=== PATIENT | male | born 1945 | race Caucasian/White ===

== ENCOUNTER 2016-06-16 20:25 | Inpatient (IN) | payer OTHER ==
[~2016-06-16] VITALS: Ht 190.5 cm; Wt 162.2 kg
[~2016-06-16 20:25] MED LIST: ALLOPURINOL300 M1 PO; AMLODIPINE BES2.5 MG PO; BACTRIM DS 8001 TAB PO; COUMADIN4 M1 PO; FUROSEMIDE80 M1 PO; GABAPENTIN300 M2 PO; JANTOVEN7.5 MG PO; KEFLEX500 MG PO; LISINOPRIL40 MG PO; MECLIZINE HCL12.5 M1 PO; METOLAZONE2.5 M1 PO; POTASSIUM CHLO20 ME2 PO; PRAVACHOL40 M1 PO; PREDNISONE10 M2 PO; PREDNISONE5 M1 PO; PREDNISONE5 MG PO; ROPINIROLE HCL0.5 MG PO; TOPROL XL 25MG25 MG PO; WARFARIN SODIU7.5 MG PO; ZYLOPRIM300 M1 PO
--- NOTE | 2016-06-16 21:00 | ED DYSPNEA/ASTHMA COMPLAINT ---
History of Present Illness General Chief Complaint: Chest Pain Stated Complaint: SOB AND CHEST PAIN X3 DAYS Source: patient, family, old records Exam Limitations: no limitations Vital Signs & Intake/Output Vital Signs & Intake/Output Vital Signs Date Time Temp Pulse Resp B/P Pulse O2 O2 Flow FiO2 Ox Delivery Rate 06/19 0014 97.9 78 20 102/60 94 Room Air 06/19 0000 CPAP 2.0L 06/18 2306 80 97 06/18 2000 Nasal 2.0L Cannula 06/18 1700 92 Nasal 2.0L Cannula 06/18 1530 97.4 78 20 102/60 94 Nasal 2.0L Cannula 06/18 0835 98.0 80 20 110/66 93 Room Air ED Intake and Output 06/19 0000 06/18 1200 Intake Total 1660 100 Output Total 1100 400 Balance 560 -300 Intake, Oral 1660 100 Output, Urine 1100 400 Patient 357 lb 359 lb Weight Allergies Coded Allergies: Phenothiazines (Mild, OCULOGYRIC 11/15/15) Iodinated Contrast Media - Oral and (IODINATED CONTRAST MEDIA - IV DYE) ( URTICARIA 11/15/15) Uncoded Allergies: SOMATADINE (Intermediate, DOSE RELATED- GETS HIVES 02/08/12) Reconcile Medications Allopurinol 300 MG TABLET 1 TAB PO DAILY GOUT (Reported) I TAB IN AM HALF TAB AT BED TIME Allopurinol (Zyloprim) 300 MG TABLET 150 MG PO AT BEDTIME GOUT Ascorbic Acid (Vitamin C) (Unknown Strength) TABLET (Unknown Dose) PO DAILY SUPPLEMENT (Reported) Cyanocobalamin (Vitamin B-12) 1,000 MCG TABLET 1 TAB PO DAILY SUPPLEMENT ( Reported) Escitalopram Oxalate 10 MG TABLET 1 TAB PO DAILY MENTAL HEALTH (Reported) Furosemide (Lasix) 80 MG TABLET 1 TAB PO DAILY DIURETIC (Reported) Potassium Chloride 20 MEQ TAB.ER.PRT 1 TAB PO DAILY SUPPLEMENT (Reported) Pravastatin Sodium 40 MG TABLET 1 TAB PO DAILY CHOLESTEROL (Reported) Ropinirole Hydrochloride (Requip) 0.25 MG TABLET 1 TAB PO BID RLS (Reported) Warfarin Sodium (Coumadin) 4 MG TABLET 1 TAB PO EOD BLOOD THINNER (Reported) Warfarin Sodium (Coumadin) 6 MG TABLET 1 TAB PO EOD BLOOD THINNER (Reported) Triage Note: PT STATES HE HAS HAD CHEST PAIN 4-5 TIMES AT HOME SINCE YESTERDAY. PT STATES HE HAS A HX OF A POSSIBLE MS, AFIB AND HAS A DEFIBULATOR TO HIS LEFT CHEST. PT IS ALERT AND ORIENTED, SKIN WARM AND DRY. PT STATES HE HAS ACTIVITY INTOLERANCE AND HAS BEEN SOB ON AND OFF. Triage Nurses Notes Reviewed? yes Onset: Abrupt Duration: day(s):, intermittent, waxing and waning Timing: recent history Severity: moderate Activities at Onset: none Prior Episodes/Possible Cause: no prior episodes Modifying Factors: Worsens With: other (EXERTION). HPI: Patient presents for evaluation of chest pain and shortness of breath over the past 3 days. Patient states he has had intermittent episodes of both. Past History Travel History Traveled to [place] past 21 day No Medical History Any Pertinent Medical History? see below for history Neurological: TIA EENT: NONE Cardiovascular: AFIB, CAD, hypertension, permanent pacemaker Respiratory: OBS SLEEP apnea, USES CPAP Gastrointestinal: hiatal hernia Hepatic: NONE Renal: chronic kidney disease, nephrolithiasis Musculoskeletal: gout, osteoarthritis Psychiatric: depression Endocrine: PRE-DIABETIC AIC Blood Disorders: NONE Cancer(s): NONE SURGICAL SERVICES DIRECTOR/Reproductive: NONE Other Medical Hx: cat scratch fever, psoriasis History of MRSA: No History of VRE: No History of CDIFF: No Surgical History Surgical History: appendectomy, cholecystectomy, colon resection, ileo jejeunal bypass with subsequent reversal bypass surgery bowel resection for adhesions with bowel ischemia incisional hernia repair Psychosocial History Who do you live with Family Services at Home None What is your primary language Belarusian Family History Family History, If Any: MOTHER Relation not specified for: FH: diabetes mellitus Hx Contributory? No Review of Systems Review of Systems Constitutional: Reports: no symptoms. EENTM: Reports: no symptoms. Respiratory: Reports: see HPI. Cardiovascular: Reports: see HPI. GI: Reports: no symptoms. Genitourinary: Reports: no symptoms. Musculoskeletal: Reports: no symptoms. Skin: Reports: no symptoms. Neurological/Psychological: Reports: no symptoms. Hematologic/Endocrine: Reports: no symptoms. Immunologic/Allergic: Reports: no symptoms. All Other Systems: Reviewed and Negative Physical Exam Physical Exam Respiratory: SEE BELOW Comments: Gen.: Well-nourished, well-developed, no acute respiratory distress. Overweight. Head: Normocephalic, atraumatic. Eyes: Normal inspection bilaterally Ears: Normal inspection bilaterally Nose: Normal inspection Throat/mouth : Moist mucosa Neck: Supple, full range of motion, no goiter Heart: Regular rate and rhythm, no murmurs rubs or gallops Lungs: Clear to auscultation bilaterally with normal air entry Chest: Nontender Back: Normal range of motion Abdomen: Soft, nontender, nondistended, normal bowel sounds Extremities: Normal range of motion grossly, equal radial pulses, calves nontender Neurologic: Cranial nerves grossly intact, speech is clear Skin: warm and dry Psychiatric: Calm, cooperative, no apparent delusions or hallucinations Core Measures ACS in differential dx? No Severe Sepsis Present: No Septic Shock Present: No Progress Differential Diagnosis: asthma, AMI, CHF, COPD, pneumonia, pneumothorax, unstable angina Plan of Care: Orders Procedure Date/time Status PROTHROMBIN TIME 06/19 06 Active CBC WITHOUT DIFFERENTIAL 06/19 06 Active BASIC ELECTROLYTES PLUS BUN&CR 06/19 06 Active OXYGEN SETUP CHG 06/17 UNK Complete OXYGEN 06/17 UNK Complete OXYGEN TRANSPORT 06/17 UNK Complete CONTIN. POS. AIRWAY PRESS. CHG 06/17 UNK Complete Current Medications Sig/Maria Dolores Start time Last Medication Dose Stop Time Status Admin Furosemide 80 MG DAILY 06/19 1000 AC (Lasix) Laboratory Tests 06/19/16 0615: Sodium Pending, Potassium Pending, Chloride Pending, Carbon Dioxide Pending, Anion Gap Pending, BUN Pending, Creatinine Pending, BUN/Creatinine Ratio Pending , PT Pending, INR Pending, CBC w Diff Pending, WBC Pending, RBC Pending, Hgb Pending, Hct Pending, MCV Pending, MCH Pending, RDW Pending, Plt Count Pending, MPV Pending, PUBS MCHC Pending Diagnostic Imaging: Discussed w/RAD: Radiology Read. CXR Impression: PATIENT: LOUANN WARD PRESENT AGE: 71 PATIENT ACCOUNT NO: [id number] : 45 LOCATION: [facility] [place] ORDERING PHYSICIAN: EBENEZER JANG MD SERVICE DATE: 06/16/16 EXAM TYPE: RAD - XRY-PORTABLE CHEST XRAY EXAMINATION: XR PORTABLE CHEST CLINICAL INFORMATION: 71-year-old male patient with CHF and COPD. COMPARISON: Portable chest x-ray on 11/15/2015. TECHNIQUE: AP portable semierect view of the chest. FINDINGS: The heart remains enlarged. Although overlying soft tissues makes interpretation difficult, there could be a developing pneumonia in the left lower lobe. The left pectoral pacemaker wires and generator are unchanged position. IMPRESSION: No definite CHF. Cardiomegaly. Question developing pneumonia in the left lower lobe. DICTATED BY: NEYMAR HERNÁNDEZ MD DATE/TIME DICTATED:06/16/162208 PRINT CUTTER:KURT DATE/TIME TRANSCRIBED:06/16/162208 CONFIDENTIAL, DO NOT COPY WITHOUT APPROPRIATE AUTHORIZATION. <Electronically signed in Other Vendor System> SIGNED BY: NEYMAR HERNÁNDEZ MD 06/16/162214 Initial ED EKG: LBBB, VENTRICULAR PACED RHYTHM WITH A RATE OF 83 Prior EKG: changed (NON-PACED RHYTHM ON PRIOR) Comments: 06/16/2016 9:01:52 PM patient is asymptomatic at this point, denying chest pain or shortness of breath. Departure Departure Disposition: HOME OR SELF CARE Condition: Stable Clinical Impression Primary Impression: Hypoxia Secondary Impressions: Anemia Qualifiers: Anemia type: unspecified type Qualified Code: D64.9 - Anemia, unspecified Chest pain Qualifiers: Chest pain type: unspecified Qualified Code: R07.9 - Chest pain, unspecified Dyspnea Qualifiers: Dyspnea type: dyspnea on exertion Qualified Code: R06.09 - Other forms of dyspnea Renal insufficiency Referrals: JASSON BIANCHI,JACKY cMkeon (PCP/Family) Departure Forms: Customer Survey General Discharge Information Admission Note Spoke With: RUPAL VIADL [facility] Documentation of Exam: Documentation of any treatments & extenuating circumstances including Concerns Regarding Discharge (functional status, medication knowledge or non-compliance, living conditions, etc.) that warrant an admission rather than observation: Patient presents with episodic dyspnea and hypoxia. His emergency department evaluation reveals hypoxia even in the presence of O2 supplementation at 2 L nasal cannula. Chest x-ray reveals the possibility of a developing left lower lobe infiltrate. Given the patient's advanced age and exertional dyspnea and chest pain or do not feel he is a good candidate for outpatient management at this time. I feel compliance with outpatient treatment could worsen his hypoxia and chest pain leading to a worsening of his overall clinical condition. I feel he now requires hospitalization with continuous cardiac monitoring for the possibility of dysrhythmias. He should also have serial troponin determinations and serial EKGs. Repeat chest x-ray should be obtained to assess for development of a pneumonia and this should be treated accordingly. Cardiology and pulmonary consultations should be considered. I feel the patient will require a multiple day hospitalization. Critical Care Note Critical Care Note Critical Care Time: 30-74 min
[2016-06-16 21:28] LABS: ABSOLUTE BASOPHIL COUNT 0 /CUMM (0.0-0.2); ABSOLUTE EOSINOPHIL COUNT 0.2 /CUMM (0.0-0.7); ABSOLUTE GRANULOCYTE CT 5.1 /CUMM (1.4-6.5); ABSOLUTE LYMPH COUNT 0.9 /CUMM (1.2-3.4); ABSOLUTE MONOCYTE COUNT 0.3 /CUMM (0.10-0.60); BASOPHIL % 0.4 % (0.0-2.0); EOSINOPHIL % 2.5 % (0-5); HEMATOCRIT 32.8 % (42-52); MEAN CORPUSCULAR HGB 28.3 PG (27.0-31.0); MEAN CORPUSCULAR HGB CONC 32.3 G/DL (33.0-37.0); MEAN CORPUSCULAR VOLUME 87.4 FL (80.0-94.0); MEAN PLATELET VOLUME 8.6 FL (7.4-10.4); PLATELET COUNT 195 /CUMM (130-400); RBC DISTRIBUTION WIDTH 18.3 % (11.5-14.5); RED BLOOD CELL CT 3.76 /CUMM (4.70-6.10); WHITE BLOOD CELL COUNT 6.5 /CUMM (4.8-10.8)
[2016-06-16] MEDS ORDERED: LASIX80 M1 PO (21:28)
[2016-06-16] MEDS ORDERED: LASIX20 M1 PO (21:28)
[2016-06-16] MEDS ORDERED: POTASSIUM CHLO20 ME2 PO (21:29)
[2016-06-16] MEDS ORDERED: ESCITALOPRAM OX10 MG PO (21:35)
[2016-06-16] MEDS ORDERED: COUMADIN4 M1 PO (21:37)
[2016-06-16 21:38] LABS: PT 33.4 SEC (9.4-12.5)
[2016-06-16] MEDS ORDERED: COUMADIN6 M1 PO (21:39)
[2016-06-16] MEDS ORDERED: VITAMIN B-121000 MC3 PO (21:47)
[2016-06-16] MEDS ORDERED: REQUIP0.25 MG PO (21:47)
[2016-06-16] MEDS ORDERED: VITAMIN C500 M8 PO (21:48)
--- NOTE | 2016-06-16 22:15 | RADIOLOGY REPORT ---
EXAMINATION: XR PORTABLE CHEST CLINICAL INFORMATION: 71-year-old male patient with CHF and COPD. COMPARISON: Portable chest x-ray on 11/15/2015. TECHNIQUE: AP portable semierect view of the chest. FINDINGS: The heart remains enlarged. Although overlying soft tissues makes interpretation difficult, there could be a developing pneumonia in the left lower lobe. The left pectoral pacemaker wires and generator are unchanged position. IMPRESSION: No definite CHF. Cardiomegaly. Question developing pneumonia in the left lower lobe.
--- NOTE | 2016-06-17 01:22 | History & Physical ---
MARCEL BIANCHI,[facility] 06/17/16 0121: General Information and HPI MD Statement: I have seen and personally examined LOUANN RODARTE and documented this H&P. The patient is a 71 year old M who presented with a patient stated chief complaint of shortness of breath and chest pain. Exam Limitations: no limitations History of Present Illness: This a 71-year-old male with past medical history of hypertension, CHF, CAD, ANTONELLA on night CPAP, A. fib on Coumadin, pacemaker placement, or a, sick ADD, and nephrolithiasis, TIA(2000), psoriasis (no longer on prednisone) , orthostatic hypotension, depression, and a [facility] admission on January 29 for acute on chronic right heart failure,presents with chief complaint of shortness of breath and chest pain. Patient reports his exertional dyspnea and chest pain started 3 days ago. The dyspnea is relieved by rest. Regarding his chest pain he describes it as stabbing, rated 5/10, localized around his lower substernum area and nonradiating. He does endorse nausea but however, he indicates that it is chronic for him due to his multiple medications. Patient also complains of a new onset of cough that started 3 days ago which he describes as nonproductive. Patient tates that his lower extremity swelling seems to be flactuating between +1 and +2 . He reports his furosemide 80mg was stopped by his PCP on Jun 02 and was instructed to take it prn based on his daily weights (Last dose 06/13 ). Last echocardiogram was in January 2016 which showed an ejection fraction of 40-45%. He denies any recent infection, fever, chills, vomiting, abdominal pain, or dysuria. Allergies/Medications Allergies: Coded Allergies: Phenothiazines (Mild, OCULOGYRIC 11/15/15) Iodinated Contrast Media - Oral and (IODINATED CONTRAST MEDIA - IV DYE) ( URTICARIA 11/15/15) Uncoded Allergies: SOMATADINE (Intermediate, DOSE RELATED- GETS HIVES 02/08/12) Home Med list Allopurinol 300 MG TABLET 1 TAB PO DAILY GOUT (Reported) I TAB IN AM HALF TAB AT BED TIME Allopurinol (Zyloprim) 300 MG TABLET 150 MG PO AT BEDTIME GOUT Ascorbic Acid (Vitamin C) (Unknown Strength) TABLET (Unknown Dose) PO DAILY SUPPLEMENT (Reported) Cyanocobalamin (Vitamin B-12) 1,000 MCG TABLET 1 TAB PO DAILY SUPPLEMENT ( Reported) Escitalopram Oxalate 10 MG TABLET 1 TAB PO DAILY MENTAL HEALTH (Reported) Furosemide (Lasix) 80 MG TABLET 1 TAB PO DAILY DIURETIC (Reported) Potassium Chloride 20 MEQ TAB.ER.PRT 1 TAB PO DAILY SUPPLEMENT (Reported) Pravastatin Sodium 40 MG TABLET 1 TAB PO DAILY CHOLESTEROL (Reported) Ropinirole Hydrochloride (Requip) 0.25 MG TABLET 1 TAB PO BID RLS (Reported) Warfarin Sodium (Coumadin) 4 MG TABLET 1 TAB PO EOD BLOOD THINNER (Reported) Warfarin Sodium (Coumadin) 6 MG TABLET 1 TAB PO EOD BLOOD THINNER (Reported) Past History Travel History Traveled to [place] past 21 day No Medical History Neurological: TIA EENT: NONE Cardiovascular: AFIB, CAD, hypertension, permanent pacemaker Respiratory: OBS SLEEP apnea, USES CPAP Gastrointestinal: hiatal hernia Hepatic: NONE Renal: chronic kidney disease, nephrolithiasis Musculoskeletal: gout, osteoarthritis Psychiatric: depression Endocrine: PRE-DIABETIC AIC Blood Disorders: NONE Cancer(s): NONE FUNERAL ARRANGEMENT DIRECTOR/Reproductive: NONE Other Medical Hx: cat scratch fever, psoriasis History of MRSA: No History of VRE: No History of CDIFF: No Surgical History Surgical History: appendectomy, cholecystectomy, colon resection, ileo jejeunal bypass with subsequent reversal bypass surgery bowel resection for adhesions with bowel ischemia incisional hernia repair Past Family/Social History Family History Relations & Conditions if any MOTHER Relation not specified for: FH: diabetes mellitus Psychosocial History Services at Home: None ETOH Use: denies use Illicit Drug Use: denies illicit drug use Functional Ability ADLs Independent: dressing, eating, toileting, bathing. Ambulation: independent IADLs Independent: shopping, housework, finances, food prep, telephone, transportation , medication admin. Review of Systems Review of Systems Constitutional: Denies: fever, malaise, weakness. EENTM: Denies: eye pain, eye drainage, eye tearing. Cardiovascular: Reports: chest pain, edema. Denies: orthopena, palpitations. Respiratory: Reports: cough. Denies: hemoptysis, orthopnea, sputum production. GI: Denies: diarrhea, distention, bowel incontinence, melena. Genitourinary: Denies: hematuria, hesitation, nocturia. Musculoskeletal: Denies: joint swelling, muscle pain. Skin: Reports: dryness, rash. Neurological/Psychological: Denies: anxiety, ataxia, cognitive dysfunction. Hematologic/Endocrine: Reports: no symptoms. Exam & Diagnostic Data Last 24 Hrs of Vital Signs/I&O Vital Signs Date Time Temp Pulse Resp B/P Pulse O2 O2 Flow FiO2 Ox Delivery Rate 06/17 0235 97.4 55 18 126/78 95 Nasal 2.0L Cannula 06/17 0220 Nasal 2.0L Cannula 06/17 0158 96.5 77 18 121/63 95 Room Air 06/16 2202 71 20 104/57 95 Nasal 2.0L Cannula 06/16 2128 Nasal 2.0L Cannula 06/16 2057 98.6 63 20 119/73 93 Nasal 2.0L Cannula Intake & Output 06/17 0800 06/17 0000 06/16 1600 Intake Total Output Total Balance Patient 165.108 kg Weight Physical Exam General Appearance Alert, Oriented X3, Cooperative Skin psoritic plaques in upeer and lower extremities HEENT Atraumatic, PERRLA, EOMI, Mucous Membr. moist/pink Neck Supple, No thryomegaly, +2 Carotid Pulse wo Bruit, JVD prominent on left side Lymphatic Cervical nl Cardiovascular Regular Rate, Normal S1, Normal S2 Lungs Clear to Auscultation, Normal Air Movement Abdomen Soft, No Tenderness, distended Neurological Normal Speech, Sensation Intact Extremities No Clubbing, No Cyanosis, +1 pitting edema bilaterally Vascular Pulses Symmetrical Last 24 Hrs of Labs/Kyle: Laboratory Tests 06/17/16 0330: Troponin I Pending 06/16/162134: pH 7.41, pCO2 43, pO2 68 L, HCO3 27, ABG O2 Sat (Measured) 93.0 L, P-50 (Temp Corrected) N, Carboxyhemoglobin 0.3 L, O2 Concentration % 2L, Temperature 98.6, O2 Delivery Method NC, Phlebotomy Draw Site RIGHT RADIAL 06/16/162104: Anion Gap 11, Estimated GFR 27 L, BUN/Creatinine Ratio 7.9, Glucose 85, Calcium 7.8 L, Phosphorus 3.7, Magnesium 1.7, Troponin I 0.04, Gol-K-Wqaurbgegpo Pept 3500 H, Free T4 1.28, Total T3 0.91 L, TSH &T3 &Free T4 Intrp 4.830 H, PT 33.4 H, INR 3.22 H, CBC w Diff NO MAN DIFF REQ, RBC 3.76 L, MCV 87.4, MCH 28.3, RDW 18.3 H, MPV 8.6, Gran % 78.0 H, Lymphocytes % 14.3 L, Monocytes % 4.8, Eosinophils % 2.5, Basophils % 0.4, Absolute Granulocytes 5.1, Absolute Lymphocytes 0.9 L, Absolute Monocytes 0.3, Absolute Eosinophils 0.2, Absolute Basophils 0, PUBS MCHC 32.3 L Microbiology 06/17 0042 BLOOD: Blood Culture - RECD 06/17 21 BLOOD: Blood Culture - RECD Diagnostic Data EKG Results no acute ischemic changes noted CXR Results SERVICE DATE: 06/16/16 EXAM TYPE: RAD - XRY-PORTABLE CHEST XRAY EXAMINATION: XR PORTABLE CHEST CLINICAL INFORMATION: 71-year-old male patient with CHF and COPD. COMPARISON: Portable chest x-ray on 11/15/2015. TECHNIQUE: AP portable semierect view of the chest. FINDINGS: The heart remains enlarged. Although overlying soft tissues makes interpretation difficult, there could be a developing pneumonia in the left lower lobe. The left pectoral pacemaker wires and generator are unchanged position. IMPRESSION: No definite CHF. Cardiomegaly. Question developing pneumonia in the left lower lobe. DICTATED BY: NEYMAR HERNÁNDEZ MD Assessment/Plan Assessment: This is a 71-year-old male with an extensive history of CHF, hypertension, hyperlipidemia, COPD, and a recent change in his furosemide use presents with chief complaints of exertional dyspnea and chest pain. Patient also has radiological findings suggestive of PNA. Impression * Acute on chronic CHF. * CAP. * Supratherapeutic INR Plan * Admit to telemetry for close cardiac monitoring * Will serial troponins and EKG to rule out ACS * Will initiate furosemide 60 mg IV one-time dose and then 40 mg IV bid * Strict ins and outs * Daily weights * Echocardiogram in the morning * Ceftriaxone and Azithromycin for treatment of possible CAP, if patient continues to be afebrile and no leukocytosis, will consider stopping ABX next day. * Continue nocturnal CPAP with settings of 18/4 * Will hold off Coumadin in the setting of supratherapeutic INR and restart when INR is at goal (2-3). As Ranked By This Provider Problem List: 1. Acute exacerbation of CHF (congestive heart failure) 2. Supratherapeutic INR Core Measures/Miscellaneous Acute Coronary Syndrome ACS Diagnosis: No Cerebrovascular Accident CVA/TIA Diagnosis: No Congestive Heart Failure CHF Diagnosis: No Venous Thromboembolism VTE Risk Factors: Acute medical illness, Age > 40 VTE Prophylaxis Ordered Inpt: Mech/Pharm Contraindicate (SUPRA THERAPUTIC INR) No Mech VTE prophylaxis d/t: LE Edema No VTE Pharm Prophylaxis d/t: Medical contraindication VTE Diagnosis: No VTE Type: NONE VTE Confirmed by (Test): NONE Severe Sepsis Severe Sepsis Present: No Septic Shock Septic Shock Present: No Miscellaneous Documentation Attending Case Discussed With: KEENAN VIDAL MD Primary Care Physician: JACKY SPAULDING MD Patient sees these Specialists LICENSED REACTOR OPERATOR Level of Patient Care: Telemetry Consults Needed: Consulting Specialty: Cardiology ESSENCE ANDERSON 06/17/16 0310: Resident Review Statement Resident Statement: examined this patient, discussed with advertising intern, agreed with advertising intern, discussed with family, reviewed EMR data (avail), discussed with nursing , reviewed images Other Findings: Mr Rodarte is a pleasant 71-year-old gentleman with a PMH of A. fib (on Coumadin), HTN, CAD, pacemaker implantation for sinus bradycardia and second- degree AV block, HLD, TIA and (2000), HLD, or say on nocturnal CPAP (22/09), psoriasis (previously on prednisone 5 mg daily discontinued one week ago), chronic lower extremity swelling, RLS, depression, CKD. Pt presents with 3 day duration of shortness of breath and substernal chest pain , nonradiating, 5/10, partially relieved with laying backwards. He reports 2 week duration of decreased appetite and intermittent episodes of nausea. Patient was previously on furosemide 80 mg daily until 06/02/2016 after discussion with his PCP to continue with PRN lasix based on his weight and lower extremity swelling. He took 1 dose on June 13 and reports stable lower extremity swelling since then. Echocardiogram (01/28/2016): 45-50%. RV systolic pressure 38.3mmHg Stress test (03/21/2012): No changes noted ROS: Mild productive cough past few days. Weight today: 364 pounds VS: BP 119/73, HR 63, RR 20, SPO2 93% on 2 LNC, T 98.6 PE: Alert, no acute distress. Irregular rhythm. Distant lung sounds, slight crackles appreciated on the left lung field. Hyperactive bowel sounds. 2+ pitting edema bilateral lower extremities Pertinent labs: WBC 6.5, H&H 10.6/32.8, potassium 3.8, BUN/Cr CR 19/2.4, glucose 85 INR: 3.22 ProBNP: 3500 Troponin: 0.04 AB.41/43/68/93/2 LNC CXR: No CHF. Cardiomegaly. Probable left lower lobe pneumonia Problem list: 1. CHF exacerbation 2. Community acquired pneumonia 3. Chronic kidney disease 4. Elevated INR Plan: * Admit to telemetry monitoring for continuous cardiac rhythms * Serial EKG/troponin: 0300 hrs., 0900 * Echocardiogram in the a.m. Consult with Dr. Howard in AM * Follow-up sputum, urine cultures. Patient is on ceftriaxone and azithromycin. Assess the need for continued antibiotics based on clinical picture in the AM * Monitor renal function in the setting of IV Lasix * Hearrt healthy Diet * Holdding coumadin based on elevated INR. Trend and dose accordingly * DVT prophylaxis: coumadin * Full code MARCY BIANCHI, [facility] 06/17/16 0540: Attending MD Review Statement Attending Statement Attending MD Statement: examined this patient, discuss w/resident/PA/PREVENTION RN, agreed w/resident/PA/PREVENTION RN Attending Assessment/Plan: 71 yo morbidly obese M with h/o Afib on coumadin, HTN, CAD, AV block s/p PPM, TIA, ANTONELLA on CPAP, gout (tapered off prednisone 1 week back), CKD stage 3B, chronic right and left heart failure, pw 3-day h/o exertional dyspnea and intermittent stabbing chest pain, progressing to dyspnea at rest today. Associated with nonproductive cough, no chills or fever. Patient was last admitted to [facility] Jan 2016 for acute on chronic CHF and discharged on lasix 80 mg daily. Prior to this he was on 160 mg daily but resulted in orthostatic hypotension, hence dose was reduced. However, recently on Jun 02 patient saw his PCP who suggested him to take lasix as needed only if he gains weight or notices worsening LE edema. So patient has not taken lasix since, except for one dose on Jun 13 when he noticed his LE edema had worsened from 1+ to 3+. No change in weight per patient. Vitals: afebrile, sats 88% RA --> 93% on 2L. Exam: Difficult to appreciate JVD. Chest bibasilar crackles (L>R), S1S2 irregularly irregular, LE: 3+ pitting pedal edema upto knees. Labs: no leukocytosis, INR 3.22, creat 2.4 (2.0-2.2), trop neg , proBNP 3500. AB.41/43/68/27. CXR: cardiomegaly, no definite CHF, ? developing pneumonia in LLL. Echo (2016): EF 45-50%, 1. Acute hypoxemic respiratory failure in the setting of acute on chronic heart failure, with possible developing LLL pneumonia. TRC nebs, strict I/Os, daily weights, IV lasix 60 mg now, followed by 40 BID, rule out ACS, obtain Echo, Cardio consult (Dr. Howard). Panculture done, IV ceftriaxone and azithro given in ER. Will check a rapid flu. I am not convinced about the pneumonia. Will continue abx for now, if he remains afebrile, with no leukocytosis I would DC antibiotics. PE seems less likely given supratherapeutic INR. 2. CKD stage 3B with slight worsening in creatinine. Monitor BUN/creatinine while on lasix. 3. Coagulopathy. Hold coumadin, recheck INR in AM. DVT ppx high INR on coumadin. Full code.
[2016-06-17 02:35] VITALS: BP 126/78
--- NOTE | 2016-06-17 05:40 | Admission Certification ---
Admission Certification Certification Statement - As attending physician, I certify that at the time of - admission, based on clinical presentation, severity of - symptoms, need for further diagnostic testing and - therapeutic interventions, and risk of adverse outcomes - without in-hospital treatment, in my clinical assessment, - this patient requires an acute hospital stay for a minimum - of two nights or longer. I have also considered psychsocial - factors such as support system, advanced age, financial - issues, cognitive issues, and failed out-patient treatments, - past re-admission history, safety of patient, and lack of - compliance as applicable. Specific rationale supporting this admission is: Acute hypoxemic respiratory failure, acute on chronic heart failure, possible LLL pneumonia.
[2016-06-17 07:54] VITALS: BP 112/68
--- NOTE | 2016-06-17 11:13 | PN- Housestaff ---
RENEE BIANCHI,[facility] 06/17/16 1112: Subjective Follow-up For: -Acute exacerbation of congestive heart failure -Chronic kidney disease stage III -Possible pneumonia -Atrial fibrillation on Coumadin Tele-Events Since Last Visit: Atrial fibrillation with rate 61-64 PVC Subjective: Patient was seen and examined this morning, his lying comfortably in his bed with a nasal cannula 2.5 L saturation 95%. The patient endorses feeling more better this morning, reported dry cough with chest pain upon coughing, he reported nausea that he used to have it from his depression medication. No overnight events was reported by patient or the nurses. Vital signs are stable Review of Systems Constitutional: Denies: fever, weakness. EENTM: Denies: blurred vision, nasal congestion. Cardiovascular: Reports: chest pain. Denies: palpitations. Respiratory: Reports: cough. Denies: orthopnea, short of breath, sputum production. Gastrointestinal: Reports: nausea. Denies: abdominal pain, vomiting. Genitourinary: Denies: dysuria, hematuria. Objective Last 24 Hrs of Vital Signs/I&O Vital Signs Date Time Temp Pulse Resp B/P Pulse O2 O2 Flow FiO2 Ox Delivery Rate 06/17 0800 95 Nasal 2.0L Cannula 06/17 0754 97.8 74 20 112/68 96 Nasal Cannula 06/17 0235 97.4 55 18 126/78 95 Nasal 2.0L Cannula 06/17 0220 Nasal 2.0L Cannula 06/17 0158 96.5 77 18 121/63 95 Room Air 06/16 2202 71 20 104/57 95 Nasal 2.0L Cannula 06/16 2128 Nasal 2.0L Cannula 06/16 2057 98.6 63 20 119/73 93 Nasal 2.0L Cannula Intake & Output 06/17 1600 06/17 0800 06/17 0000 Intake Total 480 100 Output Total 400 Balance 480 -300 Intake, IV Intake, Oral 480 100 Number 1 Bowel Movements Output, Urine 400 Patient 162.159 kg 165.108 kg Weight Physical Exam General Appearance: Alert, Oriented X3, Cooperative, No Acute Distress Skin: No Rashes, No Breakdown, No Significant Lesion HEENT: Atraumatic, PERRLA, EOMI, Mucous Membr. moist/pink Neck: Supple Cardiovascular: Regular Rate, Normal S1, Normal S2, No Murmurs Lungs: bilateral basal crackles Abdomen: Normal Bowel Sounds, Soft, No Tenderness Neurological: Normal Speech, Strength at 5/5 X4 Ext, Normal Tone, Sensation Intact, Cranial Nerves 3-12 NL, Reflexes 2+ Extremities: No Clubbing, No Cyanosis, bilateral pedal edema +2 Assessment/Plan Assessment: Mr. Rodarte is a 71 year old gentleman with a history of Atrial fibrillation on coumadin, second-degree AV block with pacemaker, CHF (Last ECHO in Jan 2016 EF 45-50%), TIA (2000), HTN, CAD, ANTONELLA on CPAP, gout, CKD stage III, orthostatic hypotension, psoriasis not on prednisone and depression. He presented with an increased exertional shortness of breath and chest pain since 3 days. H/o non productive cough, chest pain was 5/10 in intensity, non-radiating and occurs in intervals, bilateral lower limb swelling on Lasix. Chest xray showed No definite CHF. Cardiomegaly. Question developing pneumonia in the left lower lobe. Problem list #Acute respiratory failure due to acute on chronic heart failure #Atrial fibrillation on Coumadin #Pretension and hyperlipidemia #Questionable Left lower lobe pneumonia #Chronic kidney disease stage III #Gout #Depression #Sleep obstructive apnea #History of varicose veins #Acute respiratory failure 2/2 acute on chronic heart failure -TRC nebs -Continue nasal cannula 2.5 L saturation above 92% -Strict I/O charting and daily weight monitoring - IV Lasix 40mg BID -ECG shows no changes. Initial 2 trop levels were not elevated and were down trending. Trend Trop levels to rule out ACS -Consider obtain ECHO -Cardio consult by Dr. Howard #Acute fibrillation on Coumadin -INR on admission 3.22 -Will hold Coumadin for now because of supratherapeutic INR -Target INR is 2/2.5 #Hypertension and hyperlipidemia -Continue Lasix IV 40 twice a day -Continue pravastatin 40 mg once daily #Questionable Left lower lobe pneumonia -Chest x-ray suggestive for possible left lower lobe pneumonia -Patient received 1 dose of IV Ceftriaxone and Azithromycin -Continue off antibiotic giving the patient is a febrile and no WBC. The thinking process is that his respiratory symptoms is due to CHF exacerbation #CKD III -Admission creatinine is 2.4, days line is around 1.8-2 -Monitor BUN and Creatinine levels and electrolytes especially potassium while patient is on lasix #Gout -continue Allopurinol home dose #Depression -Continue Escitelopram home dose #Rest left leg syndrome -Continue ropinirole 0.25 mg twice a day by mouth #Sleep apnea -Continue CPAP at bedtime #History of varicose veins -Patient is wearing compression stocks #Diet heart healthy diet #DVT prophylaxis ALPs, Coumadin on hold for supratherapeutic INR #Code full code #Consultation cardiology Problem List: 1. Supratherapeutic INR 2. Acute exacerbation of CHF (congestive heart failure) 3. Obstructive sleep apnea syndrome 4. hx of atrial fibrillation 5. Benign essential hypertension 6. Chronic kidney disease Pain Ratin Pain Location: N/A Pain Goal: Remain pain free Pain Plan: as nedded Tomorrow's Labs & Rationales: INR and setting of atrial fibrillation on Coumadin with the superior therapeutic INR CBC and setting of possible pneumonia CMP tomorrow monitor chronic kidney disease on Lasix Consulting Request: Consulting Specialty: Cardiology DAVID MESA MD 06/17/16 1635: Attending MD Review Statement Attending Statement Attending MD Statement: examined this patient, discuss w/resident/PA/CUSTOMER ACCOUNT REPRESENTATIVE, agreed w/resident/PA/CUSTOMER ACCOUNT REPRESENTATIVE, reviewed EMR data (avail), discussed with nursing, discussed with case mgmt, reviewed images, amended to note Attending Assessment/Plan: The patient was seen and discussed with house staff. Agree with the plan of care as outlined. Cardiology input appreciated.
--- NOTE | 2016-06-17 14:18 | Cons- Cardiology ---
General Information and HPI Consulting Request Date of Consult: 06/17/16 Requested By: DAVID MESA MD History of Present Illness: Fortunato is a 71 year old male with a history of hypertension, dyslipidemia, coronary artery disease, permanent pacemaker and atrial fibrillation. At baseline he tends to be short of breath with exertion and was therefore started on a higher dose of Lasix at 160mg daily to treat this issue. As such, he became overdiuresed with rising creatinine and the Lasix was stopped. Beginning this past Wednesday, this patient noted worsening of her exertional shortness of breath. There was no accompanying orthopnea or leg edema beyond his baseline. He also noted a mild to moderate non-radiating chest tightness that was initially noted with exertion but progressed to being noticed at rest. Nausea is also present but is not uniquely associated with his chest discomfort. This patient also has a cough. To review this patient's prior history, he did have a recent hospital admission for fluid overload that I felt was exacerbated by Gabapentin. He switched to Requip for his restless legs with some improvement. He has also had hypertension and fluid overload related to copious NSAID use to treat his gout but he now refrains from taking NSAIDS. His baseline creatinine was 1.8 but this has now gone up considerably. His latest echocardiogram shows a normal EF of 70% with mild to moderate left ventricular hypertrophy, a markedly enlarged left atrium and mild tricuspid and pulmonic regurgitation. A mildly enlarged aortic root and ascending aorta was also noted. To review the patient's past cardiac workup, this patient has undergone a Persantine stress test, which showed no evidence of myocardial ischemia, although there is a fixed defect in the inferior wall. His ejection fraction on this study was 38%. An older echocardiogram, showed an ejection fraction of greater than 35 to 40% with a moderate left ventricular hypertrophy. The right ventricle was mildly to moderately dilated. The right atrium was mildly dilated and the left atrium was moderately enlarged. In terms of cardiac valves, there was trace mitral regurgitation, mild tricuspid regurgitation, and mildly elevated pulmonary pressures at 46 mmHg. A mildly dilated aortic root was also noted. This EF was clearly less than on his most recent echocardiogram. Prior cardiac workup has also included a cardiac catheterization, which was pursued for chest discomfort. This study showed mild luminal irregularities in the LAD and left circumflex and moderate luminal irregularities in the dominant right coronary artery. His EF was 35 to 40% with inferoapical hypokinesis on this study. In the past, this patient did have some palpitations and dizziness, and he has had at least one syncopal episode, which occurred while he was working in a hot kitchen. He is status post permanent pacemaker placement for symptomatic sinus bradycardia with second-degree AV block and greater than 3-second pauses. Finally, it should be recalled that this patient has had some prior episodes of oral numbness as well as other symptoms that are somewhat suggestive of TIA's. He has perhaps had some other more permanent neurologic deficits. This may be related to thrombotic emboli from his atrial fibrillation. He has had prior cardioversions that did not result in durable maintenance of normal sinus rhythm. He is therefore on Coumadin for stroke prophylaxis. Allergies/Medications Allergies: Coded Allergies: Phenothiazines (Mild, OCULOGYRIC 11/15/15) Iodinated Contrast Media - Oral and (IODINATED CONTRAST MEDIA - IV DYE) ( URTICARIA 11/15/15) Uncoded Allergies: SOMATADINE (Intermediate, DOSE RELATED- GETS HIVES 02/08/12) Home Med List: Allopurinol 300 MG TABLET 1 TAB PO DAILY GOUT (Reported) I TAB IN AM HALF TAB AT BED TIME Allopurinol (Zyloprim) 300 MG TABLET 150 MG PO AT BEDTIME GOUT Ascorbic Acid (Vitamin C) (Unknown Strength) TABLET (Unknown Dose) PO DAILY SUPPLEMENT (Reported) Cyanocobalamin (Vitamin B-12) 1,000 MCG TABLET 1 TAB PO DAILY SUPPLEMENT ( Reported) Escitalopram Oxalate 10 MG TABLET 1 TAB PO DAILY MENTAL HEALTH (Reported) Furosemide (Lasix) 80 MG TABLET 1 TAB PO DAILY DIURETIC (Reported) Potassium Chloride 20 MEQ TAB.ER.PRT 1 TAB PO DAILY SUPPLEMENT (Reported) Pravastatin Sodium 40 MG TABLET 1 TAB PO DAILY CHOLESTEROL (Reported) Ropinirole Hydrochloride (Requip) 0.25 MG TABLET 1 TAB PO BID RLS (Reported) Warfarin Sodium (Coumadin) 4 MG TABLET 1 TAB PO EOD BLOOD THINNER (Reported) Warfarin Sodium (Coumadin) 6 MG TABLET 1 TAB PO EOD BLOOD THINNER (Reported) Review of Systems Review of Systems: nausea, gout, cough Past History Travel History Traveled to [place] past 21 day No Medical History Blood Transfusion Hx: No Neurological: TIA EENT: NONE Cardiovascular: AFIB, CAD, hypertension, permanent pacemaker Respiratory: OBS SLEEP apnea, USES CPAP Gastrointestinal: hiatal hernia Hepatic: NONE Renal: chronic kidney disease, nephrolithiasis Musculoskeletal: gout, osteoarthritis Psychiatric: depression Endocrine: PRE-DIABETIC AIC Blood Disorders: NONE 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 Mother: of pancreatic cancer at age 72 Father: unknown history Psychosocial History Where Do You Live? Home Services at Home: None Smoking Status: Never Smoked ETOH Use: denies use Illicit Drug Use: denies illicit drug use Functional Ability ADLs Independent: dressing, eating, toileting, bathing. Ambulation: independent IADLs Independent: shopping, housework, finances, food prep, telephone, transportation , medication admin. Exam & Diagnostic Data Vital Signs and I&O Vital Signs Date Time Temp Pulse Resp B/P Pulse O2 O2 Flow FiO2 Ox Delivery Rate 06/17 0800 95 Nasal 2.0L Cannula 06/17 0754 97.8 74 20 112/68 96 Nasal Cannula 06/17 0235 97.4 55 18 126/78 95 Nasal 2.0L Cannula 06/17 0220 Nasal 2.0L Cannula 06/17 0158 96.5 77 18 121/63 95 Room Air 06/16 2202 71 20 104/57 95 Nasal 2.0L Cannula 06/16 2128 Nasal 2.0L Cannula 06/16 2057 98.6 63 20 119/73 93 Nasal 2.0L Cannula Intake & Output 06/17 1600 06/17 0800 06/17 0000 06/16 1600 06/16 0800 06/16 0000 Intake Total 100 Output Total 400 Balance -300 Intake, Oral 100 Output, Urine 400 Patient 358 lb 364 lb Weight Physical Exam: General: WD/ obese male in NAD; alert and oriented x 3 HEENT: NC/AT, PERRL, EOMI, clear oropharynx Neck: no JVD, no carotid bruit Heart: irregularly irregular without murmur, galop or rub Lungs: clear bilaterally Abdomen: soft, obese, NT, +ve bowel sounds Extremities: 2+ leg edema bilaterally Diagnostic Data EKG Results atrial fibrillation with IVCD and T wave inversion in leads V3-V5 Assessment/Plan Assessment/Plan * This patient has a wandering chest discomfort that was also noted in the setting of a cough. I suspect that this patient's discomfort is a musculoskeletal pain related to his cough. In consideration of his risk factors I recommend risk stratification with a pharmacologic stress test. * Agree with antibiotic therapy. * This patient has renal insufficiency that is beyond his baseline. We have been avoiding ACEI and ARB's due to this situation. I suspect that Fortunato was overdiuresed in the recent past. He should be on Lasix 80mg PO daily. Extra lasix can be given PRN if there is swelling beyond baseline. For now I would go with the 80 PO daily with careful monitoring of his BUN, creatinine and potassium. * Obtain an echocardiogram. * This patient has chronic atrial fibrillation. He was cardioverted in the past but would not stay in a sinus rhythm. Keep his INR between 2 and 2.5. * This patient had a Medtronic dual chamber pacemaker placed for symptomatic bradycardia with second degree AV block with greater than 3 second pauses. He is now in atrial fibrillation. Consult Acknowledgment - Thank you for your consult request.
[2016-06-17 15:41] VITALS: BP 110/70
[2016-06-18 00:15] VITALS: BP 110/60
[2016-06-18 08:03] LABS: ABSOLUTE BASOPHIL COUNT 0 /CUMM (0.0-0.2); ABSOLUTE EOSINOPHIL COUNT 0.2 /CUMM (0.0-0.7); ABSOLUTE LYMPH COUNT 0.9 /CUMM (1.2-3.4); ABSOLUTE MONOCYTE COUNT 0.4 /CUMM (0.10-0.60); BASOPHIL % 0.4 % (0.0-2.0); EOSINOPHIL % 2.5 % (0-5); GRANULOCYTE % 77.4 % (42.2-75.2); HEMATOCRIT 31.9 % (42-52); MEAN CORPUSCULAR HGB 28.2 PG (27.0-31.0); MEAN CORPUSCULAR HGB CONC 32.2 G/DL (33.0-37.0); MEAN CORPUSCULAR VOLUME 87.5 FL (80.0-94.0); MEAN PLATELET VOLUME 8.9 FL (7.4-10.4); PLATELET COUNT 188 /CUMM (130-400); RBC DISTRIBUTION WIDTH 18.8 % (11.5-14.5); RED BLOOD CELL CT 3.65 /CUMM (4.70-6.10); WHITE BLOOD CELL COUNT 6.4 /CUMM (4.8-10.8)
[2016-06-18 08:26] LABS: PT 31.8 SEC (9.4-12.5)
[2016-06-18 08:35] VITALS: BP 110/66
--- NOTE | 2016-06-18 09:34 | PN- Cardiology ---
Subjective Subjective: * Patient continues to report a cough. * atrial fibrillation with controlled heart rate * creatinine 2.4 * normal WBC count of 6.4 Objective Vital Signs and I&Os Vital Signs Date Time Temp Pulse Resp B/P Pulse O2 O2 Flow FiO2 Ox Delivery Rate 06/18 0835 98.0 80 20 110/66 93 Room Air 06/18 0051 70 95 06/18 0015 98.1 75 20 110/60 95 Nasal 2.0L Cannula 06/18 0000 95 Nasal 2.0L Cannula 06/17 1541 98.1 69 16 110/70 94 Nasal 2.5L Cannula Intake & Output 06/18 1600 06/18 0800 06/18 0000 06/17 1600 06/17 0800 06/17 0000 Intake Total 100 480 100 Output Total 400 850 400 Balance -300 -850 480 -300 Intake, IV Intake, Oral 100 480 100 Number 1 Bowel Movements Output, Urine 400 850 400 Patient 358 lb 364 lb Weight Physical Exam: General: WD/ obese male in NAD; alert and oriented x 3 Neck: no JVD, no carotid bruit Heart: irregularly irregular without murmur, galop or rub Lungs: clear bilaterally Extremities: 1+ leg edema bilaterally Assessment/Plan Assessment/Plan * This patient only has chest discomfort after coughing. There is no indication of an ACS. In consideration of his risk factors I recommend risk stratification with a pharmacologic stress test. * Agree with antibiotic therapy. * This patient has renal insufficiency that is beyond his baseline. We have been avoiding ACEI and ARB's due to this situation. I suspect that Fortunato was overdiuresed in the recent past. He should be on Lasix 80mg PO daily. Extra lasix can be given PRN if there is swelling beyond baseline. For now I would go with the 80 PO daily with careful monitoring of his BUN, creatinine and potassium. * Obtain an echocardiogram. * This patient has chronic atrial fibrillation. He was cardioverted in the past but would not stay in a sinus rhythm. Keep his INR between 2 and 2.5. * This patient had a Medtronic dual chamber pacemaker placed for symptomatic bradycardia with second degree AV block with greater than 3 second pauses. He is now in atrial fibrillation. Continue telemetry? Yes
--- NOTE | 2016-06-18 11:50 | PN- Housestaff ---
RENEE BIANCHI,[facility] 06/18/16 1148: Subjective Follow-up For: -Acute exacerbation of congestive heart failure -Chronic kidney disease stage III -Possible pneumonia -Atrial fibrillation on Coumadin Subjective: Patient was seen and examined this morning, his lying comfortably in his bed with CPAP. The patient endorses having cough that is productive of scanty clear sputum and chest pain only when he coughs. He has no fevers but says he has always had chills, even prior to admission. He endorses nausea, but again, he says that is not a new symptom. No overnight events was reported by patient or the nurses. Vital signs are stable. His pedal edema has reduced and is now at 1+. He is making adequate urine I/O -1000. Review of Systems Constitutional: Denies: see HPI. Objective Last 24 Hrs of Vital Signs/I&O Vital Signs Date Time Temp Pulse Resp B/P Pulse O2 O2 Flow FiO2 Ox Delivery Rate 06/18 1700 92 Nasal 2.0L Cannula 06/18 1530 97.4 78 20 102/60 94 Nasal 2.0L Cannula 06/18 0835 98.0 80 20 110/66 93 Room Air 06/18 0800 95 Nasal 2.0L Cannula 06/18 0051 70 95 06/18 0015 98.1 75 20 110/60 95 Nasal 2.0L Cannula 06/18 0000 95 Nasal 2.0L Cannula Intake & Output 06/18 1600 06/18 0800 06/18 0000 Intake Total 1000 100 Output Total 850 400 850 Balance 150 -300 -850 Intake, Oral 1000 100 Output, Urine 850 400 850 Patient 162.159 kg Weight Physical Exam General Appearance: Alert, Oriented X3, Cooperative, No Acute Distress Skin: No Rashes, No Breakdown, No Significant Lesion HEENT: Atraumatic, PERRLA, EOMI, Mucous Membr. moist/pink Neck: Supple Cardiovascular: Normal S1, Normal S2, No Murmurs Lungs: Clear to Auscultation, Normal Air Movement Abdomen: Normal Bowel Sounds, Soft, No Tenderness, distended abdomen Neurological: Normal Gait, Normal Speech, Strength at 5/5 X4 Ext, Normal Tone, Sensation Intact, Cranial Nerves 3-12 NL, Reflexes 2+ Extremities: No Clubbing, No Cyanosis, bilateral padel edema +1 Assessment/Plan Assessment: Mr. Rodarte is a 71 year old gentleman with a history of Atrial fibrillation on coumadin (withheld due to supratherapeutic INR), second-degree AV block with pacemaker, CHF (Last ECHO in Jan 2016 EF 45-50%), TIA (2000), HTN, CAD, ANTONELLA on CPAP, gout, CKD stage III, orthostatic hypotension, psoriasis not on prednisone and depression. He presented with an increased exertional shortness of breath and chest pain since 3 days. H/o non productive cough, chest pain was 5/10 in intensity, non-radiating and occurs in intervals, bilateral lower limb swelling on Lasix. Chest xray showed No definite CHF. Cardiomegaly. Question developing pneumonia in the left lower lobe. Problem list #Acute respiratory failure due to acute on chronic heart failure #Atrial fibrillation on Coumadin #Hypertension and hyperlipidemia #Questionable Left lower lobe pneumonia #Chronic kidney disease stage III #Gout #Depression #Sleep obstructive apnea #History of varicose veins #Acute respiratory failure 2/2 acute on chronic heart failure -[facility] nebs -Patient has been on nasal cannula 2.5 L saturation above 92%. Trial him off O2 today and monitor saturations off O2 and on ambulation. -Strict I/O charting and daily weight monitoring, He is making adequate urine I/ O -1000 -Lasix 80mg PO daily.satarting from tomorrow -Extra lasix can be given PRN if there is swelling beyond baseline -careful monitoring of his BUN, creatinine and electrolytes -ECG shows no changes. trop levels were not elevated and were down trending -Recommendation for pharmacologic stress test as an outpatienn #Acute fibrillation on Coumadin -INR on admission 3.22, toady it is 3, continue off coumadin -Will continue to hold Coumadin for now because of supratherapeutic INR -Target INR is 2/2.5 #Hypertension and hyperlipidemia -Stop Lasix IV 40 twice a day and switch to Lasix 80mg PO daily starting from tomorrow -Continue pravastatin 40 mg once daily #Questionable Left lower lobe pneumonia -Chest x-ray suggestive for possible left lower lobe pneumonia -Patient received 1 dose of IV Ceftriaxone and Azithromycin -Continue off antibiotic giving the patient is a febrile and no WBC. The thinking process is that his respiratory symptoms is due to CHF exacerbation -chronic cough, start Tessalon caps 100mg TID PO, Mucinex 600 mg q12 PO and Omeprazole 20mg PO daily form possible GERD as a cause of his chronic cough #CKD III -Admission creatinine is 2.4, baseline is around 1.8-2 -Monitor BUN and Creatinine levels and electrolytes especially potassium while patient is on lasix #Gout -continue Allopurinol home dose #Depression -Continue Escitelopram home dose #Rest left leg syndrome -Continue ropinirole 0.25 mg twice a day by mouth #Sleep apnea -Continue CPAP at bedtime #History of varicose veins -Patient is wearing compression stocks #Diet heart healthy diet #DVT prophylaxis ALPs, Coumadin on hold for supratherapeutic INR #Code full code #Consultation cardiology Problem List: 1. Chronic kidney disease 2. Supratherapeutic INR 3. Acute exacerbation of CHF (congestive heart failure) 4. hx of atrial fibrillation 5. Benign essential hypertension Pain Ratin Pain Location: n/a Pain Goal: Remain pain free Pain Plan: see medication Tomorrow's Labs & Rationales: CBC, CMP, INR Consulting Request: Consulting Specialty: Cardiology DAVID MESA MD 06/18/16 2202: Attending MD Review Statement Attending Statement Attending MD Statement: examined this patient, discuss w/resident/PA/LEPIDOPTERIST, agreed w/resident/PA/LEPIDOPTERIST, reviewed EMR data (avail), discussed with nursing, discussed with case mgmt, amended to note Attending Assessment/Plan: The patient was seen and discussed with house staff. Agree with the above plan of care.
[2016-06-18 15:30] VITALS: BP 102/60
[2016-06-19 00:14] VITALS: BP 102/60
--- NOTE | 2016-06-19 07:42 | PN- Housestaff ---
RENEE BIANCHI,[facility] 06/19/16 0742: Subjective Follow-up For: -Acute exacerbation of congestive heart failure -Chronic kidney disease stage III -Possible pneumonia -Atrial fibrillation on Coumadin Tele-Events Since Last Visit: A.inderjit with rate of 60-69, PVC Subjective: Patient was seen and examined this morning. He has been on CPAP overnight for his ANTONELLA. He reports exertional shortness of breath when he ambulated yesterday. He is not short of breath while at rest. Following starting mucinex, patient says his cough is now not dry anymore but he does not bring up any sputum. No fevers. He continues to have nausea, that is not different from what he previously attributed to the antidepressants. Review of Systems Constitutional: Denies: see HPI. Objective Last 24 Hrs of Vital Signs/I&O Vital Signs Date Time Temp Pulse Resp B/P Pulse O2 O2 Flow FiO2 Ox Delivery Rate 06/19 0805 98.4 78 20 110/68 94 BIPAP 06/19 0800 Nasal 2.0L Cannula 06/19 0014 97.9 78 20 102/60 94 Room Air 06/19 0000 CPAP 2.0L 06/18 2306 80 97 06/18 2000 Nasal 2.0L Cannula 06/18 1700 92 Nasal 2.0L Cannula 06/18 1530 97.4 78 20 102/60 94 Nasal 2.0L Cannula Intake & Output 06/19 1600 06/19 0800 06/19 0000 Intake Total 0 660 Output Total 400 250 Balance -400 410 Intake, IV 0 Intake, Oral 0 660 Number 0 Bowel Movements Output, Urine 400 250 Physical Exam General Appearance: Alert, Oriented X3, Cooperative, No Acute Distress Skin: No Rashes, No Breakdown, No Significant Lesion HEENT: Atraumatic, PERRLA, EOMI, Mucous Membr. moist/pink Neck: Supple Cardiovascular: Normal S1, Normal S2, No Murmurs, irrigular irrigular Lungs: Clear to Auscultation, Normal Air Movement Abdomen: Normal Bowel Sounds, Soft, No Tenderness Neurological: Normal Gait, Normal Speech, Strength at 5/5 X4 Ext, Normal Tone, Sensation Intact, Cranial Nerves 3-12 NL, Reflexes 2+ Extremities: No Clubbing, No Cyanosis, Normal Pulses, +2 pedel edema BL Assessment/Plan Assessment: Mr. Rodarte is a 71 year old gentleman with a history of Atrial fibrillation on coumadin (withheld due to supratherapeutic INR), second-degree AV block with pacemaker, CHF (Last ECHO in Jan 2016 EF 45-50%), TIA (2000), HTN, CAD, ANTONELLA on CPAP, gout, CKD stage III, orthostatic hypotension, psoriasis not on prednisone and depression. He presented with an increased exertional shortness of breath and chest pain since 3 days. H/o non productive cough, chest pain was 5/10 in intensity, non-radiating and occurs in intervals, bilateral lower limb swelling on Lasix. Chest xray showed No definite CHF. Cardiomegaly. Question developing pneumonia in the left lower lobe. Problem list #Acute respiratory failure due to acute on chronic heart failure #Atrial fibrillation on Coumadin #Hypertension and hyperlipidemia #Questionable Left lower lobe pneumonia #Chronic kidney disease stage III #Gout #Depression #Sleep obstructive apnea #History of varicose veins #Acute respiratory failure 2/2 acute on chronic heart failure -[facility] nebs -Patient has been on nasal cannula 2.5 L saturation above 92%. Trial him off O2 with O2 saturation 93% on rest and 90% on ambulation -Strict I/O charting and daily weight monitoring, He is making adequate urine I/ O -400 -Lasix 80mg PO daily -Extra lasix can be given PRN if there is swelling beyond baseline -careful monitoring of his BUN, creatinine and electrolytes -ECG shows no changes. trop levels were not elevated and were down trending -Recommendation for pharmacologic stress test as an outpatienn #Acute fibrillation on Coumadin -INR 3.01 continue off coumadin -Will continue to hold Coumadin for now because of supratherapeutic INR -Target INR is 2/2.5 #Hypertension and hyperlipidemia -Lasix 80mg PO daily -Continue pravastatin 40 mg once daily #Questionable Left lower lobe pneumonia -Chest x-ray suggestive for possible left lower lobe pneumonia -Patient received 1 dose of IV Ceftriaxone and Azithromycin -Continue off antibiotic giving the patient is a febrile and no WBC. The thinking process is that his respiratory symptoms is due to CHF exacerbation -chronic cough, start Tessalon caps 100mg TID PO, Mucinex 600 mg q12 PO and Omeprazole 20mg PO daily form possible GERD as a cause of his chronic cough #CKD III -Admission creatinine is 2.4, baseline is around 1.8-2 -Monitor BUN and Creatinine levels and electrolytes especially potassium while patient is on lasix #Gout -continue Allopurinol home dose #Depression -Continue Escitelopram home dose #Rest left leg syndrome -Continue ropinirole 0.25 mg twice a day by mouth #Sleep apnea -Continue CPAP at bedtime #History of varicose veins -Patient is wearing compression stocks #Diet heart healthy diet #DVT prophylaxis ALPs, Coumadin on hold for supratherapeutic INR #Code full code #Consultation cardiology Problem List: 1. Benign essential hypertension 2. Obstructive sleep apnea syndrome 3. Supratherapeutic INR 4. Acute exacerbation of CHF (congestive heart failure) 5. Gout 6. Chronic kidney disease 7. hx of atrial fibrillation Pain Ratin Pain Location: n/a Pain Goal: Remain pain free Pain Plan: n/a Tomorrow's Labs & Rationales: none Consulting Request: Consulting Specialty: Cardiology DAVID MESA MD 06/19/16 1601: Attending MD Review Statement Attending Statement Attending MD Statement: examined this patient, discuss w/resident/PA/FAMILY SERVICE ASSISTANT, agreed w/resident/PA/FAMILY SERVICE ASSISTANT, reviewed EMR data (avail), discussed with nursing, discussed with case mgmt, amended to note Attending Assessment/Plan: The patient was seen and discussed with house staff. Agree with plan of care as outlined. Needs close OP follow-up of renal function.
[2016-06-19 08:01] LABS: ABSOLUTE BASOPHIL COUNT 0 /CUMM (0.0-0.2); ABSOLUTE EOSINOPHIL COUNT 0.2 /CUMM (0.0-0.7); ABSOLUTE MONOCYTE COUNT 0.3 /CUMM (0.10-0.60); BASOPHIL % 0.5 % (0.0-2.0); EOSINOPHIL % 2.7 % (0-5); GRANULOCYTE % 77.1 % (42.2-75.2); MEAN CORPUSCULAR HGB 28.2 PG (27.0-31.0); MEAN PLATELET VOLUME 9.1 FL (7.4-10.4); PLATELET COUNT 201 /CUMM (130-400); RBC DISTRIBUTION WIDTH 19.1 % (11.5-14.5); RED BLOOD CELL CT 3.64 /CUMM (4.70-6.10); WHITE BLOOD CELL COUNT 6.5 /CUMM (4.8-10.8)
[2016-06-19 08:05] VITALS: BP 110/68
[2016-06-19 08:18] LABS: PT 31.3 SEC (9.4-12.5)
--- NOTE | 2016-06-19 13:53 | Patient Discharge Instructions ---
Discharge Instructions General Discharge Information Special Instructions: -Please follow up with your primary care physician within one week after discharge -Please follow up with cradiologist Dr. Howard after discharge Acute Coronary Syndrome Inclusion Criteria At DC or during hospital stay patient has or had the following: ACS DIAGNOSIS No Discharge Core Measures Meds if any: Prescribed or Continued at Discharge Meds if any: NOT Prescribed or Continued at Discharge Congestive Heart Failure Inclusion Criteria At DC or during hospital stay patient has or had the following: CHF DIAGNOSIS No Discharge Core Measures Meds if any: Prescribed or Continued at Discharge Meds if any: NOT Prescribed or Continued at Discharge Cerebrovascular accident Inclusion Criteria At DC or during hospital stay patient has or had the following: CVA/TIA Diagnosis No Discharge Core Measures Meds if any: Prescribed or Continued at Discharge Meds if any: NOT Prescribed or Continued at Discharge Venous thromboembolism Inclusion Criteria VTE Diagnosis No VTE Type NONE VTE Confirmed by (Test) NONE Discharge Core Measures - Per Current guidelines, there needs to be overlap - treatment for the first 5 days of Warfarin therapy. - If discharged on Warfarin prior to 5 days of - overlap therapy, the patient will need to be - assessed for post discharge needs including - *Post discharge parental anticoagulation - *Warfarin and/or parental anticoagulation education - *Follow up date to check INR post discharge At least 5 days overlap therapy as Inpatient Yes Meds if any: Prescribed or Continued at Discharge Note: Overlap Therapy is Warfarin and Anticoagulant Meds if any: NOT Prescribed or Continued at Discharge
--- NOTE | 2016-06-19 14:20 | Discharge Summary ---
See Addendum Visit Information Visit Dates Admission Date: 06/16/16 Discharge Date: 06/19/16 Hospital Course Course Attending Physician: DAVID MESA MD Primary Care Physician: JASSON BIANCHI,JACKY Mckeon Consulting Request: Consulting Specialty: Cardiology Hospital Course: Mr. Rodarte is a 71 year old gentleman with a history of Atrial fibrillation on coumadin, second-degree AV block with pacemaker, CHF (Last ECHO in Jan 2016 EF 45-50%), TIA (2000), HTN, CAD, ANTONELLA on CPAP, gout, CKD stage III, orthostatic hypotension, psoriasis not on prednisone and depression. He presented with an increased exertional shortness of breath and chest pain since 3 days prior to admission. H/o non productive cough, chest pain was 5/10 in intensity, non- radiating and occurs in intervals, bilateral lower limb swelling on Lasix. Problem list #Acute hypoxemic respiratory failure due to acute on chronic heart failure #Atrial fibrillation on Coumadin #Hypertension and hyperlipidemia #Questionable Left lower lobe pneumonia #Chronic kidney disease stage III #Gout #Depression #Sleep obstructive apnea #History of varicose veins #Acute hypoxemic respiratory failure 2/2 acute on chronic heart failure -ABG with PH 7.41, PO2 68, pco2 43, Hco3 27 -Patient has been on nasal cannula 2.5 L saturation above 92%. Trial him off O2 with O2 saturation 93% on rest and 90% on ambulation -Patient was on Lasix 40 mg BID IV and was switched to 80mg PO daily -ECG shows no changes. trop levels were not elevated and were down trending -Cardic consulation was obtained, Dr. Membreno -Recommendation for pharmacologic stress test as an outpatienn #Questionable Left lower lobe pneumonia -Chest x-ray suggestive for possible left lower lobe pneumonia -Patient received 1 dose of IV Ceftriaxone and Azithromycin -Continue off antibiotic given the patient is afebrile and no WBC. -chronic cough, start Tessalon caps 100mg TID PO, Mucinex 600 mg q12 PO and Omeprazole 20mg PO daily form possible GERD as a cause of his chronic cough #Acute fibrillation on Coumadin -Target INR is 2/2.5 -Patient was supratheraputic on admission, warfrain was held -Patient was instructed to continue to take warfrain after discharge #Hypertension and hyperlipidemia -Lasix 80mg PO daily -Continue pravastatin 40 mg once daily #Gout -continue Allopurinol home dose #Depression -Continue Escitelopram home dose #Rest left leg syndrome -Continue ropinirole 0.25 mg twice a day by mouth #Sleep apnea -Continue CPAP at bedtime, patient continued to use it during his hospital stay #History of varicose veins -Compression stocks Allergies: Coded Allergies: Phenothiazines (Mild, OCULOGYRIC 11/15/15) Iodinated Contrast Media - Oral and (IODINATED CONTRAST MEDIA - IV DYE) ( URTICARIA 11/15/15) Uncoded Allergies: SOMATADINE (Intermediate, DOSE RELATED- GETS HIVES 02/08/12) Disposition Summary Disposition Principal Diagnosis: Acute hypoxemic respiratory failure due to acute on chronic heart failure Additional Diagnosis: Atrial fibrillation on Coumadin Discharge Disposition: home or self care Discharge Instructions General Discharge Information Code Status: Full Code Patient's Diet: heart heathy diet Patient's Activity: as tolerated Follow-Up Instructions/Appts: -Please follow up with your primary care physician within one week after discharge -Please follow up with cradiologist Dr. Membreno after discharge Medications at Discharge Discharge Medications: Continue taking these medications: Pravastatin Sodium (Pravastatin Sodium) 40 MG TABLET 1 Tablet ORAL DAILY Qty = 90 Comments: LAST TAKEN 05/14 AT 4PM Allopurinol (Allopurinol) 300 MG TABLET 1 Tablet ORAL DAILY Qty = 135 Instructions: I TAB IN AM HALF TAB AT BED TIME Comments: Last Taken: 06/19/16 Time: 10AM Allopurinol (Zyloprim) 300 MG TABLET 150 Milligram ORAL AT BEDTIME Qty = 15 Comments: Last Taken: 06/18/16 Time: 9PM Furosemide (Lasix) 80 MG TABLET 1 Tablet ORAL DAILY Comments: Last Taken: 06/19/16 Time: 10AM Potassium Chloride (Potassium Chloride) 20 MEQ TAB.ER.PRT 1 Tablet ORAL DAILY Comments: Last Taken: 06/19/16 Time: 10AM Escitalopram Oxalate (Escitalopram Oxalate) 10 MG TABLET 1 Tablet ORAL DAILY Qty = 30 Comments: Last Taken: 06/19/16 Time: 10AM Warfarin Sodium (Coumadin) 4 MG TABLET 1 Tablet ORAL Every other day Instructions: patient is taking 4 mg of warfain on odd days Comments: NOT GIVEN IN HOSPITAL Warfarin Sodium (Coumadin) 6 MG TABLET 1 Tablet ORAL Every other day Instructions: patient is taking 6 mg warfrain on even days Comments: PER PT ALTERNATES EOD WITH 4MG Ropinirole Hydrochloride (Requip) 0.25 MG TABLET 1 Tablet ORAL TWICE DAILY Qty = 180 Comments: Last Taken: 06/19/16 Time: 10AM Cyanocobalamin (Vitamin B-12) 1,000 MCG TABLET 1 Tablet ORAL DAILY Comments: NOT GIVEN IN HOSPITAL Ascorbic Acid (Vitamin C) (Unknown Strength) TABLET Unknown Dose ORAL DAILY Comments: NOT GIVEN IN HOSPITAL Copies To: JASSON BIANCHI,JACKY MEMBRENO MD PhD,JACKY Gomez Attending MD Review Statement Documenting Attending: DAVID MESA MD Other Findings: The patient was seen and agree with the plan of care upon discharge.
--- NOTE | 2016-06-19 17:23 | PN- Cardiology ---
Subjective Subjective: * Patient continues to cough. No chest discomfort or shortness of breath. * atrial fibrillation with controlled heart rate * creatinine increased to 2.7 Objective Vital Signs and I&Os Vital Signs Date Time Temp Pulse Resp B/P Pulse O2 O2 Flow FiO2 Ox Delivery Rate 06/19 0805 98.4 78 20 110/68 94 BIPAP 06/19 0800 Nasal 2.0L Cannula 06/19 0014 97.9 78 20 102/60 94 Room Air 06/19 0000 CPAP 2.0L 06/18 2306 80 97 06/18 2000 Nasal 2.0L Cannula Intake & Output 06/19 1600 06/19 0800 06/19 0000 06/18 1600 06/18 0800 06/18 0000 Intake Total 705 0 660 1000 100 Output Total 275 400 250 850 400 850 Balance 430 -400 410 150 -300 -850 Intake, IV 0 Intake, Oral 705 0 660 1000 100 Number 1 0 Bowel Movements Output, Urine 275 400 250 850 400 850 Patient 357 lb Weight Physical Exam: General: WD/ obese male in NAD; alert and oriented x 3 Neck: no JVD, no carotid bruit Heart: irregularly irregular without murmur, galop or rub Lungs: clear bilaterally Extremities: 1+ leg edema bilaterally Assessment/Plan Assessment/Plan * This patient only has chest discomfort after coughing. There is no indication of an ACS. In consideration of his risk factors I recommend risk stratification with a pharmacologic stress test. This can be done as an outpatient. * In consideration of this patient's lack of fever and the absence of an elevated WBC count consideration may be given to a viral syndrome. * This patient has renal insufficiency that is beyond his baseline. We have been avoiding ACEI and ARB's due to this situation. I suspect that Fortunato was overdiuresed in the recent past. He should be on Lasix 80mg PO daily. Extra lasix can be given PRN if there is swelling beyond baseline. For now I would go with the 80 PO daily with careful monitoring of his BUN, creatinine and potassium. If his creatinine continues to rise I would hold his Lasix for one day and then decrease it to 40mg daily. * Obtain an echocardiogram. * This patient has chronic atrial fibrillation. He was cardioverted in the past but would not stay in a sinus rhythm. Keep his INR between 2 and 2.5. * This patient had a Medtronic dual chamber pacemaker placed for symptomatic bradycardia with second degree AV block with greater than 3 second pauses. He is now in atrial fibrillation. Continue telemetry? Yes
--- NOTE | 2016-06-19 22:31 | ECHOCARDIOGRAM REPORT ---
LOUANN WARD Age: 71 : 1945 Gender: M Exam Date: 06/19/2016 12:48 Exam Location: [facility] Ht (in): 75 Wt (lb): 364 BSA: 3.03 BP: 110 / 66 Ordering Physician: ESSENCE ANDERSON MD Referring Physician: ESSENCE ANDERSON MD Technologist: Louann Horne [facility] Room Number: [id number] Indications: CHEST PAIN Rhythm: Atrial fibrillation Technical Quality: technically difficult FINDINGS Left Ventricle Normal left ventricular size, wall thickness and systolic function with no obvious regional wall motion abnormalities. The ejection fraction is visually estimated at 55%. Right Ventricle The right ventricle is moderately enlarged with normal function. Pacemaker lead noted in the right cardiac chambers. Right Atrium The right atrium is normal in size. Left Atrium The left atrium is mildly enlarged. The interatrial septum is intact. Mitral Valve The mitral valve is normal in structure and function. There is trace mitral regurgitation. Aortic Valve Structurally normal aortic valve without significant sclerosis or stenosis. There is no aortic regurgitation. Tricuspid Valve The tricuspid valve is normal in structure and function. There is trace tricuspid regurgitation. Pulmonary artery systolic pressure is mildly elevated to 45mmHg. Pulmonic Valve Structurally normal pulmonic valve. There is no pulmonic regurgitation. Pericardium Normal pericardium without effusion. No pleural effusion. Great Vessels Normal aortic root dimension. The aortic arch and great vessels are well seen and are normal. CONCLUSIONS 1. Normal EF of 55%. 2. Moderate right ventricular enlargment. 3. Mild left atrial enlargement. 4. Trace mitral regurgitation. 5. Trace tricuspid regurgitation. 6. Mild pulmonary hypertension. Zurdo Howard M.D. (Electronically Signed) Final Date: 19 June 2016 22:30 MEASUREMENTS (Male / Female) Normal Values 2D ECHO LV Diastolic Diameter PLAX 5.2 cm 4.2 - 5.9 / 3.9 - 5.3 cm LV Systolic Diameter PLAX 3.7 cm 2.1 - 4.0 cm LV Fractional Shortening PLAX 28.8 % 25 - 46 % LV Ejection Fraction 2D Teich 55.1 % IVS Diastolic Thickness 1.2 cm LVPW Diastolic Thickness 1.1 cm LV Relative Wall Thickness 0.4 LVOT Diameter 2.1 cm Aortic Root Diameter 3.4 cm LA Systolic Diameter LX 4.3 cm 3.0 - 4.0 / 2.7 - 3.8 cm Ascending Aorta Diameter 3.2 cm DOPPLER AV Peak Velocity 140.0 cm/s AV Peak Gradient 7.8 mmHg AV Mean Velocity 102.0 cm/s AV Mean Gradient 5.0 mmHg AV Velocity Time Integral 26.1 cm LVOT Peak Velocity 102.0 cm/s LVOT Peak Gradient 4.2 mmHg LVOT Mean Velocity 64.2 cm/s LVOT Mean Gradient 2.0 mmHg LVOT Velocity Time Integral 18.9 cm LVOT Stroke Volume 65.5 cm AV Area Cont Eq vti 2.5 cm AV Area Cont Eq pk 2.5 cm MV Peak Velocity 88.0 cm/s MV Peak Gradient 3.1 mmHg MV Mean Velocity 53.1 cm/s MV Mean Gradient 1.0 mmHg Mitral E Point Velocity 82.3 cm/s MV PHT Velocity 87.6 cm/s MV Deceleration [place] 366.0 cm/s MV Pressure Half Time 71.8 ms MV Area PHT 3.1 cm MV Deceleration Time 151.3 ms TR Peak Velocity 280.0 cm/s TR Peak Gradient 31.4 mmHg PV Peak Velocity 87.8 cm/s PV Peak Gradient 3.1 mmHg PV Mean Velocity 61.0 cm/s PV Mean Gradient 2.0 mmHg PV Velocity Time Integral 15.0 cm
== END 2016-06-19 17:20 | disposition home health service (06) | DRG 291 ==
LOC: ERH 20:25 → ERHI 23:43 → ENPENDDIS 23:43 → 1NO 23:43
PROVIDERS: Emergency Medicine; Student in an Organized Health Care Education/Training Program; ADMIT Student in an Organized Health Care Education/Training Program
PROC: 5A09457 Assistance with Respiratory Ventilation, 24-96 Consecutive Hours, Continuous Positive Airway Pressure (ICD-10-PCS; principal; 2016-06-18)
DX: I13.0 Hypertensive heart and chronic kidney disease with heart failure and stage 1 through stage 4 chronic kidney disease, or unspecified chronic kidney disease (principal); J96.01 Acute respiratory failure with hypoxia; J18.9 Pneumonia, unspecified organism; I48.2 Chronic atrial fibrillation; Z79.01 Long term (current) use of anticoagulants; N18.3 Chronic kidney disease, stage 3 (moderate); I50.33 Acute on chronic diastolic (congestive) heart failure; Z68.42 Body mass index [BMI] 45.0-49.9, adult; E66.01 Morbid (severe) obesity due to excess calories; I25.10 Atherosclerotic heart disease of native coronary artery without angina pectoris; G47.33 Obstructive sleep apnea (adult) (pediatric); Z95.0 Presence of cardiac pacemaker; Z86.73 Personal history of transient ischemic attack (TIA), and cerebral infarction without residual deficits; E78.5 Hyperlipidemia, unspecified; M10.9 Gout, unspecified; F32.9 Major depressive disorder, single episode, unspecified
CPT/HCPCS: 1NSP; ERO; 36415; 82436; 87040; 93005; 93010; 93306; 96374; J0456; J0696; J1940; J7060; Q9957

== ENCOUNTER 2016-10-12 11:42 | Inpatient (IN) | payer OTHER ==
[~2016-10-12] VITALS: Ht 190.5 cm; Wt 168.7 kg
[~2016-10-12 11:42] MED LIST changes: +COUMADIN6 M1 PO; +ESCITALOPRAM OX10 MG PO; +LASIX20 M1 PO; +LASIX80 M1 PO; +REQUIP0.25 MG PO; +VITAMIN B-121000 MC3 PO; +VITAMIN C500 M8 PO
--- NOTE | 2016-10-12 12:06 | ED GENERAL ADULT ---
History of Present Illness General Chief Complaint: General Adult Stated Complaint: SENT IN FOR ?KIDNEY FAILURE Source: patient, old records Exam Limitations: no limitations Vital Signs & Intake/Output Vital Signs & Intake/Output Vital Signs Date Time Temp Pulse Resp B/P B/P Pulse O2 O2 Flow FiO2 Mean Ox Delivery Rate 10/12 1443 98.0 78 20 132/84 92 Nasal 2.0L Cannula 10/12 1419 95 Nasal 2.0L Cannula 10/12 1329 97.8 68 20 124/97 96 Room Air 10/12 1200 97.2 60 18 150/98 94 Room Air Allergies Coded Allergies: Phenothiazines (Mild, OCULOGYRIC 11/15/15) Iodinated Contrast Media - Oral and (IODINATED CONTRAST MEDIA - IV DYE) ( URTICARIA 11/15/15) Uncoded Allergies: SOMATADINE (Intermediate, DOSE RELATED- GETS HIVES 02/08/12) Triage Nurses Notes Reviewed? yes Onset: Gradual Duration: getting worse Timing: recent history Severity: severe Severity Numbers: 7 HPI: Patient is a 71-year-old male with past medical history atrial fibrillation on warfarin, second degree AV block with pacemaker, CHF, TIA, hypertension, CAD, obstructive sleep apnea on CPAP, gout, CKD states 3, psoriasis who presents emergency room for concerns of fatigue, shortness of breath and bilateral leg edema 3 weeks. Patient was evaluated by primary care doctor on Wednesday 3 days ago he was evaluated by primary care doctor on Wednesday and which the Lasix was discontinued in which THIS was discussed BETWEEN Zurdo Schilling MD and Dr. Foley WELL HIS INR was checked and was advised to begin bedrest elevation of legs and compression stockings for his leg swelling. Patient had a reevaluation today by primary care doctor and which he was advised to present to emergency room for concerns of acute on chronic renal failure. Patient states that he's had approximately 2000 mL of urine output today Patient denies any fevers chest pain arm pain jaw pain nausea vomiting hemoptysis (DEIDRA IQBAL) Reconcile Medications Allopurinol 300 MG TABLET 1 TAB PO DAILY GOUT (Reported) I TAB IN AM HALF TAB AT BED TIME Allopurinol (Zyloprim) 300 MG TABLET 150 MG PO AT BEDTIME GOUT Cyanocobalamin (Vitamin B-12) 1,000 MCG TABLET 1 TAB PO DAILY SUPPLEMENT ( Reported) Escitalopram Oxalate 10 MG TABLET 1 TAB PO DAILY MENTAL HEALTH (Reported) Furosemide (Lasix) 80 MG TABLET 1 TAB PO DAILY DIURETIC (Reported) Furosemide (Lasix) 40 MG TABLET 1 TAB PO QPM SWELLING (Reported) Potassium Chloride 20 MEQ TAB.ER.PRT 2 TAB PO Q48 SUPPLEMENT (Reported) Potassium Chloride 20 MEQ TAB.ER.PRT 1 TAB PO Q48 SUPPLEMENT (Reported) Pravastatin Sodium (Pravachol) 40 MG TABLET 1 TAB PO DAILY CHOLESTEROL ( Reported) Ropinirole Hydrochloride (Requip) 0.25 MG TABLET 1 TAB PO BID RLS (Reported) Warfarin Sodium (Coumadin) 4 MG TABLET 1 TAB PO SuMoWeThSa BLOOD THINNER ( Reported) Warfarin Sodium (Coumadin) 6 MG TABLET 1 TAB PO TuFr BLOOD THINNER (Reported) (CURTIS BIANCHI,ABRAHAM) Past History Travel History Traveled to [place] past 21 day No Medical History Any Pertinent Medical History? see below for history Neurological: TIA EENT: NONE Cardiovascular: AFIB, CAD, hypertension, permanent pacemaker Respiratory: OBS SLEEP apnea, USES CPAP Gastrointestinal: hiatal hernia Hepatic: NONE Renal: chronic kidney disease, nephrolithiasis Musculoskeletal: gout, osteoarthritis Psychiatric: depression Endocrine: PRE-DIABETIC AIC Blood Disorders: NONE Cancer(s): NONE LABORATORY CHEMIST/Reproductive: NONE Other Medical Hx: cat scratch fever, psoriasis History of MRSA: No History of VRE: No History of CDIFF: No Influenza Vaccine: 04/14/16 Surgical History Surgical History: appendectomy, cholecystectomy, colon resection (for adhesions/ ischemic bowel), ileo jejeunal bypass with subsequent reversal bypass surgery bowel resection for adhesions with bowel ischemia incisional hernia repair tonsillectomy incisional hernia repair Psychosocial History Who do you live with Family Services at Home None What is your primary language [place] Family History Family History, If Any: MOTHER Relation not specified for: FH: diabetes mellitus Hx Contributory? No (DEIDRA IQBAL) Review of Systems Review of Systems Constitutional: Reports: see HPI. EENTM: Reports: no symptoms. Respiratory: Reports: see HPI, short of breath. Cardiovascular: Reports: see HPI, peripheral edema. Denies: chest pain. GI: Reports: no symptoms. Genitourinary: Reports: no symptoms. Musculoskeletal: Reports: no symptoms. Skin: Reports: no symptoms. Neurological/Psychological: Reports: no symptoms. Hematologic/Endocrine: Reports: no symptoms. Immunologic/Allergic: Reports: no symptoms. All Other Systems: Reviewed and Negative (DEIDRA IQBAL) Physical Exam Physical Exam General Appearance: no apparent distress, alert, comfortable, obese Comments: HEENT: Normal EENT exam, Neck: Supple, no lymphadenopathy, normal range of motion without pain or tenderness Back: Nontender, no CVA tenderness. Cardiovascular: Regular rate and rhythms no murmurs rubs or gallops, normal JVP Respiratory: Chest nontender. No respiratory distress.breath sounds clear to auscultation bilaterally Abdomen: Soft, nontender nondistended, no appreciable organomegaly. Normal bowel sounds. No ascites Extremity: Bilateral lower extremity +2 pitting edema, no calf tenderness to palpation, normal and equal pulses. Neuro: Alert oriented x3, motor sensory normal, Skin: No appreciable rash on exposed skin, skin is warm and dry. Psych: Mood and affect is normal, memory and judgment is normal. Core Measures ACS in differential dx? No CVA/TIA Diagnosis: No Severe Sepsis Present: No Septic Shock Present: No (DEIDRA IQBAL) Progress Differential Diagnoses I considered the following diagnoses in my evaluation of the patient: [ROXIE, CHF, P pneumonia, sepsis, electrolyte abnormality, renal artery stenosis,, ] Plan of Care: Orders Procedure Date/time Status PROTHROMBIN TIME 10/13 0600 Active MAGNESIUM 10/13 0600 Active CBC WITHOUT DIFFERENTIAL 10/13 0600 Active BASIC ELECTROLYTES PLUS BUN&CR 10/13 0600 Active Heart Healthy Diet 10/12 D Active Saline Lock 10/12 1601 Active Pathway - chart 10/12 1601 Active House Staff 10/12 1601 Active Patient Data 10/12 1521 Active Code Status 10/12 1508 Active Admit to inpatient 10/12 1507 Active Intake & Output 10/12 1353 Active URINE LYTES, SPOT 10/12 1340 Complete GAMMA GLUTAMYL TRANSFERASE 10/12 1332 Complete DIRECT BILIRUBIN 10/12 1332 Complete PARTIAL THROMBOPLASTIN TIME 10/12 1318 Complete PROTHROMBIN TIME 10/12 1318 Complete EKG 10/12 1255 Active URINALYSIS 10/12 1254 Complete TROPONIN LEVEL 10/12 1254 Complete MAGNESIUM 10/12 1254 Complete LACTIC ACID 10/12 1254 Complete COMPREHENSIVE METABOLIC PANEL 10/12 1254 Complete CBC WITHOUT DIFFERENTIAL 10/12 1254 Complete B-TYPE NATRIURETIC PEP (BNP) 10/12 1254 Complete Lab Add-on Test 10/12 UNK Active VTE Mechanical Prophylaxis 10/12 UNK Active Current Medications Sig/Maria Dolores Start time Last Medication Dose Stop Time Status Admin Cyanocobalamin 1,000 MCG DAILY 10/13 999 AC (Vitamin B12) Escitalopram Oxalate 10 MG DAILY 10/13 999 AC (Lexapro) Pravastatin Sodium 40 MG DAILY 10/13 1000 AC (Pravachol) Allopurinol 100 MG Q12 10/12 2199 AC 10/12 (Zyloprim) 214 Ropinirole HCl 0.25 MG BID 10/12 2199 AC 10/12 (Requip 0.5MG) 2148 Sodium Chloride 1,000 ML Q10H 10/12 1615 AC 10/12 (Normal Saline 0.9%) 10/13 1214 1634 Acetaminophen 1,000 MG Q6P PRN 10/12 1600 AC (Ofirmev) Hydromorphone HCl 0.5 MG Q4P PRN 10/12 1600 AC (Dilaudid) Laboratory Tests 10/12/16 1554: Lactic Acid Cancelled 10/12/16 1340: Urinalysis LIGHT H, Urine Color YEL, Urine Clarity CLEAR, Urine pH 6.0, Ur Specific [place] 1.020, Urine Protein 100 H, Urine Ketones NEG, Urine Nitrite NEG, Urine Bilirubin NEG, Urine Urobilinogen 0.2, Ur Leukocyte Esterase NEG, Ur Microscopic SEDIMENT EXAMINED, Urine RBC 10-15 H, Urine WBC RARE, Ur Epithelial Cells RARE, Urine Bacteria FEW H, Hyaline Casts RARE H, Urine Hemoglobin MOD H, Urine Glucose NEG 10/12/16 1340: Ur Random Creatinine 64.4, Ur Random Sodium 38, Ur Random Potassium 21.1, Fraction Sodium Excret 1.4 H 10/12/16 1332: Anion Gap 11, Estimated GFR 19 L, BUN/Creatinine Ratio 18.2, Glucose 98, Lactic Acid 0.9, Calcium 8.4, Magnesium 2.0, Total Bilirubin 1.7 H, Direct Bilirubin 0.6 H, GGT 33, AST 22, ALT 24, Alkaline Phosphatase 144 H, Troponin I 0.04, Ubg-T-Oobdahbrsvv Pept 6780 H, Total Protein 6.1 L, Albumin 3.4 L, Globulin 2.7, Albumin/Globulin Ratio 1.3, PT 23.9 H, INR 2.29 H, APTT 36, CBC w Diff NO MAN DIFF REQ, RBC 3.50 L, MCV 89.1, MCH 28.9, RDW 19.4 H, MPV 9.9, Gran % 84.5 H, Lymphocytes % 10.4 L, Monocytes % 3.4, Eosinophils % 1.3, Basophils % 0.4, Absolute Granulocytes 4.8, Absolute Lymphocytes 0.6 L, Absolute Monocytes 0.2, Absolute Eosinophils 0.1, Absolute Basophils 0, PUBS MCHC 32.5 L Patient currently is in no apparent distress at this time there is no overt concerns of CHF however patient does have concerns of acute on chronic renal failure discuss disposition and plan of admission with family members patient and they agree and has no questions (DEIDRA IQBAL) Diagnostic Imaging: Viewed by Me: Radiology Read. Radiology Impression: SEE COMMENTS Initial ED EKG: VENTRICULAR PACED RHYTHM 69 BPM Comments: PATIENT: LOUANN WARD PRESENT AGE: 71 PATIENT ACCOUNT NO: [id number] : 45 LOCATION: [facility] ORDERING PHYSICIAN: DEIDRA TOM SERVICE DATE: 10/12/16 EXAM TYPE: RAD - XRY-PORTABLE CHEST XRAY EXAMINATION: XR PORTABLE CHEST CLINICAL INFORMATION: Shortness of breath. COMPARISON: None TECHNIQUE: Portable AP 70 degree upright view of the chest was obtained. Exam is limited due to patient body habitus and technical factors. FINDINGS: Lung volumes appear somewhat diminished. Is a left-sided prepectoral pacer is identified with dual leads partially visualized, the tip of the ventricular lead is not seen. There is no evidence of significant appearing atelectasis, congestion, or definitive infiltrate. No evidence of a pneumothorax, however diagnosis is not completely excluded. No obvious osseous lesions are seen. IMPRESSION: Limited examination, low lung volumes, no definite acute intrathoracic process. (DEIDRA IQBAL) Departure Departure Disposition: STILL A PATIENT Condition: Stable Clinical Impression Primary Impression: Acute on chronic renal failure Referrals: JASSON BIANCHI,ZURDO Mckeon (PCP/Family) Departure Forms: Customer Survey General Discharge Information Admission Note Spoke With: FELA LAIRD MD Documentation of Exam: Documentation of any treatments & extenuating circumstances including Concerns Regarding Discharge (functional status, medication knowledge or non-compliance, living conditions, etc.) that warrant an admission rather than observation: [ DISCUSSED disposition and plan with Dr. LAIRD who agrees in which patient requires nephrology consultation and repeat labs and pharmacological reconciliation of his medications in which she has failed outpatient treatment ] (DEIDRA IQBAL) PA/LUMBER BUYER Co-Sign Statement Statement: ED Attending supervision documentation- [X] I saw and evaluated the patient. I have also reviewed all the pertinent lab results and diagnostic results. I agree with the findings and the plan of care as documented in the PA's/LUMBER BUYER's documentation. [X] I have reviewed the ED Record and agree with the PA's/LUMBER BUYER's documentation. [] Additions or exceptions (if any) to the PAs/LUMBER BUYER's note and plan are summarized below: [] (CURTIS BIANCHI,ABRAHAM) Critical Care Note Critical Care Note Critical Care Time: non-applicable (DEIDRA IQBAL)
--- NOTE | 2016-10-12 12:06 | NUR ---
PT SENT TO ER BY HIS PMD FOR ACUTE CHRONIC RENAL FAILURE. PT HAD OUT PT BLOOD WORK WEDNESDAY AND HE WAS CALLED [facility] AND TOLD TO COME TO ER. PT COMPLAINS OF FEELING ACHEY ALL OVER, HAS A HISTORY OF KIDNEY STONES. STATES THAT HE HAS DIFFICULT TIME URINATING ,BUT STATES THAT URINE IS YELLOW. TAKES LASIS BUT WAS TOLD TO STOP IT ON WEDNESDAYCREATNINE 2.5 BUN 72. ALSO STATES THAT HE HAS NAUSEA AND DRY HEAVES THAT STARTED THIS AM.
--- NOTE | 2016-10-12 12:11 | NUR ---
PT TO ER ROOM 1 PA STUDENT AT BEDSIDE FOR EVAL
--- NOTE | 2016-10-12 12:56 | NUR ---
XRAY AT BEDSIDE
--- NOTE | 2016-10-12 13:33 | RADIOLOGY REPORT ---
EXAMINATION: XR PORTABLE CHEST CLINICAL INFORMATION: Shortness of breath. COMPARISON: None TECHNIQUE: Portable AP 70 degree upright view of the chest was obtained. Exam is limited due to patient body habitus and technical factors. FINDINGS: Lung volumes appear somewhat diminished. Is a left-sided prepectoral pacer is identified with dual leads partially visualized, the tip of the ventricular lead is not seen. There is no evidence of significant appearing atelectasis, congestion, or definitive infiltrate. No evidence of a pneumothorax, however diagnosis is not completely excluded. No obvious osseous lesions are seen. IMPRESSION: Limited examination, low lung volumes, no definite acute intrathoracic process.
[2016-10-12] MEDS ORDERED: POTASSIUM CHLO20 ME2 PO (13:39)
[2016-10-12 13:49] LABS: ABSOLUTE BASOPHIL COUNT 0 /CUMM (0.0-0.2); ABSOLUTE EOSINOPHIL COUNT 0.1 /CUMM (0.0-0.7); ABSOLUTE GRANULOCYTE CT 4.8 /CUMM (1.4-6.5); ABSOLUTE LYMPH COUNT 0.6 /CUMM (1.2-3.4); ABSOLUTE MONOCYTE COUNT 0.2 /CUMM (0.10-0.60); BASOPHIL % 0.4 % (0.0-2.0); EOSINOPHIL % 1.3 % (0-5); HEMATOCRIT 31.2 % (42-52); MEAN CORPUSCULAR HGB 28.9 PG (27.0-31.0); MEAN CORPUSCULAR HGB CONC 32.5 G/DL (33.0-37.0); MEAN CORPUSCULAR VOLUME 89.1 FL (80.0-94.0); MEAN PLATELET VOLUME 9.9 FL (7.4-10.4); PLATELET COUNT 144 /CUMM (130-400); RBC DISTRIBUTION WIDTH 19.4 % (11.5-14.5); WHITE BLOOD CELL COUNT 5.7 /CUMM (4.8-10.8)
[2016-10-12 14:00] LABS: PT 23.9 SEC (9.4-12.5); PTT 36 SEC (25-37)
[2016-10-12 14:12] LABS: GRANULOCYTE % 84.5 % (42.2-75.2)
--- NOTE | 2016-10-12 14:13 | NUR ---
PT TO US VIA STRETCHER AT THIS TIME
--- NOTE | 2016-10-12 14:41 | NUR ---
PT BACK FROM ULTRASOUND
--- NOTE | 2016-10-12 15:20 | ULTRASOUND REPORT ---
EXAMINATION: US RETROPERITONEAL COMPLETE (RENAL) CLINICAL INFORMATION: Acute kidney injury. COMPARISON: 01/27/2016 TECHNIQUE: Real-time imaging of the kidneys and bladder. FINDINGS: Visualization is overall limited due to patient body habitus. RIGHT KIDNEY: 12.1 x 6.1 x 5.6 cm (SAG x AP x TRV). The kidney is normal in size, contour, and echogenicity. Renal cortical thickness is normal. There is a 1.1 x 0.9 x 1.1 cm upper pole cyst. No calculi are identified. No hydronephrosis. LEFT KIDNEY: 13.2 x 7.2 x 5.9 cm (SAG x AP x TRV). The kidney is normal in size, contour, and echogenicity. Renal cortical thickness is normal. No calculi or focal parenchymal lesions. No hydronephrosis. BLADDER: Partially distended, with a volume of 85 mL. Bilateral ureteral jets are not demonstrated. IMPRESSION: No hydronephrosis bilaterally. Small right upper pole renal cyst.
--- NOTE | 2016-10-12 15:25 | NUR ---
IV EST. PT AWARE HE WILL BE ADMITTED TO THE HOSPITAL
--- NOTE | 2016-10-12 16:03 | History & Physical ---
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 Patient reports over the past two weeks he has noticed worsening of his lower extremity swelling with mild associated shortness of breath. He denies any new orthopnea. Patient initally had a scheduled appointment with his PCP Dr. Schilling on 10/09/16 for which he had blood work on 10/05/16 in anticipation of this. Blood work on this day reportedly demonstrated elevated creatinine, which was repeated on his appointment on 10/09/16 and further demonstrated worsened renal function. He was instructed to hold his daily lasix (120 mg) until he was to be reevaluated on today (10/12/16). He was sent to the [place] [facility] for further evaluation after Additionally he denies any blurred/double vision, lightheadedness/dizziness, headache, fever, chills, chest pain, palpitations, vomiting, diarrhea. PMHx- AFib on Coumadin, 2nd-degree AVB s/p PM, CHF, ANTONELLA on CPAP, TIA, Gout, HTN, CKD, CAD, Psoriasis Allergies/Medications Allergies: Coded Allergies: Phenothiazines (Mild, OCULOGYRIC 11/15/15) Iodinated Contrast Media - Oral and (IODINATED CONTRAST MEDIA - IV DYE) ( URTICARIA 11/15/15) Uncoded Allergies: SOMATADINE (Intermediate, DOSE RELATED- GETS HIVES 02/08/12) Home Med list Allopurinol 300 MG TABLET 1 TAB PO DAILY GOUT (Reported) I TAB IN AM HALF TAB AT BED TIME Allopurinol (Zyloprim) 300 MG TABLET 150 MG PO AT BEDTIME GOUT Cyanocobalamin (Vitamin B-12) 1,000 MCG TABLET 1 TAB PO DAILY SUPPLEMENT ( Reported) Escitalopram Oxalate 10 MG TABLET 1 TAB PO DAILY MENTAL HEALTH (Reported) Furosemide (Lasix) 80 MG TABLET 1 TAB PO DAILY DIURETIC (Reported) Furosemide (Lasix) 40 MG TABLET 1 TAB PO QPM SWELLING (Reported) Potassium Chloride 20 MEQ TAB.ER.PRT 2 TAB PO Q48 SUPPLEMENT (Reported) Potassium Chloride 20 MEQ TAB.ER.PRT 1 TAB PO Q48 SUPPLEMENT (Reported) Pravastatin Sodium (Pravachol) 40 MG TABLET 1 TAB PO DAILY CHOLESTEROL ( Reported) Ropinirole Hydrochloride (Requip) 0.25 MG TABLET 1 TAB PO BID RLS (Reported) Warfarin Sodium (Coumadin) 4 MG TABLET 1 TAB PO SuMoWeThSa BLOOD THINNER ( Reported) Warfarin Sodium (Coumadin) 6 MG TABLET 1 TAB PO TuFr BLOOD THINNER (Reported) Past History Travel History Traveled to [place] past 21 day No Medical History Neurological: TIA EENT: NONE Cardiovascular: AFIB, CAD, hypertension, permanent pacemaker Respiratory: OBS SLEEP apnea, USES CPAP Gastrointestinal: hiatal hernia Hepatic: NONE Renal: chronic kidney disease, nephrolithiasis Musculoskeletal: gout, osteoarthritis Psychiatric: depression Endocrine: PRE-DIABETIC AIC Blood Disorders: NONE Cancer(s): NONE DENTAL AMALGAM PROCESSOR/Reproductive: NONE Other Medical Hx: cat scratch fever, psoriasis History of MRSA: No History of VRE: No History of CDIFF: No Influenza Vaccine: 04/14/16 Surgical History Surgical History: appendectomy, cholecystectomy, colon resection (for adhesions/ ischemic bowel), ileo jejeunal bypass with subsequent reversal bypass surgery bowel resection for adhesions with bowel ischemia incisional hernia repair tonsillectomy incisional hernia repair Past Family/Social History Family History Relations & Conditions if any MOTHER Relation not specified for: FH: diabetes mellitus Psychosocial History Where do you live? Home Services at Home: None ETOH Use: denies use Illicit Drug Use: denies illicit drug use Functional Ability ADLs Independent: dressing, eating, toileting, bathing. Ambulation: independent IADLs Independent: shopping, housework, finances, food prep, telephone, transportation , medication admin. Review of Systems Review of Systems Constitutional: Reports: see HPI. Exam & Diagnostic Data Last 24 Hrs of Vital Signs/I&O Vital Signs Date Time Temp Pulse Resp B/P B/P Pulse O2 O2 Flow FiO2 Mean Ox Delivery Rate 10/12 1443 98.0 78 20 132/84 92 Nasal 2.0L Cannula 10/12 1419 95 Nasal 2.0L Cannula 10/12 1329 97.8 68 20 124/97 96 Room Air 10/12 1200 97.2 60 18 150/98 94 Room Air Intake & Output 10/12 1600 10/12 0800 05 0000 Intake Total Output Total 250 Balance -250 Output, Urine 250 Patient 168.736 kg Weight Physical Exam General Appearance Alert, Oriented X3, Cooperative, No Acute Distress HEENT Atraumatic, PERRLA, EOMI, Mucous Membr. moist/pink Neck Supple, No JVD Cardiovascular Normal S1, Normal S2, No Murmurs Lungs Clear to Auscultation, Normal Air Movement Abdomen Normal Bowel Sounds, No Tenderness, No Hepatospenomegaly, No Masses, Tense, nontender, distended, bowel sounds intact Neurological Normal Speech, Normal Tone, Cranial Nerves 3-12 NL Extremities No Clubbing, No Cyanosis, Normal Pulses, 2+ bilateral nonpitting edema Vascular Normal Pulses, Pulses Symmetrical Last 24 Hrs of Labs/Kyle: Laboratory Tests 10/12/16 1554: Lactic Acid Cancelled 10/12/16 1340: Urinalysis LIGHT H, Urine Color YEL, Urine Clarity CLEAR, Urine pH 6.0, Ur Specific [place] 1.020, Urine Protein 100 H, Urine Ketones NEG, Urine Nitrite NEG, Urine Bilirubin NEG, Urine Urobilinogen 0.2, Ur Leukocyte Esterase NEG, Ur Microscopic SEDIMENT EXAMINED, Urine RBC 10-15 H, Urine WBC RARE, Ur Epithelial Cells RARE, Urine Bacteria FEW H, Hyaline Casts RARE H, Urine Hemoglobin MOD H, Urine Glucose NEG 10/12/16 1332: Anion Gap 11, Estimated GFR 19 L, BUN/Creatinine Ratio 18.2, Glucose 98, Lactic Acid 0.9, Calcium 8.4, Magnesium 2.0, Total Bilirubin 1.7 H, Direct Bilirubin 0.6 H, GGT 33, AST 22, ALT 24, Alkaline Phosphatase 144 H, Troponin I 0.04, Wyy-S-Cezkdcwtfyg Pept 6780 H, Total Protein 6.1 L, Albumin 3.4 L, Globulin 2.7, Albumin/Globulin Ratio 1.3, PT 23.9 H, INR 2.29 H, APTT 36, CBC w Diff NO MAN DIFF REQ, RBC 3.50 L, MCV 89.1, MCH 28.9, RDW 19.4 H, MPV 9.9, Gran % 84.5 H, Lymphocytes % 10.4 L, Monocytes % 3.4, Eosinophils % 1.3, Basophils % 0.4, Absolute Granulocytes 4.8, Absolute Lymphocytes 0.6 L, Absolute Monocytes 0.2, Absolute Eosinophils 0.1, Absolute Basophils 0, PUBS MCHC 32.5 L Diagnostic Data Other Results SERVICE DATE: 10/12/16 EXAM TYPE: RAD - XRY-PORTABLE CHEST XRAY IMPRESSION: Limited examination, low lung volumes, no definite acute intrathoracic process. SERVICE DATE: 10/12/16 EXAM TYPE: US - US-RENAL/KIDNEY IMPRESSION: No hydronephrosis bilaterally. Small right upper pole renal cyst. Assessment/Plan Assessment: 71 year old man with multiple medical problems seen for evaluation of lower extremity swelling and mild associated shortness of breath. ED Course -Vitals: Temp 97.2-98.0, HR 60-68, BP 124-150/84-98, O2 92-96% on 2.0L -Significant Labs: WBC 5.7, Hgb/Hct 10.1/31.2, Plt 144, BUN/Cr 60/3.3, Lactic Acid 0.9, T.Bili 1.7, AST/ALT 22/24, ALK 144, Troponin 0.04, BNP 6790 -Studies: CXR - limited exam with no definite acute intrathoracic process, Renal US unremarkable Lower Extremity Swelling / ROXIE on CKD / History of CHF Patient with an extensive cardiovascular history including CHF followed by Dr. Howard complaining of lower extremity swelling and shortness of breath. CXR was limited, but did not have any clear evidence of vascular pulmonary congestion. Renal US was unremarkable. No physical evidence of acute CHF other than lower extremity swelling. BNP 6790. -General Medicine -Avoid Nephrotoxic agents such as NSAIDs -NS @ 100mL/hr -Hold Lasix -Cardiology consult -Nephrology consult -F/U Urine lytes Obstructive Sleep Apnea-nocturnal CPAP Restless Leg Syndrome-Ropinirole 0.25mg PO BID Hyperlipidemia-Pravastatin 40mg PO Daily Gout-Allopurinol 100mg PO Q12H Depression-Lexapro 10mg PO Daily Pain Plan-Acetaminophen/Dilaudid Diet-Heart Healthy Diet DVT PPx-on anticoagulation Code Status-FULL CODE As Ranked By This Provider Problem List: 1. Acute on chronic renal failure Core Measures/Miscellaneous Acute Coronary Syndrome ACS Diagnosis: No Cerebrovascular Accident CVA/TIA Diagnosis: No Congestive Heart Failure CHF Diagnosis: No Venous Thromboembolism VTE Risk Factors: Acute medical illness, Age > [address] [facility] prophylaxis d/t: LE Edema No VTE Pharm Prophylaxis d/t: No contraindications VTE Diagnosis: No VTE Type: NONE VTE Confirmed by (Test): NONE Severe Sepsis Severe Sepsis Present: No Septic Shock Septic Shock Present: No Miscellaneous Documentation Attending Case Discussed With: FELA LAIRD MD Primary Care Physician: JACKY SCHILLING MD Patient sees these Specialists Dr. Lee Foley Level of Patient Care: General Medicine Consults Needed: 1 Consulting Specialty: Cardiology Consults Needed: 2 Consulting Specialty: Nephrology AFRICA BIANCHI,HALEY 10/12/16 1610: Resident Review Statement Resident Statement: examined this patient, discussed with international trade teacher, agreed with international trade teacher, discussed with family, reviewed EMR data (avail), discussed with nursing , discussed with case mgmt, reviewed images, amended to note Other Findings: Fortunato 71-year-old man with medical history of atrial fibrillation (on Coumadin ), second-degree AV block with permanent pacemaker with, heart failure with reduced ejection fraction, heart failure with preserved ejection fraction, TIA hypertension coronary artery disease obstructive sleep apnea on CPAP down stage III and renal disease, psoriasis. Presents with chief complaint of fatigue shortness of breath bilateral leg edema 3 weeks. Seen PCP 3 days ago, Lasix discontinued by primary medical doctor. Presently being evaluated for acute on chronic kidney failure, and lower extremity edema. Suspect diuretic induced renal failure in setting of CKD. Additionally, given his CrCl he is on high doses of allopurinol. - Problems - ROXIE on CKD Elevated Tbili, ALP Normocytic anemia Afib on coumadin HFpEF HTN CAD Gout - Plan - NS @ 100cc/hr x 1L Check fractional excretuion of urea Reduce Allopurinol to 100mg bid Nephrology consult Check GGT, frx Tbili Na+&K+ restricted diet Continue coumadin Hold Lasix Cardiology consult DVT ppx with coumadin FULL FELA LAIRD MD 10/12/16 2322: Attending MD Review Statement Attending Statement Attending MD Statement: examined this patient, discuss w/resident/PA/HOOD FITTER, agreed w/resident/PA/HOOD FITTER, reviewed EMR data (avail) Attending Assessment/Plan: 71M PMH trial Fibrillation on coumadin, 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 Patient has no complaints, is not short of breath, normal lung exa and CXR, mild LE edema. Labs otherwise unremarkable. Plan - Admit to general medicine - Fluid challenge and recheckk creatinine - Re-assess tomorrow and possibly start Lasix - Nephrology consult - Monitor renal function and electrolytes - Continue home medications - DVT PPx
[2016-10-12] MEDS ORDERED: LASIX40 M1 PO (16:21)
--- NOTE | 2016-10-12 16:25 | NUR ---
HOUSESTAFF AT BEDSIDE.
--- NOTE | 2016-10-12 17:00 | NUR ---
PT UP TO COMMODE WITH NO ASSISTANCE.
--- NOTE | 2016-10-12 17:25 | NUR ---
FAMILY AT BEDSIDE.
--- NOTE | 2016-10-12 18:56 | NUR ---
PT CONTINUES TO REST ON STRETCHER.
--- NOTE | 2016-10-12 20:12 | NUR ---
PT ASKED FOR ANOTHER BLANKET. BLANKET GIVEN. PT RESTING ON BED.
--- NOTE | 2016-10-12 21:32 | NUR ---
PHARMACY CALLED FOR MEDICATIONS.
--- NOTE | 2016-10-12 21:49 | NUR ---
PT MEDIATED PER EMAR.
--- NOTE | 2016-10-12 23:00 | NUR ---
PT TRANSFERRED TO HOSPITAL BED.
--- NOTE | 2016-10-12 23:25 | Admission Certification ---
Admission Certification Certification Statement - As attending physician, I certify that at the time of - admission, based on clinical presentation, severity of - symptoms, need for further diagnostic testing and - therapeutic interventions, and risk of adverse outcomes - without in-hospital treatment, in my clinical assessment, - this patient requires an acute hospital stay for a minimum - of two nights or longer. I have also considered psychsocial - factors such as support system, advanced age, financial - issues, cognitive issues, and failed out-patient treatments, - past re-admission history, safety of patient, and lack of - compliance as applicable. Specific rationale supporting this admission is: ROXIE with progressively worsening renal function
--- NOTE | 2016-10-13 00:13 | NUR ---
PT CONTINUES TO REST COMFORTABLY ON BED. NORMAL CHEST RISE AND FALL NOTED. WILL CONTINUE TO MONITOR.
--- NOTE | 2016-10-13 04:34 | NUR ---
PT UP TO COMMODE.
[2016-10-13 05:51] LABS: ABSOLUTE BASOPHIL COUNT 0 /CUMM (0.0-0.2); ABSOLUTE EOSINOPHIL COUNT 0.1 /CUMM (0.0-0.7); ABSOLUTE GRANULOCYTE CT 4.3 /CUMM (1.4-6.5); ABSOLUTE LYMPH COUNT 0.7 /CUMM (1.2-3.4); ABSOLUTE MONOCYTE COUNT 0.3 /CUMM (0.10-0.60); BASOPHIL % 0.5 % (0.0-2.0); EOSINOPHIL % 2.3 % (0-5); GRANULOCYTE % 78.3 % (42.2-75.2); MEAN CORPUSCULAR HGB 28.5 PG (27.0-31.0); MEAN CORPUSCULAR HGB CONC 31.5 G/DL (33.0-37.0); MEAN CORPUSCULAR VOLUME 90.4 FL (80.0-94.0); MEAN PLATELET VOLUME 9.5 FL (7.4-10.4); PLATELET COUNT 138 /CUMM (130-400); RBC DISTRIBUTION WIDTH 19.5 % (11.5-14.5); RED BLOOD CELL CT 3.43 /CUMM (4.70-6.10); WHITE BLOOD CELL COUNT 5.5 /CUMM (4.8-10.8)
[2016-10-13 05:57] LABS: PT 24.2 SEC (9.4-12.5)
--- NOTE | 2016-10-13 06:34 | NUR ---
PT AWAKE. REQUESTED WATER. WATER GIVEN.
[2016-10-13 06:36] VITALS: BP 126/74
--- NOTE | 2016-10-13 06:51 | PN- Housestaff ---
See Addendum Subjective Follow-up For: ROXIE on CKD CHF Subjective: I saw and examined the patient today morning He is lying in the bed. He reports feeling shortness of breath with daily activities for the past 1month which was followed by increasing his lasix lately to 120mg from 80mg. Overnight he remained well, offers no concerns currenlty. Review of Systems Constitutional: Reports: see HPI. Cardiovascular: Reports: edema, peripheral edema. Respiratory: Reports: cough, short of breath. Comments: ROS negative except the above. Objective Last 24 Hrs of Vital Signs/I&O Vital Signs Date Time Temp Pulse Resp B/P B/P Pulse O2 O2 Flow FiO2 Mean Ox Delivery Rate 10/13 0536 98.0 65 18 126/74 94 Nasal 2.5L Cannula 10/13 0600 98.0 65 18 126/74 94 Nasal 2.5L Cannula 10/12 1856 80 22 138/82 95 Nasal 2.5L Cannula 10/12 1443 98.0 78 20 132/84 92 Nasal 2.0L Cannula 10/12 1419 95 Nasal 2.0L Cannula 10/12 1329 97.8 68 20 124/97 96 Room Air 10/12 1200 97.2 60 18 150/98 94 Room Air Intake & Output 10/13 0800 05 0000 10/12 1600 Intake Total 240 Output Total 500 1300 250 Balance -500 -1060 -250 Intake, Oral 240 Number 1 Bowel Movements Output, Urine 500 1300 250 Patient 168.736 kg 168.736 kg Weight Physical Exam General Appearance: Alert, Oriented X3, Cooperative, No Acute Distress Skin: No Rashes HEENT: Atraumatic Neck: Supple Lungs: Clear to Auscultation, Normal Air Movement, mild decreased breath sounds at bases Abdomen: Normal Bowel Sounds, Soft, No Tenderness Neurological: Normal Tone, Sensation Intact Extremities: No Clubbing, No Cyanosis, 4+ edema present Vascular: Normal Pulses, Pulses Symmetrical Current Medications: Current Medications Sig/Maria Dolores Start time Last Medication Dose Route Stop Time Status Admin Acetaminophen 1,000 MG Q6P PRN 10/12 1600 AC IV Allopurinol 100 MG Q12 10/12 2200 AC 05/08 PO 2148 Cyanocobalamin 1,000 MCG DAILY 10/13 1000 AC PO Escitalopram Oxalate 10 MG DAILY 10/13 1000 AC PO Hydromorphone HCl 0.5 MG Q4P PRN 10/12 1600 AC IV Pravastatin Sodium 40 MG DAILY 10/13 1000 AC PO Ropinirole HCl 0.25 MG BID 10/12 2200 AC 10/12 PO 2148 Sodium Chloride 1,000 ML Q10H 10/12 1615 AC 10/13 IV 10/13 1214 0631 Last 24 Hrs of Lab/Kyle Results Last 24 Hrs of Labs/Mics: Laboratory Tests 10/13/16 0545: Anion Gap 12, Estimated GFR 21 L, BUN/Creatinine Ratio 19.7, Magnesium 2.0, PT 24.2 H, INR 2.32 H, CBC w Diff NO MAN DIFF REQ, RBC 3.43 L, MCV 90.4, MCH 28.5, RDW 19.5 H, MPV 9.5, Gran % 78.3 H, Lymphocytes % 12.9 L, Monocytes % 6.0, Eosinophils % 2.3, Basophils % 0.5, Absolute Granulocytes 4.3, Absolute Lymphocytes 0.7 L, Absolute Monocytes 0.3, Absolute Eosinophils 0.1, Absolute Basophils 0, PUBS MCHC 31.5 L 10/12/16 1554: Lactic Acid Cancelled 10/12/16 1340: Urinalysis LIGHT H, Urine Color YEL, Urine Clarity CLEAR, Urine pH 6.0, Ur Specific [place] 1.020, Urine Protein 100 H, Urine Ketones NEG, Urine Nitrite NEG, Urine Bilirubin NEG, Urine Urobilinogen 0.2, Ur Leukocyte Esterase NEG, Ur Microscopic SEDIMENT EXAMINED, Urine RBC 10-15 H, Urine WBC RARE, Ur Epithelial Cells RARE, Urine Bacteria FEW H, Hyaline Casts RARE H, Urine Hemoglobin MOD H, Urine Glucose NEG 10/12/16 1340: Ur Random Creatinine 64.4, Ur Random Sodium 38, Ur Random Potassium 21.1, Fraction Sodium Excret 1.4 H 10/12/16 1332: Anion Gap 11, Estimated GFR 19 L, BUN/Creatinine Ratio 18.2, Glucose 98, Lactic Acid 0.9, Calcium 8.4, Magnesium 2.0, Total Bilirubin 1.7 H, Direct Bilirubin 0.6 H, GGT 33, AST 22, ALT 24, Alkaline Phosphatase 144 H, Troponin I 0.04, Ilg-F-Ewxgjpqpuyk Pept 6780 H, Total Protein 6.1 L, Albumin 3.4 L, Globulin 2.7, Albumin/Globulin Ratio 1.3, PT 23.9 H, INR 2.29 H, APTT 36, CBC w Diff NO MAN DIFF REQ, RBC 3.50 L, MCV 89.1, MCH 28.9, RDW 19.4 H, MPV 9.9, Gran % 84.5 H, Lymphocytes % 10.4 L, Monocytes % 3.4, Eosinophils % 1.3, Basophils % 0.4, Absolute Granulocytes 4.8, Absolute Lymphocytes 0.6 L, Absolute Monocytes 0.2, Absolute Eosinophils 0.1, Absolute Basophils 0, PUBS MCHC 32.5 L Lines/Diet/Fluids Lines: peripheral lines Assessment/Plan Assessment: Patient is a 71 YO M with PMH signficant for Gout, AF (on comadin), 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 ER Course VS Afebrile, BP 130/80mmHg, Pulse 60-70bpm, on 2-2.5L oxygen Labs: CBC and electrolytes are unremarkable. Cr level of 3.3 (from 2.7 previously) ALP of 144, total bilirubin 1.7, ProBNP 6780. Imaging Renal ultrasound ruled out postobstuctive causes CXR - normal Plan ROXIE on CKD * Secondary to overdiuresis with lasix due to decompensated heart failure * Currently holding lasix, nephrotoxic agents, ACEI * patient claims he makes very less urine * His Creatinine improved to 3 from 3.3. * Received 2litres of fluids so far. * Patient requires plan for renal replacement therapy like AV fistula placement. * Nephro consulted - appreciate their recommendations. Congestive heart failure * Recent ECHO on jun 23 shows EF 55%, moderate right LVH, mild Pul HTN * Not in acute decompensated failure now as already well diuresed. * Stopped Ropinorole as associated with increased swelling of the leg. * Echocardiogram. * Need pharmacological stress test before discharge. Chronic stable conditions Atrial Fibrillation on coumadin. ANTONELLA on CPAP. Gout - on allopurinol - dose reduced to 100mg BID (from 300mg BID). DVT prophylaxis * on coumadin Code status * Full Code Problem List: 1. Yysti-uc-nhpbnzi kidney injury 2. Obstructive sleep apnea syndrome 3. Gout Pain Ratin Pain Location: n/a Pain Goal: Pain 4 or less Pain Plan: Tylenol IV PRN Tomorrow's Labs & Rationales: BEP to monitor renal function and electrolytes PT to monitor INR while on coumadin Consulting Request: Consulting Specialty: Nephrology
--- NOTE | 2016-10-13 07:29 | NUR ---
REPORT GIVEN TO GT MOLINA AND GT BROWN.
--- NOTE | 2016-10-13 08:06 | NUR ---
UNABKE TO EAT BREAKFAST, STATES HE HAS NO APPETITE.
--- NOTE | 2016-10-13 08:42 | NUR ---
BED ASSIGNMENT [id number]
--- NOTE | 2016-10-13 08:58 | NUR ---
AM MEDS GIVEN, PT REPORTS HE USES A C-PAP MACHINE AT NIGHT.
--- NOTE | 2016-10-13 08:58 | NUR ---
REPORT TO FLOOR.
--- NOTE | 2016-10-13 11:46 | NUR ---
OOB TO COMMODE, VOIDED. UNABLE TO EAT LUNCH, STATES HE HAS NO APPETITE. SOUP ORDERED.
--- NOTE | 2016-10-13 12:20 | NUR ---
C/O ARTHRITIS PAIN, MEDICATED WITH IV OFIMEV 1000 MG.
[2016-10-13 15:17] VITALS: BP 135/92
--- NOTE | 2016-10-13 15:35 | Cons- Cardiology ---
General Information and HPI Consulting Request Date of Consult: 10/13/16 Requested By: FELA LAIRD MD History of Present Illness: Fortunato is a 71 year old male with a history of hypertension, dyslipidemia, coronary artery disease, permanent pacemaker and atrial fibrillation. At baseline he tends to be short of breath with exertion and uses Lasix to improve his breathing and his weight. He recently had an issue with overdiuresis while taking Lasix at 160mg daily and I recommended that this dose be decreased to 80mg daily with careful follow up. He has not followed up and presents with renal insufficiency after an increase in his Lasix dose to 120mg. From a symptomatic standpoint, this patient has noted bilateral leg swelling which is somewhat improved today. He tends to lie down for most of the day with almost no activity. If he is active he will experience exertional shortness of breath although he denies orthopnea. He does have some transient lightheadedness upon arising but denies palpitations. There are no current complaints of chest discomfort although on his prior visit he did report a mild to moderate non- radiating chest tightness with exertion. I recommended a stress test that was not done. Finally, this patient also reports a non-productive cough without fever or chills. To review this patient's prior history, he did have a recent hospital admission for fluid overload that I felt was exacerbated by Gabapentin. He switched to Requip for his restless legs with some improvement. He has also had hypertension and fluid overload related to copious NSAID use to treat his gout but he now refrains from taking NSAIDS. His baseline creatinine was 1.8 but this has now gone up considerably. His latest echocardiogram shows a normal EF of 70% with mild to moderate left ventricular hypertrophy, a markedly enlarged left atrium and mild tricuspid and pulmonic regurgitation. A mildly enlarged aortic root and ascending aorta was also noted. To review the patient's past cardiac workup, this patient has undergone a Persantine stress test, which showed no evidence of myocardial ischemia, although there is a fixed defect in the inferior wall. His ejection fraction on this study was 38%. An older echocardiogram, showed an ejection fraction of greater than 35 to 40% with a moderate left ventricular hypertrophy. The right ventricle was mildly to moderately dilated. The right atrium was mildly dilated and the left atrium was moderately enlarged. In terms of cardiac valves, there was trace mitral regurgitation, mild tricuspid regurgitation, and mildly elevated pulmonary pressures at 46 mmHg. A mildly dilated aortic root was also noted. This EF was clearly less than on his most recent echocardiogram. Prior cardiac workup has also included a cardiac catheterization, which was pursued for chest discomfort. This study showed mild luminal irregularities in the LAD and left circumflex and moderate luminal irregularities in the dominant right coronary artery. His EF was 35 to 40% with inferoapical hypokinesis on this study. In the past, this patient did have some palpitations and dizziness, and he has had at least one syncopal episode, which occurred while he was working in a hot kitchen. He is status post permanent pacemaker placement for symptomatic sinus bradycardia with second-degree AV block and greater than 3-second pauses. Finally, it should be recalled that this patient has had some prior episodes of oral numbness as well as other symptoms that are somewhat suggestive of TIA's. He has perhaps had some other more permanent neurologic deficits. This may be related to thrombotic emboli from his atrial fibrillation. He has had prior cardioversions that did not result in durable maintenance of normal sinus rhythm. He is therefore on Coumadin for stroke prophylaxis. Allergies/Medications Allergies: Coded Allergies: Phenothiazines (Mild, OCULOGYRIC 11/15/15) Iodinated Contrast Media - Oral and (IODINATED CONTRAST MEDIA - IV DYE) ( URTICARIA 11/15/15) Uncoded Allergies: SOMATADINE (Intermediate, DOSE RELATED- GETS HIVES 02/08/12) Home Med List: Allopurinol 300 MG TABLET 1 TAB PO DAILY GOUT (Reported) I TAB IN AM HALF TAB AT BED TIME Allopurinol (Zyloprim) 300 MG TABLET 150 MG PO AT BEDTIME GOUT Cyanocobalamin (Vitamin B-12) 1,000 MCG TABLET 1 TAB PO DAILY SUPPLEMENT ( Reported) Escitalopram Oxalate 10 MG TABLET 1 TAB PO DAILY MENTAL HEALTH (Reported) Furosemide (Lasix) 80 MG TABLET 1 TAB PO DAILY DIURETIC (Reported) Furosemide (Lasix) 40 MG TABLET 1 TAB PO QPM SWELLING (Reported) Potassium Chloride 20 MEQ TAB.ER.PRT 2 TAB PO Q48 SUPPLEMENT (Reported) Potassium Chloride 20 MEQ TAB.ER.PRT 1 TAB PO Q48 SUPPLEMENT (Reported) Pravastatin Sodium (Pravachol) 40 MG TABLET 1 TAB PO DAILY CHOLESTEROL ( Reported) Ropinirole Hydrochloride (Requip) 0.25 MG TABLET 1 TAB PO BID RLS (Reported) Warfarin Sodium (Coumadin) 4 MG TABLET 1 TAB PO SuMoWeThSa BLOOD THINNER ( Reported) Warfarin Sodium (Coumadin) 6 MG TABLET 1 TAB PO TuFr BLOOD THINNER (Reported) Past History Travel History Traveled to [place] past 21 day No Medical History Neurological: TIA EENT: NONE Cardiovascular: AFIB, CAD, hypertension, permanent pacemaker Respiratory: OBS SLEEP apnea, USES CPAP Gastrointestinal: hiatal hernia Hepatic: NONE Renal: chronic kidney disease, nephrolithiasis Musculoskeletal: gout, osteoarthritis Psychiatric: depression Endocrine: PRE-DIABETIC AIC Blood Disorders: NONE Cancer(s): NONE REGISTERED NURSE PRACTITIONER/Reproductive: NONE Other Medical Hx: cat scratch fever, psoriasis Surgical History Surgical History: appendectomy, cholecystectomy, colon resection (for adhesions/ ischemic bowel), ileo jejeunal bypass with subsequent reversal bypass surgery bowel resection for adhesions with bowel ischemia incisional hernia repair tonsillectomy incisional hernia repair Family History Relations & Conditions If Any: MOTHER Relation not specified for: FH: diabetes mellitus Psychosocial History Where Do You Live? Home Services at Home: None Smoking Status: Never Smoked ETOH Use: denies use Illicit Drug Use: denies illicit drug use Functional Ability ADLs Independent: dressing, eating, toileting, bathing. Ambulation: independent IADLs Independent: shopping, housework, finances, food prep, telephone, transportation , medication admin. Exam & Diagnostic Data Vital Signs and I&O Vital Signs Date Time Temp Pulse Resp B/P B/P Pulse O2 O2 Flow FiO2 Mean Ox Delivery Rate 10/13 1207 96.0 66 18 140/80 99 Room Air 10/13 1158 Nasal 2.0L Cannula 10/13 0636 98.0 65 18 126/74 94 Nasal 2.5L Cannula 10/13 0600 98.0 65 18 126/74 94 Nasal 2.5L Cannula 10/12 1856 80 22 138/82 95 Nasal 2.5L Cannula Intake & Output 10/13 1600 10/13 0800 10/13 0000 10/12 1600 10/12 0000 Intake Total 240 Output Total 141 491 7565 250 Balance -650 -500 -1060 -250 Intake, Oral 240 Number 1 Bowel Movements Output, Urine 368 519 5633 250 Patient 372 lb 372 lb Weight Physical Exam: General: WD/ morbidly obese male in NAD; alert and oriented x 3 HEENT: NC/ AT, PERRL, EOMI, poor dentition Neck: no JVD, no carotid bruit Heart: irregularly irregular w/o murmur Lungs: decreased air movement bilaterally Abdomen: soft, obese, NT, +ve bowel sounds Extremities: 2+ bilateral leg edema Assessment/Plan Assessment/Plan * This patient has progressive renal insufficiency related to overdiuresis. Lasix is being employed to help the patient keep his weight off and to limit his leg swelling in the belief that he has decompensated congestive heart failure. I suspect that this patient has dependent edema related to obesity and his shortness of breath is likely due to a combination of restriction of his breathing from his morbid obesity, anemia and exercise intolerance related to his weight. At present he does not have decompensated left heart failure. It is somewhat difficult to accurately rule out right heart failure on exam, although there is no definite JVD that I can detect. * Obtain an echocardiogram * Stop Lasix and avoid ACEI, ARBS and NSAIDS except aspirin. * Agree with IV fluids. Monitor his BUN, creatinine and potassium. * Leg swelling is a known side effect of Ropinirole and should be stopped. * Prior to discharge this patient will need a pharmocologic stress test. Consult Acknowledgment - Thank you for your consult request.
--- NOTE | 2016-10-13 15:48 | NUR ---
PT NOT INTERESTED IN HIS MEAL TRAY
--- NOTE | 2016-10-13 17:32 | NUR ---
PT EATING SOUP FROM ALTERNATE TRAY. GOOD PO FLUID INTAKE. PT WITH NO COMPLAINTS, ASKING FOR REMOTE CONTROL FOR TV, NONE IN DEPARTMENT, KNOTTER AWARE AND UNABLE TO FIND REMOTE ALSO. PT STATING HE WILL USE HIS CELL PHONE TO CONTROL TV AFTER HIS DTR BRINGS HIS MOTH PROOFER. ECONOMIC FORECASTER PAGED TO ORDER PT'S CPAP FOR TONIGHT, AWAITING RESPONSE.
--- NOTE | 2016-10-13 17:41 | NUR ---
PT ADMITTED TO ROOM 235-1
--- NOTE | 2016-10-13 18:17 | NUR ---
REPORT CALLED ON [facility] ON 2NA. BED IS NOT CLEAN YET--MAY CALL TRANSPORT WHEN BEDBOARD SHOWS BED IS CLEAN. GT NEW IN AGREEMENT.
[2016-10-13 19:22] VITALS: BP 148/90
--- NOTE | 2016-10-13 19:48 | NUR ---
ADMISSION NOTE-PT ARRIVED TO FLOOR AT THIS TIME, A/O X 3, ON 2L NC, LUNGS CLEAR THROUGHOUT, 90-91% ON 2L. WEARS CPAP AT HS CALL PLACED TO [facility]ODUCT [facility] FOR ORDER FOR THIS. PT'S DAUGHTER AT BEDSIDE. PT DENIES PAIN AT THIS TIME, DID JUST RECEIVE IV DILAUDID IN ER FOR C/O ARTHRITIS PAIN TO BILATERAL KNEES. URINAL PROVIDED AND BSC. LMB YESTERDAY. +BS, +FLATUS, SKIN INTACT, HISTORY OF PSORIASIS- NOTED ON ELBOWS AND KNEES. PT HAS OWN COMPRESSION STOCKINGS ON FROM HOME, AND ALPS. ORIENTED TO ROOM AND USE OF CALL JANG. NS INFUSING, ORDER TO D/C ONCE THIS BAG IS COMPLETE. PT STATES LACK OF APPETITE LATELY BUT TAKING IN PO FLUIDS WELL. BLE EDEMA 1-2. DENIES SOB. WILL CONTINUE TO MONITOR.
[2016-10-14 01:53] VITALS: BP 130/80
[2016-10-14 06:58] VITALS: BP 114/72
--- NOTE | 2016-10-14 07:24 | PN- Housestaff ---
See Addendum KATIA BIANCHI,SAMANTHA 10/14/16 0724: Subjective Follow-up For: ROXIE on CKD Subjective: Sitting comfotably on the bed, still on 2.5L oxygen. No overnight events. Review of Systems Constitutional: Reports: see HPI. Respiratory: Reports: short of breath. Comments: ROS negative except the above. Objective Last 24 Hrs of Vital Signs/I&O Vital Signs Date Time Temp Pulse Resp B/P B/P Pulse O2 O2 Flow FiO2 Mean Ox Delivery Rate 10/14 0658 97.8 64 18 114/72 94 10/14 0205 75 95 10/14 0153 97.8 60 18 130/80 93 CPAP 10/14 0000 CPAP 2.0L 10/13 2206 62 94 10/13 1922 97.7 67 20 148/90 91 Nasal Cannula 10/13 1518 94 Nasal 2.0L Cannula 10/13 1517 96.5 60 20 135/92 94 Nasal 2.0L Cannula 10/13 1207 96.0 66 18 140/80 99 Room Air 10/13 1158 Nasal 2.0L Cannula Intake & Output 10/14 0800 05 0000 10/13 1600 Intake Total 800 Output Total 300 280 900 Balance -300 520 -900 Intake, IV 800 Output, Urine 300 280 900 Physical Exam General Appearance: Alert, Oriented X3, Cooperative, No Acute Distress Skin: No Rashes, No Breakdown HEENT: Atraumatic, PERRLA, EOMI Neck: Supple Cardiovascular: Normal S1, Normal S2, irregularly irregular Lungs: Clear to Auscultation, Normal Air Movement Abdomen: Normal Bowel Sounds, Soft, No Tenderness Neurological: Strength at 5/5 X4 Ext, Normal Tone, Sensation Intact Extremities: No Clubbing, No Cyanosis, 2+ edema bilaterally Vascular: Pulses Symmetrical Current Medications: Current Medications Sig/Maria Dolores Start time Last Medication Dose Route Stop Time Status Admin Acetaminophen 1,000 MG Q6P PRN 10/13 1599 AC 10/13 IV 1221 Allopurinol 100 MG Q12 10/12 2199 AC 10/14 PO 0825 Cyanocobalamin 1,000 MCG DAILY 10/13 999 AC 10/14 PO 0825 Escitalopram Oxalate 10 MG DAILY 10/13 999 AC 10/14 PO 0824 Hydromorphone HCl 0.5 MG Q4P PRN 10/12 1600 AC 10/14 IV 1434 Patient Medication 1 ED .STK-MED ONE 10/14 1409 ME Teaching ED 10/14 1410 Pravastatin Sodium 40 MG DAILY 10/13 1000 AC 10/14 PO 0824 Last 24 Hrs of Lab/Kyle Results Last 24 Hrs of Labs/Mics: Laboratory Tests 10/14/16 0630: Anion Gap 10, Estimated GFR 20 L, BUN/Creatinine Ratio 16.8, Magnesium 2.1, PT 24.8 H, INR 2.38 H Assessment/Plan Assessment: Patient is a 71 YO M with PMH signficant for Gout, AF (on comadin), 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 Plan ROXIE on CKD * Secondary to overdiuresis with lasix due to decompensated heart failure * Currently holding lasix, nephrotoxic agents, ACEI * Cr 3.1 with adequate urination. * Received 2litres of fluids so far. * Outpatient plan for renal replacement therapy follow up. * Requested 24hr urine collection for creatinine, protein, BUN for measurement of creatinine clearance. * Nephro consulted - appreciate their recommendations. Congestive heart failure * Recent ECHO on jun 23 shows EF 55%, moderate right LVH, mild Pul HTN * Not in acute decompensated failure now as already well diuresed. * Stopped Ropinorole as associated with increased swelling of the leg. * Echocardiogram. * Need pharmacological stress test before discharge. Chronic stable conditions Atrial Fibrillation on coumadin - dosed with warfarin 4mg today, INR therapeutic. ANTONELLA on CPAP. Gout - on allopurinol - dose reduced to 100mg BID (from 300mg BID). DVT prophylaxis * on coumadin Code status * Full Code Problem List: 1. [id number] kidney injury 2. hx of atrial fibrillation 3. Osteoarthritis 4. Dyspnea Pain Ratin Pain Location: n/a Pain Goal: Pain 4 or less Pain Plan: tylenol prn Tomorrow's Labs & Rationales: bep to monitor renal function 24hr urnie collection on process Consulting Request: Consulting Specialty: Nephrology DIMITRY BIANCHI,GREYSON 10/14/16 1159: Attending Review Statement Attending Statement Attending Statement: examined this patient, discuss w/resident/PA/MISSIONARY COORDINATOR, agreed w/resident/PA/MISSIONARY COORDINATOR, reviewed EMR data (avail), discussed with nursing, discussed with case mgmt, amended to note Attending Assessment/Plan: Patient seen and examined. Resting comfortably with no acute problems overnight. He remains hemodynamically stable. Denies any shortness of breath or chest pain at rest. His renal function has improved since admission however there is a mild increase compared to yesterday. On examination lungs are clear bilaterally. Bilateral compression stockings are in place. Nephrology follow- up appreciated. We'll continue to monitor patient off diuretic therapy. We'll hold off for the fluids for now. He is having adequate urine output. There is no indication for renal replacement therapy at present. We'll follow recommendations of the renal service. Cardiology service plans for ischemic workup prior to discharge.
[2016-10-14 08:32] LABS: PT 24.8 SEC (9.4-12.5)
--- NOTE | 2016-10-14 10:23 | Cons- Nephrology ---
General Information and HPI Consulting Request Date of Consult: 10/14/16 Requested By: FELA LAIRD MD Reason for Consult: Elevated creatinine level History of Present Illness: Mr. Rodarte is a 71 yo gentleman with HTN, hyperlipidemia, obesity, CHF (EF 35-40 %), afib with permanant pacemaker who was admitted yesterday because of a rising serum creatinine. He has a history of chronic kidney disease stage III thought to be secondary to nephrosclerosis and cardiorenal syndrome. Previous evaluation has included negative serologies, a bland urine sediment and mid grade proteinuria (1250 mg/24 hours). His baseline creatinine is usually in the mid 1's to 2 range but as recently as this past July has ranged from 2.6- 3.0. His other complaint on admission is worsening lower extremity edema ( approximately 10 pound weight gain over the past few weeks) and some increase in shortness of breath. His output patient Lasix dose was recently 120 mg daily. Chest x-ray does not show any overt CHF and renal ultrasound negative for obstruction. He denies any recent exposure to NSAIDs, parenteral contrast or other potential nephrotoxins other than his Lasix. Past medical history is as noted above. Did addition, he has had a previous ileojejunal bypass in 1970 which was reversed, gastric stapling in 1979, cholecystectomy, small bowel resection 1999. Medications: See below Allergies: Cimetidine, phenothiazines, iodinated contrast Family history: Positive for kidney stones but negative for any other form of kidney disease in his parents or any other family members Social history: Negative for alcohol abuse or drug abuse. 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 Allergies/Medications Allergies: Coded Allergies: Phenothiazines (Mild, OCULOGYRIC 11/15/15) Iodinated Contrast Media - Oral and (IODINATED CONTRAST MEDIA - IV DYE) ( URTICARIA 11/15/15) Uncoded Allergies: SOMATADINE (Intermediate, DOSE RELATED- GETS HIVES 02/08/12) Home Med List: Allopurinol 300 MG TABLET 1 TAB PO DAILY GOUT (Reported) I TAB IN AM HALF TAB AT BED TIME Allopurinol (Zyloprim) 300 MG TABLET 150 MG PO AT BEDTIME GOUT Cyanocobalamin (Vitamin B-12) 1,000 MCG TABLET 1 TAB PO DAILY SUPPLEMENT ( Reported) Escitalopram Oxalate 10 MG TABLET 1 TAB PO DAILY MENTAL HEALTH (Reported) Furosemide (Lasix) 80 MG TABLET 1 TAB PO DAILY DIURETIC (Reported) Furosemide (Lasix) 40 MG TABLET 1 TAB PO QPM SWELLING (Reported) Potassium Chloride 20 MEQ TAB.ER.PRT 2 TAB PO Q48 SUPPLEMENT (Reported) Potassium Chloride 20 MEQ TAB.ER.PRT 1 TAB PO Q48 SUPPLEMENT (Reported) Pravastatin Sodium (Pravachol) 40 MG TABLET 1 TAB PO DAILY CHOLESTEROL ( Reported) Ropinirole Hydrochloride (Requip) 0.25 MG TABLET 1 TAB PO BID RLS (Reported) Warfarin Sodium (Coumadin) 4 MG TABLET 1 TAB PO SuMoWeThSa BLOOD THINNER ( Reported) Warfarin Sodium (Coumadin) 6 MG TABLET 1 TAB PO TuFr BLOOD THINNER (Reported) Review of Systems Review of Systems: 12 point review of systems negative in detail except as noted in the HPI. Past History Travel History Traveled to [place] past 21 day No Medical History Neurological: TIA EENT: NONE Cardiovascular: AFIB, CAD, hypertension, permanent pacemaker Respiratory: OBS SLEEP apnea, USES CPAP Gastrointestinal: hiatal hernia Hepatic: NONE Renal: chronic kidney disease, nephrolithiasis Musculoskeletal: gout, osteoarthritis Psychiatric: depression Endocrine: PRE-DIABETIC AIC Blood Disorders: NONE Cancer(s): NONE EMS INSTRUCTOR/Reproductive: NONE Other Medical Hx: cat scratch fever, psoriasis Surgical History Surgical History: appendectomy, cholecystectomy, colon resection (for adhesions/ ischemic bowel), ileo jejeunal bypass with subsequent reversal bypass surgery bowel resection for adhesions with bowel ischemia incisional hernia repair tonsillectomy incisional hernia repair Family History Relations & Conditions If Any: MOTHER Relation not specified for: FH: diabetes mellitus Psychosocial History Where Do You Live? Home Services at Home: None Smoking Status: Never Smoked ETOH Use: denies use Illicit Drug Use: denies illicit drug use Functional Ability ADLs Independent: dressing, eating, toileting, bathing. Ambulation: independent IADLs Independent: shopping, housework, finances, food prep, telephone, transportation , medication admin. Exam & Diagnostic Data Vital Signs and I&O Vital Signs Date Time Temp Pulse Resp B/P B/P Pulse O2 O2 Flow FiO2 Mean Ox Delivery Rate 10/14 0834 18 93 Nasal 2.5L Cannula 10/14 0800 93 Nasal 2.5L Cannula 10/14 0658 97.8 64 18 114/72 94 10/14 0205 75 95 10/14 0153 97.8 60 18 130/80 93 CPAP 10/14 0000 CPAP 2.0L 10/13 2206 62 94 10/13 1922 97.7 67 20 148/90 91 Nasal Cannula 10/13 1518 94 Nasal 2.0L Cannula 10/13 1517 96.5 60 20 135/92 94 Nasal 2.0L Cannula 10/13 1207 96.0 66 18 140/80 99 Room Air 10/13 1158 Nasal 2.0L Cannula Intake & Output 10/14 1600 10/14 0400 10/13 1600 10/13 0400 10/12 1600 10/12 0400 Intake Total 800 240 Output Total 303 380 7109 1300 250 Balance -300 520 -1400 -1060 -250 Intake, IV 800 Intake, Oral 240 Number 1 Bowel Movements Output, Urine 651 133 5924 1300 250 Patient 372 lb 372 lb Weight Physical Exam: General: Well-developed, pleasant, obese white male in no acute distress Skin: No rash or jaundice HEENT: Conjunctivae pink, sclerae anicteric, mucous membranes moist Neck: Without masses or thyromegaly, no supraclavicular or cervical adenopathy Chest: Clear to P&A with poor air entry and diminished breath sounds at bases; left infraclavicular pacemaker Heart: Irregular rhythm without S3 or rub Abdomen: Obese, soft and nontender without palpable masses or organomegaly Extremities: 3+ lower extremity edema without cyanosis Neuro: He is awake, alert and oriented; no focal findings, no asterixis or myoclonus Assessment/Plan Assessment/Recommendations Assessment: 71-year-old man with a multitude of comorbidities including chronic kidney disease secondary to nephrosclerosis and cardiorenal syndrome, congestive heart failure with pacemaker for history of heart block, morbid obesity and now with slightly worsening renal function in the setting of more fluid accumulation/ volume overload. There is no evidence of obstructive component by renal ultrasound and there has been no recent exposure to potential nephrotoxins other than his diuretic. He is currently being managed by holding his diuretic and administering IV normal saline. Recommendations: 1. Agree with holding diuretics for now and discontinuing ropinirole 2. Would not give any further IV fluids. 3. Repeat echocardiogram 4. 24-hour urine for protein, creatinine and BUN to calculate creatinine clearance; I believe that his estimated GFR in the date of system is spuriously low 5. Monitor intake and output, weights, chemistries daily Thank you. Will follow along with you.
--- NOTE | 2016-10-14 13:38 | PN- Cardiology ---
Subjective Subjective: * Breathing remains suboptimal. * creatinine is 3.1 Objective Vital Signs and I&Os Vital Signs Date Time Temp Pulse Resp B/P B/P Pulse O2 O2 Flow FiO2 Mean Ox Delivery Rate 10/14 0834 18 93 Nasal 2.5L Cannula 10/14 08 93 Nasal 2.5L Cannula 10/14 0658 97.8 64 18 114/72 94 10/14 0205 75 95 10/14 0153 97.8 60 18 130/80 93 CPAP 10/14 0000 CPAP 2.0L 10/13 2206 62 94 10/13 1922 97.7 67 20 148/90 91 Nasal Cannula 10/13 1518 94 Nasal 2.0L Cannula 10/13 1517 96.5 60 20 135/92 94 Nasal 2.0L Cannula Intake & Output 10/14 1600 10/14 0810/14 0000 10/13 1600 10/13 0000 Intake Total 800 240 Output Total 300 280 497 212 3341 Balance -300 520 -900 -500 -1060 Intake, IV 800 Intake, Oral 240 Number 1 Bowel Movements Output, Urine [phone] 4743 Patient 372 lb Weight Physical Exam: General: WD/ morbidly obese male in NAD; alert and oriented x 3 HEENT: NC/ AT, PERRL, EOMI, poor dentition Neck: no JVD, no carotid bruit Heart: irregularly irregular w/o murmur Lungs: no crackles or wheezing Abdomen: soft, obese, NT, +ve bowel sounds Extremities: 2+ bilateral leg edema Assessment/Plan Assessment/Plan * Continue to hold diuretics and monitor BUN and creatinine. * Agree with a repeat echo. Continue telemetry? Yes
[2016-10-14 14:08] VITALS: BP 132/70
--- NOTE | 2016-10-14 20:14 | Patient Discharge Instructions ---
Discharge Instructions General Discharge Information You were seen/treated for: acute on chronic kidney injury Watch for these problems: Sudden increase in shortness of breath, chest pain, nausea, vomiting, increased lower extremity edema requires immediate medical attention. Special Instructions: Please follow up with your PCP () in a week Please follow up with your Sales Representative Education Courses in a week Please follow up with in a month Diet Recommended Diet: Heart Healthy Activity Activity Self Limited: Yes Acute Coronary Syndrome Inclusion Criteria At DC or during hospital stay patient has or had the following: ACS DIAGNOSIS No Discharge Core Measures Meds if any: Prescribed or Continued at Discharge Meds if any: NOT Prescribed or Continued at Discharge Congestive Heart Failure Inclusion Criteria At DC or during hospital stay patient has or had the following: CHF DIAGNOSIS No Discharge Core Measures Meds if any: Prescribed or Continued at Discharge Meds if any: NOT Prescribed or Continued at Discharge Cerebrovascular accident Inclusion Criteria At DC or during hospital stay patient has or had the following: CVA/TIA Diagnosis No Discharge Core Measures Meds if any: Prescribed or Continued at Discharge Meds if any: NOT Prescribed or Continued at Discharge Venous thromboembolism Inclusion Criteria VTE Diagnosis No VTE Type NONE VTE Confirmed by (Test) NONE Discharge Core Measures - Per Current guidelines, there needs to be overlap - treatment for the first 5 days of Warfarin therapy. - If discharged on Warfarin prior to 5 days of - overlap therapy, the patient will need to be - assessed for post discharge needs including - *Post discharge parental anticoagulation - *Warfarin and/or parental anticoagulation education - *Follow up date to check INR post discharge At least 5 days overlap therapy as Inpatient No Meds if any: Prescribed or Continued at Discharge Note: Overlap Therapy is Warfarin and Anticoagulant Meds if any: NOT Prescribed or Continued at Discharge
[2016-10-14 22:17] VITALS: BP 110/60
[2016-10-15 06:23] VITALS: BP 106/68
--- NOTE | 2016-10-15 06:30 | PN- Housestaff ---
KATIA BIANCHI,SAMANTHA 10/15/16 0630: Subjective Follow-up For: ROXIE on CKD Subjective: He is lying comfortably on his bed with CPAP. Offers no complaints. 24hr urine collection in the process, NPO overnight for dipyrridamole stress test today. Reports he underwent ECHO yesterday. Review of Systems Constitutional: Reports: see HPI. Comments: ROS negative except the above. Objective Last 24 Hrs of Vital Signs/I&O Vital Signs Date Time Temp Pulse Resp B/P B/P Pulse O2 O2 Flow FiO2 Mean Ox Delivery Rate 10/15 0623 97.0 58 20 106/68 95 10/15 0316 76 95 10/15 0000 CPAP 10/14 2221 80 93 10/14 2217 97.6 61 20 110/60 90 Nasal Cannula 10/14 1408 98.2 77 20 132/70 98 10/14 0834 18 93 Nasal 2.5L Cannula 10/14 0800 93 Nasal 2.5L Cannula 10/14 0658 97.8 64 18 114/72 94 Intake & Output 10/15 0800 10/15 0000 10/14 1600 Intake Total 450 240 Output Total 1 Balance 449 240 Intake, Oral 450 240 Output, Stool 1 Physical Exam General Appearance: Alert, Oriented X3, Cooperative Skin: No Rashes, No Breakdown HEENT: Atraumatic, PERRLA, EOMI Neck: Supple Cardiovascular: Normal S1, Normal S2, irregularly irregular Lungs: Clear to Auscultation, Normal Air Movement Abdomen: Normal Bowel Sounds, Soft, No Tenderness Neurological: Normal Speech, Strength at 5/5 X4 Ext, Normal Tone, Sensation Intact Extremities: No Clubbing, No Cyanosis, 2+ edema with venous stasis changes Vascular: Pulses Symmetrical Current Medications: Current Medications Sig/Maria Dolores Start time Last Medication Dose Route Stop Time Status Admin Acetaminophen 1,000 MG .STK-MED ONE 10/15 2139 DC IV 10/14 2140 Acetaminophen 1,000 MG Q6P PRN 10/13 1599 AC 10/14 IV 2139 Allopurinol 100 MG Q12 10/12 2199 AC 10/14 PO 213 Cyanocobalamin 1,000 MCG DAILY 10/13 999 AC 10/14 PO 08 Escitalopram Oxalate 10 MG DAILY 10/13 999 AC 10/14 PO 0824 Hydromorphone HCl 0.5 MG Q4P PRN 10/12 1600 AC 10/14 IV 1434 Patient Medication 1 ED .STK-MED ONE 10/14 1409 DC Teaching ED 10/14 1410 Pravastatin Sodium 40 MG DAILY 10/13 1000 AC 10/14 PO 0824 Warfarin Sodium 4 MG COUMADIN 1700 ONE 10/15 1999 DC 10/14 PO 10/14 Assessment/Plan Assessment: Patient is a 71 YO M with PMH signficant for Gout, AF (on comadin), 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 Plan ROXIE on CKD * Secondary to overdiuresis with lasix due to decompensated heart failure * Continue holding lasix, nephrotoxic agents, ACEI * 24hr urine Cr, protein, BUN indicate it could be secondary to heart failure/ nephrosclerosis form HTN. * Stage III CKD. * Outpatient plan for renal replacement therapy follow up * Nephro consulted - appreciate their recommendations. Congestive heart failure with preserved EF * Recent ECHO on jun 23 shows EF 55%, moderate right LVH, mild Pul HTN * Not in acute decompensated failure now as already well diuresed. * Stopped Ropinorole as associated with increased swelling of the leg. * Echocardiogram - shows EF 60% * NPO tonight to complete 2 day pharmacological test. * Probably HTN / unclear factors --> concentric LVH --> left atrial enlargement --> pul HTN --> right ventricular enlargement. Chronic stable conditions Atrial Fibrillation on coumadin - dosed with warfarin 4mg today, INR therapeutic. ANTONELLA on CPAP. Gout - on allopurinol - dose reduced to 100mg BID (from 300mg BID). DVT prophylaxis * on coumadin Code status * Full Code Problem List: 1. Obstructive sleep apnea syndrome 2. Obesity 3. Osteoarthritis 4. Cewry-cx-jiuygdh kidney injury Pain Ratin Pain Location: knees Pain Goal: Pain 4 or less Pain Plan: tylenol prn Tomorrow's Labs & Rationales: bep to monitor Cr levels. Consulting Request: Consulting Specialty: Nephrology DIMITRY BIANCHI,GREYSON 10/15/16 1010: Attending Review Statement Attending Statement Attending MD Statement: examined this patient, discuss w/resident/PA/CERTIFIED FLEX ENDOSCOPE REPROCESSOR, agreed w/resident/PA/CERTIFIED FLEX ENDOSCOPE REPROCESSOR, discussed with family, reviewed EMR data (avail), discussed with nursing, discussed with case mgmt, amended to note Attending Assessment/Plan: Patient seen and examined. Resting comfortably and not in any acute distress. No new complaints today. Denies chest pain or shortness of breath at rest. Denies palpitations. He remains on oxygen supplementation. Rate was increased from 2-2.5 L overnight due to mild hypoxemia. On examination he does not show evidence of volume overload. His peripheral edema is unchanged as he has his compression stockings still in place. Air entry is good bilaterally although mildly decreased in the right lung base with no added sounds. Recommendations: -Continue holding Lasix pending evaluation of labs today. -Ropinirole is on hold as well as this may aggravate his edema. -He is scheduled to undergo echocardiogram and stress test today monitor respiratory status closely. He continues to require increasing oxygen will obtain repeat chest x-ray and consider resuming Lasix therapy. -Continue anticoagulation with Coumadin. Keep INR between 2 and 3.
--- NOTE | 2016-10-15 10:10 | NUR ---
PT GOING DOWN TO CARDIAC STRESS TEST AT THIS TIME. PT HAVING INCREASING BILATERAL LOWER EXTREMITY WEAKNESS. PT HAVING TROUBLE STANDING UP FROM CHAIR TO WHEELCHAIR. PT AX2 WITH RW. DISTRIBUTION BROUGHT UP CAPRICE. PT HAD EXSOB, NC 2.5L, 92% O2, VSS. MD SINGH NOTIFIED. A PHYSICAL THERAPY CONSULT HAS BEEN ORDERED.
--- NOTE | 2016-10-15 10:49 | PN- Cardiology ---
Subjective Subjective: * Mild shortness of breath persists * atrial fibrillation Objective Vital Signs and I&Os Vital Signs Date Time Temp Pulse Resp B/P B/P Pulse O2 O2 Flow FiO2 Mean Ox Delivery Rate 10/15 0924 18 92 Nasal 2.5L Cannula 10/15 0623 97.0 58 20 106/68 95 10/15 0316 76 95 10/15 0000 CPAP 10/14 2221 80 93 10/14 2217 97.6 61 20 110/60 90 Nasal Cannula 10/14 1408 98.2 77 20 132/70 98 Intake & Output 10/15 1600 10/15 0800 10/15 0000 10/14 1600 10/14 0810/14 0000 Intake Total 450 240 800 Output Total 350 1 300 280 Balance -350 449 240 -300 520 Intake, IV 800 Intake, Oral 450 240 Number 0 Bowel Movements Output, Stool 1 Output, Urine 350 300 280 Physical Exam: General: WD/ morbidly obese male in NAD; alert and oriented x 3 HEENT: NC/ AT, PERRL, EOMI, poor dentition Neck: no JVD, no carotid bruit Heart: irregularly irregular w/o murmur Lungs: no crackles or wheezing Abdomen: soft, obese, NT, +ve bowel sounds Extremities: 2+ bilateral leg edema Assessment/Plan Assessment/Plan * Continue to hold diuretics and monitor BUN and creatinine. * A pharmocologic stress test is in progress and is a two day protocol. Continue telemetry? Yes
[2016-10-15 10:53] LABS: ABSOLUTE BASOPHIL COUNT 0.1 /CUMM (0.0-0.2); ABSOLUTE EOSINOPHIL COUNT 0.2 /CUMM (0.0-0.7); ABSOLUTE GRANULOCYTE CT 4.1 /CUMM (1.4-6.5); ABSOLUTE LYMPH COUNT 0.7 /CUMM (1.2-3.4); ABSOLUTE MONOCYTE COUNT 0.2 /CUMM (0.10-0.60); EOSINOPHIL % 2.9 % (0-5); GRANULOCYTE % 78.4 % (42.2-75.2); HEMATOCRIT 32.8 % (42-52); MEAN CORPUSCULAR HGB 28.8 PG (27.0-31.0); MEAN CORPUSCULAR HGB CONC 31.3 G/DL (33.0-37.0); MEAN PLATELET VOLUME 11.5 FL (7.4-10.4); PLATELET COUNT 134 /CUMM (130-400); RBC DISTRIBUTION WIDTH 19.6 % (11.5-14.5); RED BLOOD CELL CT 3.57 /CUMM (4.70-6.10); WHITE BLOOD CELL COUNT 5.3 /CUMM (4.8-10.8)
--- NOTE | 2016-10-15 11:37 | IV DIPYRIDAMOLE NUCLEAR STRESS ---
Clinical Diagnosis: Chest Pain, Congestive heart failure, pacemaker for 2nd degree block Referring Physician: Rai Howard Farm General Manager: Judy Pan IV DIPYRIDAMOLE INFUSED: 60 mg IV AMINOPHYLLINE INFUSED: 0 mg PATIENT WEIGHT: 372 lbs INTERPRETATION: The patient's baseline EKG showed atrial fibrillation with incomplete left bundle branch block at 64 BPM. Baseline B/P 128/74. The patient received 60 mg of dipyridamole infused intravenously over a 4 minute period. TC-99M or Myoview was injected after dipyridamole infusion. The patient tolerated the infusion well. There were no EKG changes seen following pharmacologic infusion. Arrhythmias: none IMPRESSION: The test was supervised by the interpreting Preparing Box Tender, who was in attendance during the entire test. No EKG evidence of stress induced myocardial ischemia. See separately dictated Nuclear Report.
--- NOTE | 2016-10-15 13:27 | NUR ---
PT BACK TO FLOOR FROM CARDIAC STRESS TEST.
[2016-10-15 13:48] VITALS: BP 120/80
--- NOTE | 2016-10-15 15:57 | PN- Nephrology ---
Assessment/Plan Assessment: 1. CKD stage III secondary to nephrosclerosis and cardiorenal syndrome 2. Acute kidney injury possibly secondary to diuretic therapy 3. Chronic congestive heart failure; cardiac evaluation in progress 4. Morbid obesity (BMI >40) Suggestion: 1. Continue to hold diuretics 2. Cardiac evaluation per Cardiology 3. Monitor intake and output, chemistries daily Subjective Subjective: Patient feels no different today, neither better worse. He is still mildly short of breath. Renal function not significantly changed. 24-hour urine results noted by them not convinced this represents a complete collection as there was only 900 mg of creatinine in the specimen or only 5 mg/kg as opposed to a minimum that would be expected of 15 mg/kg in males regardless of renal function. Using the Cockcroft-Gault equation, based on his age, weight and serum creatinine his estimated creatinine clearance is 54 mL/min. Objective Vital Signs and I&Os Vital Signs Date Time Temp Pulse Resp B/P B/P Pulse O2 O2 Flow FiO2 Mean Ox Delivery Rate 10/15 1400 18 92 Nasal 3.0L Cannula 10/15 1348 98.0 90 20 120/80 98 10/15 1127 Nasal 2.5L Cannula 10/15 0924 18 92 Nasal 2.5L Cannula 10/15 0623 97.0 58 20 106/68 95 10/15 0316 76 95 10/15 0000 CPAP 10/14 2221 80 93 10/14 2217 97.6 61 20 110/60 90 Nasal Cannula Intake & Output 10/15 1600 10/15 0400 10/14 1600 10/14 0400 10/13 1600 10/13 0400 Intake Total 450 240 800 240 Output Total 350 3 832 599 7348 1300 Balance -350 449 -60 520 -1400 -1060 Intake, IV 800 Intake, Oral 450 240 240 Number 0 1 Bowel Movements Output, Stool 1 Output, Urine 350 708 938 2456 1300 Patient 372 lb 372 lb Weight Physical Exam: General: Well-developed, pleasant, obese white male in no acute distress Skin: No rash or jaundice HEENT: Conjunctivae pink, sclerae anicteric, mucous membranes moist Neck: Without masses or thyromegaly, no supraclavicular or cervical adenopathy Chest: Clear to P&A with poor air entry and diminished breath sounds at bases; left infraclavicular pacemaker Heart: Irregular rhythm without S3 or rub Abdomen: Obese, soft and nontender without palpable masses or organomegaly Extremities: 2-3+ lower extremity edema without cyanosis Neuro: He is awake, alert and oriented; no focal findings, no asterixis or myoclonus Results Pertinent Lab Results: Laboratory Tests 10/15 10/15 10/14 1312 0840 0630 Chemistry Sodium (137 - 145 mmol/L) 143 144 Potassium (3.5 - 5.1 mmol/L) 4.1 4.4 Chloride (98 - 107 mmol/L) 102 103 Carbon Dioxide (22 - 30 mmol/L) 29 31 H Anion Gap (5 - 16) 12 10 BUN (9 - 20 mg/dL) 52 H 52 H Creatinine (0.7 - 1.2 mg/dL) 3.0 H 3.1 H Estimated GFR (>60 ml/min) 21 L 20 L BUN/Creatinine Ratio (7 - 25 %) 17.3 16.8 Magnesium (1.6 - 2.3 mg/dL) 2.1 Coagulation PT (9.4 - 12.5 SEC) 24.8 H INR (0.90 - 1.17) 2.38 H Hematology CBC w Diff NO MAN DIFF REQ WBC (4.8 - 10.8 /CUMM) 5.3 RBC (4.70 - 6.10 /CUMM) 3.57 L Hgb (14.0 - 18.0 G/DL) 10.3 L Hct (42 - 52 %) 32.8 L MCV (80.0 - 94.0 FL) 92.0 MCH (27.0 - 31.0 PG) 28.8 RDW (11.5 - 14.5 %) 19.6 H Plt Count (130 - 400 /CUMM) 134 MPV (7.4 - 10.4 FL) 11.5 H Gran % (42.2 - 75.2 %) 78.4 H Lymphocytes % (20.5 - 51.1 %) 13.2 L Monocytes % (1.7 - 9.3 %) 4.5 Eosinophils % (0 - 5 %) 2.9 Basophils % (0.0 - 2.0 %) 1.0 Absolute Granulocytes (1.4 - 6.5 /CUMM) 4.1 Absolute Lymphocytes (1.2 - 3.4 /CUMM) 0.7 L Absolute Monocytes (0.10 - 0.60 /CUMM) 0.2 Absolute Eosinophils (0.0 - 0.7 /CUMM) 0.2 Absolute Basophils (0.0 - 0.2 /CUMM) 0.1 PUBS MCHC (33.0 - 37.0 G/DL) 31.3 L Urines Ur Random Creatinine (mg/dL) 104.7 Urine Total Volume (600 - 1500 ML/24HR) 850 Urine Creatinine (1.0 - 2.0 g/24HR) 0.9 L Ur Total Protein 24 Hr (42 - 255 mg/24HR) 1683.0 H Ur Sodium 24 Hour (30 - 90 mmol/L) 9 L Ur Potassium 24 Hour (25 - 125 mmol/24H) 17.9 L 05/09 0545 Chemistry Sodium (137 - 145 mmol/L) 146 H Potassium (3.5 - 5.1 mmol/L) 3.9 Chloride (98 - 107 mmol/L) 105 Carbon Dioxide (22 - 30 mmol/L) 29 Anion Gap (5 - 16) 12 BUN (9 - 20 mg/dL) 59 H Creatinine (0.7 - 1.2 mg/dL) 3.0 H Estimated GFR (>60 ml/min) 21 L BUN/Creatinine Ratio (7 - 25 %) 19.7 Magnesium (1.6 - 2.3 mg/dL) 2.0 Coagulation PT (9.4 - 12.5 SEC) 24.2 H INR (0.90 - 1.17) 2.32 H Hematology CBC w Diff NO MAN DIFF REQ WBC (4.8 - 10.8 /CUMM) 5.5 RBC (4.70 - 6.10 /CUMM) 3.43 L Hgb (14.0 - 18.0 G/DL) 9.8 L Hct (42 - 52 %) 31.0 L MCV (80.0 - 94.0 FL) 90.4 MCH (27.0 - 31.0 PG) 28.5 RDW (11.5 - 14.5 %) 19.5 H Plt Count (130 - 400 /CUMM) 138 MPV (7.4 - 10.4 FL) 9.5 Gran % (42.2 - 75.2 %) 78.3 H Lymphocytes % (20.5 - 51.1 %) 12.9 L Monocytes % (1.7 - 9.3 %) 6.0 Eosinophils % (0 - 5 %) 2.3 Basophils % (0.0 - 2.0 %) 0.5 Absolute Granulocytes (1.4 - 6.5 /CUMM) 4.3 Absolute Lymphocytes (1.2 - 3.4 /CUMM) 0.7 L Absolute Monocytes (0.10 - 0.60 /CUMM) 0.3 Absolute Eosinophils (0.0 - 0.7 /CUMM) 0.1 Absolute Basophils (0.0 - 0.2 /CUMM) 0 PUBS MCHC (33.0 - 37.0 G/DL) 31.5 L
--- NOTE | 2016-10-15 17:38 | RADIOLOGY REPORT ---
EXAMINATION: XR CHEST CLINICAL INFORMATION: Exertional shortness of breath, desaturation requiring oxygen. Evaluate fluid overload. COMPARISON: Multiple priors, most recent chest radiographs dated 10/12/2016. TECHNIQUE: AP and lateral views of the chest were obtained. FINDINGS: A left-sided dual-lead pacer is re-demonstrated with its leads overlying the right heart. Low lung volumes are again noted. There is bibasilar atelectasis versus infiltrates, not significantly changed. Mild prominence of the pulmonary vasculature and cardiomegaly are also unchanged. No pneumothorax. The lateral views of the chest are limited secondary to low lung volumes and patient body habitus; however, there are probable small bilateral pleural effusions. No acute osseous abnormality. IMPRESSION: 1. Bibasilar atelectasis versus infiltrates, not significantly changed. 2. Stable cardiomegaly and prominence of the pulmonary vasculature. 3. Limited lateral views secondary to low lung volumes and patient body habitus; however, there are probable small bilateral pleural effusions.
--- NOTE | 2016-10-15 19:21 | ECHOCARDIOGRAM REPORT ---
LOUANN WARD Age: 71 : 1945 Gender: M Exam Date: 10/14/2016 19:33 Exam Location: [address] [place] [address] A Ht (in): 75 Wt (lb): 327 BSA: 2.86 BP: 135 / 92 Ordering Physician: SAMANTHA MONTALVO MD Referring Physician: Zurdo Howard MD, PhD Technologist: Ava Fregoso [facility] Room Number: [id number] Indications: HEART FAILURE Rhythm: Atrial fibrillation Technical Quality: poor FINDINGS Left Ventricle Normal left ventricular size, wall thickness and systolic function with no obvious regional wall motion abnormalities. The ejection fraction is visually estimated at 60%. Right Ventricle The right ventricle is mildly enlarged with normal function. A pacemaker lead is noted. Right Atrium The right atrium is normal in size. Left Atrium The left atrium is markedly enlarged. The interatrial septum is intact. Mitral Valve The mitral valve is normal in structure and function. There is no mitral regurgitation. Aortic Valve Structurally normal aortic valve without significant sclerosis or stenosis. There is no aortic regurgitation. Tricuspid Valve The tricuspid valve is normal in structure and function. There is mild tricuspid regurgitation. Pulmonary artery systolic pressure is moderately elevated to 51mmHg. Pulmonic Valve The pulmonic valve is poorly visualized. Pericardium Normal pericardium without effusion. No pleural effusion. Great Vessels Normal aortic root dimension. The aortic arch and great vessels are well seen and are normal. CONCLUSIONS 1. Normal EF of 60% based on limited views. 2. Mild right ventricular enlargement. A pacemaker lead is noted. 3. Severely enlarged left atrium. 4. Mild tricuspid regurgitation. 5. Moderate pulmonary hypertension. Zurdo Howard M.D. (Electronically Signed) Final Date: 15 Oct 2016 19:21 MEASUREMENTS (Male / Female) Normal Values 2D ECHO LV Diastolic Diameter PLAX 5.1 cm 4.2 - 5.9 / 3.9 - 5.3 cm LV Systolic Diameter PLAX 3.2 cm 2.1 - 4.0 cm LV Fractional Shortening PLAX 37.3 % 25 - 46 % LV Ejection Fraction 2D Teich 66.9 % IVS Diastolic Thickness 1.1 cm LVPW Diastolic Thickness 1.1 cm LV Relative Wall Thickness 0.4 RV Internal Dim ED PLAX 4.7 cm 1.9 - 3.8 cm LVOT Diameter 2.2 cm Aortic Root Diameter 3.6 cm LA Systolic Diameter LX 6.1 cm 3.0 - 4.0 / 2.7 - 3.8 cm LA Volume 86.0 cm 18 - 58 / 22 - 52 cm DOPPLER AV Peak Velocity 137.0 cm/s AV Peak Gradient 7.5 mmHg AV Mean Velocity 95.3 cm/s AV Mean Gradient 4.0 mmHg AV Velocity Time Integral 30.3 cm LVOT Peak Velocity 128.0 cm/s LVOT Peak Gradient 6.6 mmHg LVOT Mean Velocity 92.0 cm/s LVOT Mean Gradient 4.0 mmHg LVOT Velocity Time Integral 28.0 cm LVOT Stroke Volume 106.4 cm AV Area Cont Eq vti 3.5 cm AV Area Cont Eq pk 3.6 cm MV Peak Velocity 116.0 cm/s MV Peak Gradient 5.4 mmHg MV Mean Velocity 62.5 cm/s MV Mean Gradient 2.0 mmHg Mitral E Point Velocity 103.0 cm/s MV PHT Velocity 121.0 cm/s MV Deceleration [place] 382.0 cm/s MV Pressure Half Time 95.0 ms MV Area PHT 2.3 cm MV Deceleration Time 239.0 ms TR Peak Velocity 341.0 cm/s TR Peak Gradient 46.5 mmHg Right Atrial Pressure 5.0 mmHg Pulmonary Artery Systolic Pressu 51.5 mmHg Right Ventricular Systolic Press 51.5 mmHg LV E' Lateral Velocity 14.1 cm/s Mitral E to LV E' Lateral Ratio 7.3 LV E' Septal Velocity 8.3 cm/s Mitral E to LV E' Septal Ratio 12.4
[2016-10-15 22:37] VITALS: BP 130/80
[2016-10-16 06:30] VITALS: BP 136/80
--- NOTE | 2016-10-16 07:10 | PN- Housestaff ---
KATIA BIANCHI,SAMANTHA 10/16/16 0710: Subjective Follow-up For: ROXIE on CKD Stress test Subjective: I saw the patient today morning He is asleep in the bed with CPAP. He offers no complaints. He was NPO overnight went to 2nd half of pharmacological stress test. Review of Systems Constitutional: Reports: see HPI. Comments: ROS negative except the above. Objective Last 24 Hrs of Vital Signs/I&O Vital Signs Date Time Temp Pulse Resp B/P B/P Pulse O2 O2 Flow FiO2 Mean Ox Delivery Rate 10/16 0630 98.8 62 20 136/80 91 CPAP 10/16 0023 51 93 10/16 0000 BIPAP 10/15 2237 97.6 60 20 130/80 91 Nasal 3.0L Cannula 10/15 2206 72 91 10/15 1600 Nasal 3.0L Cannula 10/15 1400 18 92 Nasal 3.0L Cannula 10/15 1348 98.0 90 20 120/80 98 10/15 1127 Nasal 2.5L Cannula 10/15 0924 18 92 Nasal 2.5L Cannula 10/15 0800 93 Nasal 2.5L Cannula Intake & Output 10/16 0800 10/16 0000 10/15 1600 Intake Total 0 1070 Output Total 450 900 300 Balance -450 170 -300 Intake, IV 110 Intake, Oral 0 960 Output, Urine 450 900 300 Patient 168.736 kg Weight Physical Exam General Appearance: Alert, Oriented X3, Cooperative, No Acute Distress Skin: No Rashes, No Breakdown, chronic venous stasis changes on stockings. HEENT: Atraumatic, PERRLA Neck: Supple Lungs: Normal Air Movement, decreased breath sounds at bases Abdomen: Normal Bowel Sounds, Soft, No Tenderness Neurological: Normal Tone, Sensation Intact, Cranial Nerves 3-12 NL Current Medications: Current Medications Sig/Maria Dolores Start time Last Medication Dose Route Stop Time Status Admin Acetaminophen 1,000 MG .STK-MED ONE 10/15 2112 DC IV 10/15 2113 Acetaminophen 1,000 MG Q6P PRN 10/12 1600 AC 10/15 IV 211 Allopurinol 100 MG Q12 10/12 2200 AC 10/16 PO 1145 Alprazolam 0.5 MG ONCE ONE 10/16 0015 DC 10/16 PO 10/16 0016 0107 Cyanocobalamin 1,000 MCG DAILY 10/13 1000 AC 10/16 PO 1145 Escitalopram Oxalate 10 MG DAILY 10/13 1000 AC 10/16 PO 1145 Hydromorphone HCl 0.5 MG Q4P PRN 10/12 1600 AC 10/16 IV 1330 Patient Medication 1 ED .STK-MED ONE 10/16 1357 VT Teaching ED 10/16 1358 Pravastatin Sodium 40 MG DAILY 10/13 1000 AC 10/16 PO 1145 Warfarin Sodium 6 MG COUMADIN 1700 ONE 10/16 1700 DC 10/16 PO 10/16 1701 1809 Last 24 Hrs of Lab/Kyle Results Last 24 Hrs of Labs/Mics: Laboratory Tests 10/16/16 0720: Anion Gap 11, Estimated GFR 22 L, BUN/Creatinine Ratio 17.5, PT 32.9 H, INR 3.17 H Assessment/Plan Assessment: Patient is a 71 YO M with PMH signficant for Gout, AF (on comadin), 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 Plan ROXIE on CKD * Secondary to overdiuresis with lasix due to decompensated heart failure * Continue holding lasix, nephrotoxic agents, ACEI -- Cr today is 2.8. * 24hr urine Cr, protein, BUN indicate it could be secondary to heart failure/ nephrosclerosis form HTN. * Stage III CKD. * Outpatient plan for renal replacement therapy follow up * Nephro consulted - appreciate their recommendations. Congestive heart failure with preserved EF * Recent ECHO on jun 23 shows EF 55%, moderate right LVH, mild Pul HTN * Not in acute decompensated failure now as already well diuresed. * Stopped Ropinorole as associated with increased swelling of the leg. * Echocardiogram - shows EF 60% * Underwent stress test today. Results are pending. * Currently still on diuretics. * CXR tomorrow to revaluate for fluid overload * Probably HTN / unclear factors --> concentric LVH --> left atrial enlargement --> pul HTN --> right ventricular enlargement. Chronic stable conditions Atrial Fibrillation on coumadin - dosed with warfarin 4mg today, INR therapeutic. ANTONELLA on CPAP. Gout - on allopurinol - dose reduced to 100mg BID (from 300mg BID). DVT prophylaxis * on coumadin Code status * Full Code Problem List: 1. Obstructive sleep apnea syndrome 2. Laitn-kl-wwofmdm kidney injury Pain Ratin Pain Location: n/a Pain Goal: Pain 4 or less Pain Plan: tylenol prn Tomorrow's Labs & Rationales: bep to monitor Cr Consulting Request: Consulting Specialty: Nephrology GREYSON MORAES MD 10/16/16 1247: Attending MD Review Statement Attending Statement Attending MD Statement: examined this patient, discuss w/resident/PA/WIRE BRUSHER, agreed w/resident/PA/WIRE BRUSHER, reviewed EMR data (avail), discussed with nursing, discussed with case mgmt, amended to note Attending Assessment/Plan: Patient seen and examined. Resting comfortably and not in any acute distress. Denies any chest or shortness of breath at rest. Denies palpitations. He however is requiring more oxygen. He is on oxygen supplementation at home. On presentation he required 2 L of oxygen. He is currently requiring 3 L of oxygen. Examination lungs are clear to auscultation bilaterally. Abdomen is soft and nontender. He has 1-2+ peripheral edema bilaterally. Problems: 1. Acute on chronic kidney disease 2. Chronic diastolic heart failure 3. Acute hypoxic respiratory failure; secondary to atelectasis and volume overload. 4. Atrial fibrillation on anticoagulation with Coumadin Plan: -His renal function is improving however he is beginning to develop volume overload. -Case discussed with the nephrology service. We will likely have to accept some level of worsened renal function for this patient. -If respiratory status worsens over the weekend evidence by increasing oxygen requirement all respiratory symptoms, administer Lasix 80 mg IV and then reevaluate. -Follow-up results of nuclear stress test done to evaluate his progressive heart failure symptoms. -Recommend monitoring his respiratory status and renal function through the weekend To determine need for diuretic therapy. -Check daily weights. Patient has been voiding appropriately off diuretic therapy.
[2016-10-16 08:12] LABS: PT 32.9 SEC (9.4-12.5)
--- NOTE | 2016-10-16 10:00 | NUR ---
PT TAKEN TO STRESS TEST AT THIS TIME. NO COMPLAINTS/ISSUES.
--- NOTE | 2016-10-16 10:10 | NUR ---
Physical Therapy: attempted to see pt this morning for treatment. Pt currently KVNG for a pharmalogical stress test. Will follow up as appropriate.
--- NOTE | 2016-10-16 12:33 | PN- Nephrology ---
Assessment/Plan Assessment: 1. CKD stage III secondary to nephrosclerosis and cardiorenal syndrome 2. Acute kidney injury likely secondary to diuretic therapy - improving 3. Chronic congestive heart failure; cardiac evaluation results pending 4. Morbid obesity (BMI >40) Suggestion: 1. Continue to hold diuretics today but if he becomes more hypoxic or if no improvement in his pulmonary status by tomorrow, would give him 1 dose of Lasix 80 mg IV 2. Further cardiac evaluation per Cardiology 3. Monitor intake and output, chemistries daily Subjective Subjective: Patient feels about the same today but certainly no worse. He continues to have dyspnea on exertion. No chest pain. Echocardiogram results noted. ` Cardiac stress test results pending. Serum creatinine down to 2.8 today. Bun down to 49. Lytes ok. I/O: 1070/1550 Objective Vital Signs and I&Os Vital Signs Date Time Temp Pulse Resp B/P B/P Pulse O2 O2 Flow FiO2 Mean Ox Delivery Rate 10/16 1210 96 Nasal 2.0L Cannula 10/16 0630 98.8 62 20 136/80 91 CPAP 10/16 0023 51 93 10/16 0000 BIPAP 10/15 2237 97.6 60 20 130/80 91 Nasal 3.0L Cannula 10/15 2206 72 91 10/15 1600 Nasal 3.0L Cannula 10/15 1400 18 92 Nasal 3.0L Cannula 10/15 1348 98.0 90 20 120/80 98 Intake & Output 10/16 1600 10/16 0400 10/15 1600 10/15 0400 10/14 1600 10/14 0400 Intake Total 0 1070 450 240 800 Output Total 450 900 650 1 300 280 Balance -450 170 -650 449 -60 520 Intake, IV 110 800 Intake, Oral 0 960 450 240 Number 0 Bowel Movements Output, Stool 1 Output, Urine 450 900 650 300 280 Patient 372 lb Weight Physical Exam: General: Well-developed, pleasant, obese white male in no acute distress Skin: No rash or jaundice HEENT: Conjunctivae pink, sclerae anicteric, mucous membranes moist Neck: Without masses or thyromegaly, no supraclavicular or cervical adenopathy Chest: Clear to P&A with poor air entry and diminished breath sounds at bases; left infraclavicular pacemaker Heart: Irregular rhythm without S3 or rub Abdomen: Obese, soft and nontender without palpable masses or organomegaly Extremities: 2+ lower extremity edema without cyanosis Neuro: He is awake, alert and oriented; no focal findings, no asterixis or myoclonus Current Medications: Current Medications Sig/Maria Dolores Start time Last Medication Dose Route Stop Time Status Admin Acetaminophen 1,000 MG .STK-MED ONE 10/15 2112 DC IV 10/15 2113 Acetaminophen 1,000 MG Q6P PRN 10/12 1600 AC 10/15 IV 211 Allopurinol 100 MG Q12 10/12 2200 AC 10/16 PO 114 Alprazolam 0.5 MG ONCE ONE 10/16 0015 DC 10/16 PO 10/16 0016 0107 Cyanocobalamin 1,000 MCG DAILY 10/13 1000 AC 10/16 PO 114 Escitalopram Oxalate 10 MG DAILY 10/13 1000 AC 10/16 PO 1145 Hydromorphone HCl 0.5 MG Q4P PRN 10/12 1600 AC 10/15 IV 1331 Pravastatin Sodium 40 MG DAILY 10/13 1000 AC 10/16 PO 1145 Warfarin Sodium 6 MG COUMADIN 1700 ONE 10/16 1700 AC PO 10/16 1701 Warfarin Sodium 4 MG COUMADIN 1700 ONE 10/15 1700 DC 10/15 PO 10/15 1701 1751 Results Pertinent Lab Results: Laboratory Tests 10/16 10/15 10/15 0720 1312 0840 Chemistry Sodium (137 - 145 mmol/L) 143 143 Potassium (3.5 - 5.1 mmol/L) 3.9 4.1 Chloride (98 - 107 mmol/L) 102 102 Carbon Dioxide (22 - 30 mmol/L) 29 29 Anion Gap (5 - 16) 11 12 BUN (9 - 20 mg/dL) 49 H 52 H Creatinine (0.7 - 1.2 mg/dL) 2.8 H 3.0 H Estimated GFR (>60 ml/min) 22 L 21 L BUN/Creatinine Ratio (7 - 25 %) 17.5 17.3 Coagulation PT (9.4 - 12.5 SEC) 32.9 H INR (0.90 - 1.17) 3.17 H Hematology CBC w Diff NO MAN DIFF REQ WBC (4.8 - 10.8 /CUMM) 5.3 RBC (4.70 - 6.10 /CUMM) 3.57 L Hgb (14.0 - 18.0 G/DL) 10.3 L Hct (42 - 52 %) 32.8 L MCV (80.0 - 94.0 FL) 92.0 MCH (27.0 - 31.0 PG) 28.8 RDW (11.5 - 14.5 %) 19.6 H Plt Count (130 - 400 /CUMM) 134 MPV (7.4 - 10.4 FL) 11.5 H Gran % (42.2 - 75.2 %) 78.4 H Lymphocytes % (20.5 - 51.1 %) 13.2 L Monocytes % (1.7 - 9.3 %) 4.5 Eosinophils % (0 - 5 %) 2.9 Basophils % (0.0 - 2.0 %) 1.0 Absolute Granulocytes (1.4 - 6.5 /CUMM) 4.1 Absolute Lymphocytes (1.2 - 3.4 /CUMM) 0.7 L Absolute Monocytes (0.10 - 0.60 /CUMM) 0.2 Absolute Eosinophils (0.0 - 0.7 /CUMM) 0.2 Absolute Basophils (0.0 - 0.2 /CUMM) 0.1 PUBS MCHC (33.0 - 37.0 G/DL) 31.3 L Urines Ur Random Creatinine (mg/dL) 104.7 Urine Total Volume (600 - 1500 ML/24HR) 850 Urine Creatinine (1.0 - 2.0 g/24HR) 0.9 L Ur Total Protein 24 Hr (42 - 255 mg/24HR) 1683.0 H Ur Sodium 24 Hour (30 - 90 mmol/L) 9 L Ur Potassium 24 Hour (25 - 125 mmol/24H) 17.9 L 05/10 0630 Chemistry Sodium (137 - 145 mmol/L) 144 Potassium (3.5 - 5.1 mmol/L) 4.4 Chloride (98 - 107 mmol/L) 103 Carbon Dioxide (22 - 30 mmol/L) 31 H Anion Gap (5 - 16) 10 BUN (9 - 20 mg/dL) 52 H Creatinine (0.7 - 1.2 mg/dL) 3.1 H Estimated GFR (>60 ml/min) 20 L BUN/Creatinine Ratio (7 - 25 %) 16.8 Magnesium (1.6 - 2.3 mg/dL) 2.1 Coagulation PT (9.4 - 12.5 SEC) 24.8 H INR (0.90 - 1.17) 2.38 H
[2016-10-16 15:33] VITALS: BP 120/80
--- NOTE | 2016-10-16 17:39 | PN- Cardiology ---
Subjective Subjective: * Patient is lying supine and appears to be breathing comfortably although he has noted some shortness of breath through the day. * atrial fibrillation * creatinine is 2.8 Objective Vital Signs and I&Os Vital Signs Date Time Temp Pulse Resp B/P B/P Pulse O2 O2 Flow FiO2 Mean Ox Delivery Rate 10/16 1533 97.8 63 20 120/80 99 10/16 1218 Nasal 2.0L Cannula 10/16 1210 96 Nasal 2.0L Cannula 10/16 0800 Nasal 3.0L Cannula 10/16 0630 98.8 62 20 136/80 91 CPAP 10/16 0023 51 93 10/16 0000 BIPAP 10/15 2237 97.6 60 20 130/80 91 Nasal 3.0L Cannula 10/15 2206 72 91 Intake & Output 10/16 1600 10/16 0800 10/16 0000 10/15 1600 10/15 0800 10/15 0000 Intake Total 120 0 1070 450 Output Total 300 450 900 300 350 1 Balance -180 -450 170 -300 -350 449 Intake, IV 110 Intake, Oral 120 0 960 450 Number 0 Bowel Movements Output, Stool 1 Output, Urine 300 450 900 300 350 Patient 372 lb Weight Physical Exam: General: WD/ morbidly obese male in NAD; alert and oriented x 3 HEENT: NC/ AT, PERRL, EOMI, poor dentition Neck: no JVD, no carotid bruit Heart: regular w/o murmur Lungs: no crackles or wheezing Abdomen: soft, obese, NT, +ve bowel sounds Extremities: 2+ bilateral leg edema Assessment/Plan Assessment/Plan * Continue to hold diuretics and monitor BUN and creatinine. There are questionable pleural effusions on the patient's chest X-ray. A proper, upright PA and lateral film will be of value and is recommended before resuming diuresis since this patient was admitted in the setting of overdiuresis for presumed CHF. Do not change to AP or AP with lateral. * A pharmocologic stress test is in progress and is a two day protocol. Results are pending. Continue telemetry? No
--- NOTE | 2016-10-16 17:40 | NUCLEAR MEDICINE REPORT ---
PERSANTINE STRESS AND RESTING SPECT MYOCARDIAL PERFUSION IMAGING STUDY WITH GATED SPECT IMAGES: CLINICAL INDICATION: Chest pain. PROCEDURE: Regional myocardial perfusion was assessed using a 2 day protocol. Stress images were obtained on 10/15/2016 following the intravenous administration of 48.6 mCi Tc 99m Myoview. Stress consisted of 60 mg Persantine given intravenously. Following the sestamibi injection no aminophylline was given intravenously. Rest images were obtained 10/16/2016 following the intravenous administration of 48.6 mCi Technetium 99m Myoview. Single photon emission tomographic (SPECT) images were obtained. SPECT images were acquired in a 64 x 64 matrix of 64 projections over 180 degrees. These were reconstructed into standard short axis, horizontal and vertical long axis cardiac projections. FINDINGS: The post stress images show the left ventricular chamber to be moderately dilated. There is moderately severe diffusely decreased activity in the inferior wall and the adjacent mid and basal inferoseptal wolfe. The anteroapical wall abnormality extends into the apex. The activity in the other wolfe appears normal. The rest images are not significantly changed from the post stress images. Left ventricular chamber is moderately dilated on the rest images and appear similar in size to the post stress images. The stress images were obtained using a gated SPECT technique, which permits visualization of wall motion and calculation of the left ventricular ejection fraction. Diffuse, but minimal, left ventricular hypokinesis is present. No focal left ventricular wall motion abnormalities are present. The calculated left ventricular ejection fraction is 45% on the stress study. Compared to the previous study dated 03/21/2012, left ventricular chamber appears more dilated on the current study in the perfusion abnormality in the inferior wall appears more severe than mild abnormality presumed the previous study. The inferoseptal wall abnormalities appear new. IMPRESSION: Moderately severe fixed perfusion abnormality is present involving the inferior wall and the adjacent inferoseptal wall, as described above. No regions of reversible ischemia are visualized. The left ventricular chamber is moderately dilated and there is minimal diffuse left ventricular hypokinesis and a minimally depressed left ventricular ejection fraction.
[2016-10-16 22:36] VITALS: BP 112/80
--- NOTE | 2016-10-17 01:00 | NUR ---
PATIENT IS ALERT AND ORIENTED X 3. DENIES CHEST PAIN. + PULSES BP: 112/80, HR:66, TEMP:97.6, RR:20. O2SAT: 94% ON CPAP. PATIENT IS ON 3L OXYGEN VIA NASAL CANNULA DURING THE DAY AND USES CPAP AT NIGHT. TRACE EDEMA TO BILAT LOWER EXTREMITIES. PSORIASIS TO BLE. ALPS ON. EXERTIONAL SHROTNESS OF BREATH NOTED. WILL CONTINUE TO MONITOR
--- NOTE | 2016-10-17 07:49 | PN- Housestaff ---
KATIA BIANCHI,SAMANTHA 10/17/16 0748: Subjective Follow-up For: ROXIE on CKD Stress test Subjective: I saw and examined the patient today morning He is doing well, offers no concerns. No significant ovenight events. still had some shortness of breath, feeling sleepy although on CPAP overnight. No chest pain, dizziness, able to walk to the rest room. Review of Systems Constitutional: Reports: see HPI. Comments: ROS negative except the above. Objective Last 24 Hrs of Vital Signs/I&O Vital Signs Date Time Temp Pulse Resp B/P B/P Pulse O2 O2 Flow FiO2 Mean Ox Delivery Rate 10/17 0042 53 93 10/17 0000 94 CPAP 3.0L 10/16 2236 97.6 66 20 112/80 94 CPAP 10/16 2155 57 92 10/16 1600 Nasal 3.0L Cannula 10/16 1533 97.8 63 20 120/80 99 10/16 1218 Nasal 2.0L Cannula 10/16 1210 96 Nasal 2.0L Cannula 10/16 0800 Nasal 3.0L Cannula Intake & Output 10/17 0800 10/17 0000 10/16 1600 Intake Total 450 120 Output Total 1175 300 Balance -725 -180 Intake, Oral 450 120 Output, Urine 1175 300 Physical Exam General Appearance: Alert, Oriented X3, Cooperative, No Acute Distress Skin: No Rashes, No Breakdown HEENT: Atraumatic, PERRLA, EOMI Neck: Supple, No JVD Cardiovascular: Normal S1, Normal S2, No Murmurs Lungs: Clear to Auscultation, Normal Air Movement Abdomen: Normal Bowel Sounds, Soft, No Tenderness Neurological: Normal Gait, Normal Speech, Strength at 5/5 X4 Ext, Normal Tone, Sensation Intact Extremities: No Clubbing, No Cyanosis, 2+ edema present Vascular: Pulses Symmetrical Current Medications: Current Medications Sig/Maria Dolores Start time Last Medication Dose Route Stop Time Status Admin Acetaminophen 1,000 MG Q6P PRN 10/13 1599 AC 10/15 IV 2116 Allopurinol 100 MG Q12 10/12 2199 AC 10/16 PO 2118 Cyanocobalamin 1,000 MCG DAILY 10/13 1000 AC 10/16 PO 114 Escitalopram Oxalate 10 MG DAILY 10/13 999 AC 10/16 PO 114 Hydromorphone HCl 0.5 MG Q4P PRN 10/12 1600 AC 10/17 IV 0630 Melatonin 3 MG AT BEDTIME 10/16 2200 AC 10/16 PO 2119 Patient Medication 1 ED .STK-MED ONE 10/16 1357 DC Teaching ED 10/16 1358 Pravastatin Sodium 40 MG DAILY 10/13 1000 AC 10/16 PO 1145 Warfarin Sodium 6 MG COUMADIN 1700 ONE 10/16 1700 DC 10/16 PO 10/16 1701 1809 Last 24 Hrs of Lab/Kyle Results Last 24 Hrs of Labs/Mics: Laboratory Tests 10/17/16 0710: Anion Gap 9, Estimated GFR 24 L, BUN/Creatinine Ratio 18.8, PT 34.4 H, INR 3.32 H Lines/Diet/Fluids Lines: peripheral lines Assessment/Plan Assessment: Patient is a 71 YO M with PMH signficant for Gout, AF (on comadin), 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 Plan ROXIE on CKD * Secondary to overdiuresis with lasix due to decompensated heart failure * Continue holding lasix, nephrotoxic agents, ACEI -- Cr today is 2.6. * 24hr urine Cr, protein, BUN indicate it could be secondary to heart failure/ nephrosclerosis form HTN. * Stage III CKD. * Outpatient plan for renal replacement therapy follow up * Nephro consulted - appreciate their recommendations. Congestive heart failure with preserved EF * Recent ECHO on jun 23 shows EF 55%, moderate right LVH, mild Pul HTN * Not in acute decompensated failure now as already well diuresed. * Stopped Ropinorole as associated with increased swelling of the leg. * Echocardiogram - shows EF 60% * Stress test shows a fixed defect still holding diuretics. * CXR tomorrow to revaluate for fluid overload - if shows effusions we will give a single dose of lasix 80mg IV once. * Probably HTN / unclear factors --> concentric LVH --> left atrial enlargement --> pul HTN --> right ventricular enlargement. Chronic stable conditions Atrial Fibrillation on coumadin - dosed with warfarin 2mg today, INR supratherapeutic 3.5 ANTONELLA on CPAP. Gout - on allopurinol - dose reduced to 100mg BID (from 300mg BID). DVT prophylaxis * on coumadin Code status * Full Code Problem List: 1. Benign essential hypertension 2. Obstructive sleep apnea syndrome 3. Dyspnea 4. Jufid-hu-eohtyng kidney injury 5. Gout Pain Ratin Pain Location: n/a Pain Goal: Pain 4 or less Pain Plan: tylenol prn Tomorrow's Labs & Rationales: bep to monitor renal function Consulting Request: Consulting Specialty: Nephrology JUSTIN BIANCHI,AMIR 10/17/16 1044: Attending MD Review Statement Attending Statement Attending MD Statement: examined this patient, discuss w/resident/PA/NECKTIES PAINTER, agreed w/resident/PA/NECKTIES PAINTER, reviewed EMR data (avail), discussed with nursing Attending Assessment/Plan: Pt was seen and examined. Denies CP, however, reports JOHNSON. Still requiring O2. Repeat CXR to pleural effusion. Urinating OK, Cr improving. INR=3.32. Cont to check daily weight, monitor I&O, reduce Coumadin and recheck INR. Rest of the plan as per resident's note
[2016-10-17 07:55] VITALS: BP 110/72
[2016-10-17 08:28] LABS: PT 34.4 SEC (9.4-12.5)
[2016-10-17 14:35] VITALS: BP 120/88
--- NOTE | 2016-10-17 15:38 | RADIOLOGY REPORT ---
EXAMINATION: XR CHEST CLINICAL INFORMATION: Exertional shortness of breath. Acute on chronic renal disease. Evaluate for fluid overload. COMPARISON: CXR from 09/25/2014, 06/16/2016 and 10/15/2016 TECHNIQUE: 2 views of the chest were obtained. FINDINGS: Patient has a large body habitus. The lungs are hypoinflated -- resulting in crowding of bronchovascular structures in the bases. Cardiac silhouette and pulmonary vessels are chronically enlarged. The uncoiled atherosclerotic aortic arch appears ectatic. The right atrial and ventricular pacing leads are in their expected positions. No acute interstitial pulmonary edema. Small bilateral pleural effusions are present. The lateral radiograph shows increased opacity in the retrocardiac region; this appears to represent crowding of the lower lobe vessels within the hypoinflated lower lobes, and there is likely mild atelectasis, as well. No acute findings within the degenerated, hyperkyphotic thoracic spine. IMPRESSION: 1. Cardiomegaly and chronically engorged pulmonary vessels without acute interstitial edema. 2. Small bilateral pleural effusions remain similar in size compared to 10/15/2016.
[2016-10-17 22:38] VITALS: BP 124/78
[2016-10-18 07:31] VITALS: BP 110/70
[2016-10-18 08:18] LABS: PT 36.4 SEC (9.4-12.5)
--- NOTE | 2016-10-18 09:00 | PN- Housestaff ---
GREGOR BIANCHI,DINESH 10/18/16 0900: Subjective Follow-up For: ROXIE on CKD leg swelling Complaints: leg swelling worse today Subjective: I followed up and examined the patient today. He is resting comfortably in his bed, not in distress. He endorses worsening of leg swellings, although he is wearing compression stockings. Vitals have been stable overnight, no other events noted. Review of Systems Constitutional: Reports: see HPI. Objective Last 24 Hrs of Vital Signs/I&O Vital Signs Date Time Temp Pulse Resp B/P B/P Pulse O2 O2 Flow FiO2 Mean Ox Delivery Rate 10/18 2132 97.6 65 18 110/70 93 Nasal 3.0L Cannula 10/18 1814 116/70 10/18 1600 Nasal 3.0L Cannula 10/18 1415 98.2 91 20 120/70 97 10/18 0800 94 Nasal 3.0L Cannula 10/18 0731 97.4 82 20 110/70 92 Nasal 4.0L Cannula 10/18 0558 74 92 10/18 0000 CPAP 3.0L 10/17 2238 97.7 78 20 124/78 92 Nasal Cannula Intake & Output 10/18 1600 10/18 0800 10/18 0000 Intake Total 600 200 100 Output Total 200 1025 Balance 400 -825 100 Intake, IV 120 Intake, Oral 480 200 100 Output, Urine 200 1025 Physical Exam General Appearance: Alert, Oriented X3, Cooperative, No Acute Distress, morbidly obese Other Physical Findings: Skin: No Rashes, No Breakdown HEENT: Atraumatic, PERRLA, EOMI Neck: Supple, No JVD Cardiovascular: Normal S1, Normal S2, No Murmurs Lungs: Clear to Auscultation, Normal Air Movement Abdomen: Normal Bowel Sounds, Soft, No Tenderness Neurological: Normal Gait, grossly intact Extremities: No Clubbing, No Cyanosis, 2+ edema present, wearing compression stocking Vascular: Pulses Symmetrical Current Medications: Current Medications Sig/Maria Dolores Start time Last Medication Dose Route Stop Time Status Admin Acetaminophen 1,000 MG Q6P PRN 10/12 1600 AC 10/18 IV 1302 Allopurinol 100 MG Q12 10/120 AC 10/18 PO 2058 Cyanocobalamin 1,000 MCG DAILY 10/13 999 AC 10/18 PO 910 Escitalopram Oxalate 10 MG DAILY 10/13 999 AC 10/18 PO 09 Furosemide 80 MG ONCE ONE 10/18 1700 DC 10/18 IV 10/18 1701 1808 Hydromorphone HCl 0.5 MG Q4P PRN 10/12 1600 AC 10/18 IV 1952 Melatonin 3 MG AT BEDTIME 10/16 2200 AC 10/18 PO 2058 Pravastatin Sodium 40 MG DAILY 10/13 1000 AC 10/18 PO 0911 Last 24 Hrs of Lab/Kyle Results Last 24 Hrs of Labs/Mics: Laboratory Tests 10/18/16 0650: Anion Gap 9, Estimated GFR 24 L, BUN/Creatinine Ratio 18.5, PT 36.4 H, INR 3.51 H Assessment/Plan Assessment: Patient is a 71 YO M with PMH signficant for Gout, AF (on comadin), 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 Plan ROXIE on CKD * Secondary to overdiuresis with lasix due to decompensated heart failure * Continue holding lasix, nephrotoxic agents, ACEI -- Cr today is 2.6 again, better than what he came in with (3.3) * 24hr urine Cr, protein, BUN indicate it could be secondary to heart failure/ nephrosclerosis form HTN. * Stage III CKD. * Outpatient plan for renal replacement therapy follow up * Nephro consulted - appreciate their recommendations, OK to give Lasix once if needed for his CHF/edema at this progress. Congestive heart failure with preserved EF * Recent ECHO on jun 23 shows EF 55%, moderate right LVH, mild Pul HTN * Not in acute decompensated failure now as already well diuresed. * Stopped Ropinorole as associated with increased swelling of the leg. * Echocardiogram - shows EF 60% * Stress test shows a fixed defect still holding diuretics. * CXR shows chronic interstitial edema, and persistent small bilateral pleural effusion. He is to receive 80 mg of IV Lasix once today. Chronic stable conditions Atrial Fibrillation on coumadin - HELD warfarin today, INR supratherapeutic 3.51 ANTONELLA on CPAP. Gout - on allopurinol - dose reduced to 100mg BID (from 300mg BID). DVT prophylaxis * on coumadin (held today) Code status * Full Code Problem List: 1. Viqwu-hb-cuxmvhy kidney injury 2. CHF (congestive heart failure) 3. Obesity Pain Ratin Pain Location: - Pain Goal: Pain 4 or less Pain Plan: prn Tomorrow's Labs & Rationales: INR, BEP to dose coumadin and to f/u lytes Consulting Request: Consulting Specialty: Nephrology JUSTIN BIANCHI,AMIR 10/18/16 1116: Attending MD Review Statement Attending Statement Attending MD Statement: examined this patient, discuss w/resident/PA/MARINE HABITAT RESOURCE SPECIALIST, agreed w/resident/PA/MARINE HABITAT RESOURCE SPECIALIST, reviewed EMR data (avail), discussed with nursing Attending Assessment/Plan: Pt was seen and evaluated. Still requiring O2. CXR c/w small b/l pleural effusion. Consider one dose of IV Lasix as recommended by Renal. Cr stable, Hold coumadin tonight. Rest of the plan as per resident's note
[2016-10-18 14:15] VITALS: BP 120/70
[2016-10-18 18:14] VITALS: BP 116/70
[2016-10-18 21:32] VITALS: BP 110/70
[2016-10-19 06:48] VITALS: BP 116/70
--- NOTE | 2016-10-19 07:23 | PN- Housestaff ---
KATIA BIANCHI,SAMANTHA 10/19/16 0723: Subjective Follow-up For: ROXIE on CKD Subjective: I saw and examined the patient today morning He is sitting in his bed, no overnight events, on CPAP. He deies any chest pain, mildly short of breath. Able to walk around. He feels lack of appetite today. otherwise on concerns. He is off the oxygen during my second encounter as the cord is not long enough, placed on a longer cord. we will obtain ambulatory saturations today. Review of Systems Constitutional: Reports: see HPI. Comments: ROS negative except the above. Objective Last 24 Hrs of Vital Signs/I&O Vital Signs Date Time Temp Pulse Resp B/P B/P Pulse O2 O2 Flow FiO2 Mean Ox Delivery Rate 10/19 0648 98.4 75 18 116/70 93 CPAP 10/19 0136 58 93 10/19 0000 93 Nasal 3.0L Cannula 10/18 2132 97.6 65 18 110/70 93 Nasal 3.0L Cannula 10/18 1814 116/70 10/18 1600 Nasal 3.0L Cannula 10/18 1415 98.2 91 20 120/70 97 10/18 0800 94 Nasal 3.0L Cannula 10/18 0731 97.4 82 20 110/70 92 Nasal 4.0L Cannula Intake & Output 10/19 0800 10/19 0000 10/18 1600 Intake Total 700 600 Output Total 600 200 Balance 100 400 Intake, IV 120 Intake, Oral 700 480 Output, Urine 600 200 Physical Exam General Appearance: Alert, Oriented X3, Cooperative, No Acute Distress Skin: No Rashes, No Breakdown HEENT: Atraumatic, PERRLA, EOMI Neck: Supple Cardiovascular: Normal S1, Normal S2, No Murmurs Lungs: Clear to Auscultation, Normal Air Movement Abdomen: Normal Bowel Sounds, No Tenderness, distended Neurological: Normal Speech, Strength at 5/5 X4 Ext, Normal Tone, Sensation Intact, Cranial Nerves 3-12 NL Extremities: No Clubbing, No Cyanosis, 4+ pitting edema present Vascular: Normal Pulses, Pulses Symmetrical Current Medications: Current Medications Sig/Maria Dolores Start time Last Medication Dose Route Stop Time Status Admin Acetaminophen 1,000 MG Q6P PRN 10/12 1600 AC 10/18 IV 1302 Allopurinol 100 MG Q12 10/12 2199 AC 10/18 PO 2058 Cyanocobalamin 1,000 MCG DAILY 10/13 1000 AC 10/18 PO 910 Escitalopram Oxalate 10 MG DAILY 10/13 1000 AC 10/18 PO 910 Furosemide 80 MG ONCE ONE 10/18 1700 DC 10/18 IV 10/18 1701 1808 Hydromorphone HCl 0.5 MG Q4P PRN 10/12 1600 AC 10/18 IV 195 Melatonin 3 MG AT BEDTIME 10/16 2200 AC 10/18 PO 2058 Pravastatin Sodium 40 MG DAILY 10/13 1000 AC 10/18 PO 910 Last 24 Hrs of Lab/Kyle Results Last 24 Hrs of Labs/Mics: Laboratory Tests 10/19/16 0715: Anion Gap 11, Estimated GFR 24 L, BUN/Creatinine Ratio 18.1, PT 29.6 H, INR 2.85 H Lines/Diet/Fluids Lines: peripheral lines Assessment/Plan Assessment: Patient is a 71 YO M with PMH signficant for Gout, AF (on comadin), 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 Plan ROXIE on CKD * Secondary to overdiuresis with lasix due to decompensated heart failure * Cr improved to 2.6 after a single IV dose of lasix. * We will obtain nephro input regarding lasix. Congestive heart failure with preserved EF * Stable ECHO with fixed defect in pharmacological stress test. * No diuretics needed at this point as stable cardiac stand point of view. * Received a single dose of IV lasix yesterday although the CXR findings show pleural effusions similar to previous day. Chronic stable conditions Atrial Fibrillation on coumadin - warfarin 4mg today. INR 2.85 ANTONELLA on CPAP. Gout - on allopurinol - dose reduced to 100mg BID (from 300mg BID). DVT prophylaxis * on coumadin (held today) Code status * Full Code Problem List: 1. Ocpxk-cg-xhnxyzo kidney injury 2. CHF (congestive heart failure) 3. Supratherapeutic INR Pain Ratin Pain Location: n/a Pain Goal: Pain 4 or less Pain Plan: tylenol prn Tomorrow's Labs & Rationales: bep to monitor Cr Consulting Request: Consulting Specialty: Nephrology GREYSON MORAES MD 10/19/16 1230: Attending MD Review Statement Attending Statement Attending MD Statement: examined this patient, discuss w/resident/PA/CHAIRMAN PRESIDENT AND CHIEF EXECUTIVE OFFICER, agreed w/resident/PA/CHAIRMAN PRESIDENT AND CHIEF EXECUTIVE OFFICER, reviewed EMR data (avail), discussed with nursing, discussed with case mgmt, amended to note Attending Assessment/Plan: Patient seen and examined. Jovial spirits. Not in any distress. Denies shortness of breath. Denies chest pain. He was found off oxygen today as he was attempting to put on his stockings. Pulse oximetry was checked and he was saturating 84% on room air. He denied any symptoms. Creatinine is stable at 2.6. Examination lungs are clear bilaterally. Abdomen soft and nontender. He has 2+ bilateral pedal edema. Problems: 1. Cardiomyopathy; nuclear stress test this admission shows moderately severe fixed perfusion abnormality present in the inferior wall and adjacent inferior septal wall. This finding is more severe than that previously noted back in 2011. Ejection fraction is completed as 45%. It is noted that he 2011 the ejection fraction was estimated at 30% GEN. Echocardiogram in June and during this admission shows EF of 60%. 2. Chronic kidney disease stage III. 3. Atrial fibrillation on and correlation Coumadin. 4. Acute hypoxic respiratory failure. Plan: -Follow-up with the nephrology service regarding resuming diuretic therapy with Lasix. -Once resumed and if patient is stable he may be discharged home. He will require oxygen supplementation home upon discharge. -Patient will require close follow-up with the renal service as an outpatient for monitoring of his renal status. -Patient is on Coumadin 4 mg daily Wednesday and Wednesday thousand Wednesday and 60 mg daily she is a on Wednesday as an outpatient. INR is supratherapeutic him [facility]. He has been supratherapeutic for the past few days. Recommend dosing Coumadin at 4 mg today with close monitoring. -Follow-up with the cardiology service regarding significance of stress test findings.
[2016-10-19 08:21] LABS: PT 29.6 SEC (9.4-12.5)
--- NOTE | 2016-10-19 12:09 | PN- Cardiology ---
Subjective Subjective: * Breathing is improved with less leg swelling. * creatinine is 2.6 * INR 2.85 * No ischemia on stress test. Objective Vital Signs and I&Os Vital Signs Date Time Temp Pulse Resp B/P B/P Pulse O2 O2 Flow FiO2 Mean Ox Delivery Rate 10/19 0648 98.4 75 18 116/70 93 CPAP 10/19 0136 58 93 / 0000 93 Nasal 3.0L Cannula 10/18 2132 97.6 65 18 110/70 93 Nasal 3.0L Cannula 10/18 1814 116/70 10/18 1600 Nasal 3.0L Cannula 10/18 1415 98.2 91 20 120/70 97 Intake & Output 10/19 1600 10/19 0800 10/19 0000 10/18 1600 10/18 0800 10/18 0000 Intake Total 700 600 200 100 Output Total 600 825 338 6854 Balance -600 100 400 -825 100 Intake, IV 120 Intake, Oral 700 480 200 100 Output, Urine [phone] [id number] Physical Exam: General: WD/ morbidly obese male in NAD; alert and oriented x 3 Neck: no JVD, no carotid bruit Heart: regular w/o murmur Lungs: no crackles or wheezing Extremities: 1+ bilateral leg edema Assessment/Plan Assessment/Plan * There is no edema on the patient's chest X-ray and his lungs are clear. His shortness of breath is related to his obesity. I would not resume Lasix at this time since it results in overdiuresis, renal insufficiency and consequent fluid buildup. He has dependent dedema due to obesisty. * No ischemia on stress testing. His fixed inferior defect is likely artifactual due to his obesity. * Heart rate is regular due to his paced rhythm but the patient is in atrial fibrillation. He needs to continue on anticoagulation. His goal INR is 2-2.5. * Okay for discharge from a cardiac standpoint with follow up in the office in one week. Continue telemetry? No
[2016-10-19 14:43] VITALS: BP 124/65
[2016-10-19] MEDS ORDERED: ALLOPURINOL100 M1 PO (15:40)
[2016-10-19] MEDS ORDERED: COUMADIN4 M1 PO (15:40)
[2016-10-19 22:33] VITALS: BP 114/60
--- NOTE | 2016-10-20 05:22 | NUR ---
AT 0510 PT C/O GENERALIZED "ALL OVER" PAIN 01/14. PER PT IV TYLENOL DOES NOT HELP. NERY ETIENNE MD, ONE TIME ORDER MORPHINE 1MG IV GIVEN. WILL MONITOR
[2016-10-20 06:34] VITALS: BP 132/78
--- NOTE | 2016-10-20 07:24 | PN- Housestaff ---
KATIA BIANCHI,SAMANTHA 10/20/16 0723: Subjective Follow-up For: ROXIE on CKD Subjective: I saw and examined the patient today morning She is lying in the bed, still on oxygen. Overnight had pain in his shoulders, legs, back received a dose of morphine IV. Reports he had these pains for a while. No fever, chills. Review of Systems Constitutional: Reports: see HPI. Comments: ROS negative except the above. Objective Last 24 Hrs of Vital Signs/I&O Vital Signs Date Time Temp Pulse Resp B/P B/P Pulse O2 O2 Flow FiO2 Mean Ox Delivery Rate 10/20 0634 98.2 95 18 132/78 93 CPAP 10/20 0000 CPAP 10/19 2356 62 92 10/19 2233 97.8 77 19 114/60 90 Nasal Cannula 10/19 2221 68 93 10/19 1600 93 Nasal 3.0L Cannula 10/19 1443 98.0 88 19 124/65 93 10/19 1000 94 Nasal 3.0L Cannula Intake & Output 10/20 0800 10/20 0000 10/19 1600 Intake Total 110 600 750 Output Total 300 550 700 Balance -190 50 50 Intake, IV 10 Intake, Oral 100 600 750 Number 1 Bowel Movements Output, Urine 300 550 700 Physical Exam General Appearance: Alert, Oriented X3, Cooperative Skin: No Rashes, No Breakdown HEENT: Atraumatic, PERRLA, EOMI Neck: Supple Cardiovascular: Normal S1, Normal S2 Current Medications: Current Medications Sig/Maria Dolores Start time Last Medication Dose Route Stop Time Status Admin Acetaminophen 1,000 MG .STK-MED ONE 10/19 1905 DC IV 10/19 1906 Acetaminophen 1,000 MG Q6P PRN 10/12 1600 AC 10/19 IV 190 Allopurinol 100 MG Q12 10/12 2200 AC 10/19 PO 2049 Cyanocobalamin 1,000 MCG DAILY 10/13 1000 AC 10/19 PO 112 Escitalopram Oxalate 10 MG DAILY 10/13 1000 AC 10/19 PO 112 Hydromorphone HCl 0.5 MG Q4P PRN 10/12 1600 DC 10/19 IV 1407 Melatonin 3 MG AT BEDTIME 10/16 2200 AC 10/19 PO 205 Morphine Sulfate 1 MG ONCE ONE 10/20 514 DC 10/20 IV 10/20 Morphine Sulfate 2 MG ONCE ONE 10/19 2029 DC 10/19 IV 10/19 Patient Medication 1 UNIT 1700 10/19 1700 PR 10/19 Teaching ED 10/19 1701 1611 Patient Medication 1 ED .STK-MED ONE 10/19 1354 PR Teaching ED 10/19 1355 Pravastatin Sodium 40 MG DAILY 10/13 1000 AC 10/19 PO 1127 Warfarin Sodium 4 MG COUMADIN 1700 10/19 1700 DC 10/19 PO 10/19 2359 1605 Assessment/Plan Assessment: Patient is a 71 YO M with H signficant for Gout, AF (on comadin), 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 Plan ROXIE on CKD * Secondary to overdiuresis with lasix due to decompensated heart failure * Cr improved to 2.7 * We will obtain nephro input regarding lasix. Congestive heart failure with preserved EF * Stable ECHO with fixed defect in pharmacological stress test involving inferior & inferoseptal. * Still on oxygen - we will discharge with oxygen. * No diuretics needed at this point as stable cardiac stand point of view. Home oxygen Patient has been desaturating to 80's on room air, unable to taper from admission. Although his lungs are clear, he is very congested. Oxygen requirement at rest - 3L, with exertion - 4L. Discharged with home oxygen today. Chronic stable conditions Atrial Fibrillation on coumadin - Warfarin changed to 4mg daily -- as INR supratherapeutic on home doses. ANTONELLA on CPAP. Gout - on allopurinol - dose reduced to 100mg BID (from 300mg BID). DVT prophylaxis * On coumadin 4mg daily. Code status * Full Code Problem List: 1. Whnzn-yp-emuyrhl kidney injury Pain Ratin Pain Location: n/a Pain Goal: Pain 4 or less Pain Plan: tylenol prn Tomorrow's Labs & Rationales: NONE Consulting Request: Consulting Specialty: Nephrology GREYSON MORAES MD 10/20/16 1254: Attending MD Review Statement Attending Statement Attending MD Statement: examined this patient, discuss w/resident/PA/MOMD TEACHER, agreed w/resident/PA/MOMD TEACHER, reviewed EMR data (avail), discussed with nursing, discussed with case mgmt, amended to note Attending Assessment/Plan: Patient seen and examined. Lying comfortably in bed and not in any acute distress. No issues overnight reported by nursing staff. He remained stable on oxygen supplementation. Continues to complain of dyspnea with wmvk-vm-yvxnkchj exertion. He reports this is no change from his recent baseline. On examination lungs remain clear bilaterally. He has no jugular venous distention. Abdomen is soft and nontender. Recommendations: - Cardiology follow-up appreciated and comment regarding stress test findings noted. - The cardiology service is recommending not discharging the patient on Lasix therapy to avoid worsening his renal function. REM his hospital stay hasn't required a dose of Lasix 8 mg over the weekend due to postsurgical function. Chest x-ray shows no events volume overload just evidence of vascular congestion. -He will be discharged home today on home oxygen. He will follow-up with the nephrology service and cardiology service as an outpatient. We will hold off diuretic therapy for now unless otherwise recommended by the nephrology service.
[2016-10-20 08:52] LABS: PT 30.6 SEC (9.4-12.5)
--- NOTE | 2016-10-20 11:42 | NUR ---
AMBULATORY SATS RA 92% REST 84% AMBUL 3L 93% REST 86% AMBUL 4L 95% REST 90% AMBUL PT IS VERY DYSPNIC WITH AMBULATION EVEN ON THE 4L NC.
[2016-10-20 12:06] VITALS: BP 125/82
[2016-10-20 14:35] VITALS: BP 120/70
--- NOTE | 2016-10-20 15:44 | PN- Cardiology ---
Subjective Subjective: * No shortness of breath at rest. * creatinine 2.7 * INR is elevated to 2.95 Objective Vital Signs and I&Os Vital Signs Date Time Temp Pulse Resp B/P B/P Pulse O2 O2 Flow FiO2 Mean Ox Delivery Rate 10/20 1435 98.2 88 18 120/70 98 10/20 1206 98.7 88 20 125/82 98 10/20 0634 98.2 95 18 132/78 93 CPAP 10/20 0000 CPAP 10/19 2356 62 92 10/19 2233 97.8 77 19 114/60 90 Nasal Cannula 10/19 2221 68 93 10/19 1600 93 Nasal 3.0L Cannula Intake & Output 10/20 1600 10/20 0800 10/20 0000 10/19 1600 10/19 0800 10/19 0000 Intake Total 110 600 750 700 Output Total 300 550 700 600 600 Balance -190 50 50 -600 100 Intake, IV 10 Intake, Oral 100 600 750 700 Number 1 Bowel Movements Output, Urine 300 550 700 600 600 Physical Exam: General: WD/ morbidly obese male in NAD; alert and oriented x 3 Neck: no JVD, no carotid bruit Heart: regular w/o murmur Lungs: no crackles or wheezing Extremities: 1+ bilateral leg edema Assessment/Plan Assessment/Plan * There is no edema on the patient's chest X-ray and his lungs are clear. His shortness of breath is related to his obesity. I would not resume Lasix at this time since it results in overdiuresis, renal insufficiency and consequent fluid buildup. He has dependent edema due to obesity. * No ischemia on stress testing. His fixed inferior defect is likely artifactual due to his obesity. * Heart rate is regular due to his paced rhythm but the patient is in atrial fibrillation. He needs to continue on anticoagulation. His goal INR is 2-2.5. * Okay for discharge from a cardiac standpoint with follow up in the office in one week. Continue telemetry? No
--- NOTE | 2016-10-20 20:29 | Discharge Summary ---
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 Plan ROXIE on CKD (3.3 from 2.7) Secondary to overdiuresis with lasix due to decompensated heart failure. He was on lasix 80mg AM and 40mg PM daily (120mg). Intially stopped diuretics and resuscitated with 2L of fluids. Cr improved to 2.7 by discharge. Discontinued lasix at discharge. Congestive heart failure with preserved EF As symptoms suggest worsening of heart failure, underwent stress test in the hospital. Stable ECHO with fixed defect in pharmacological stress test involving inferior & inferoseptal - presumed artifact secondary to obesity. Apparently it was worse than the previous defect. No diuretics needed at this point as stable cardiac stand point of view - Discontinued lasix at discharge. ANTONELLA on CPAP - discharged with home oxygen Patient has been desaturating to 80's on room air, unable to taper from admission. Although his lungs are clear - presumably dyspnea related to his obesity. Oxygen requirement at rest - 3L, with exertion - 4L. Discharged with home oxygen today. Atrial Fibrillation He was on coumadin - on 4mg and 6mg (on wed, wed) initially. Warfarin changed to 4mg daily -- as INR supratherapeutic on home doses. Goal INR 2-2.5. Gout He was on allopurinol 300mg BID, reduced to 100mg BID due to CKD. DVT prophylaxis * On coumadin 4mg daily. Code status * Full Code Complications: None Allergies: Coded Allergies: Phenothiazines (Mild, OCULOGYRIC 11/15/15) Iodinated Contrast Media - Oral and (IODINATED CONTRAST MEDIA - IV DYE) ( URTICARIA 11/15/15) Uncoded Allergies: SOMATADINE (Intermediate, DOSE RELATED- GETS HIVES 02/08/12) Significant Procedures: Persantine stress test EXAM TYPE: NUC - MYOCARDIAL PERFUSION IMAGING PERSANTINE STRESS AND RESTING SPECT MYOCARDIAL PERFUSION IMAGING STUDY WITH GATED SPECT IMAGES: CLINICAL INDICATION: Chest pain. PROCEDURE: Regional myocardial perfusion was assessed using a 2 day protocol. Stress images were obtained on 10/15/2016 following the intravenous administration of 48.6 mCi Tc 99m Myoview. Stress consisted of 60 mg Persantine given intravenously. Following the sestamibi injection no aminophylline was given intravenously. Rest images were obtained 10/16/2016 following the intravenous administration of 48.6 mCi Technetium 99m Myoview. Single photon emission tomographic (SPECT) images were obtained. SPECT images were acquired in a 64 x 64 matrix of 64 projections over 180 degrees. These were reconstructed into standard short axis, horizontal and vertical long axis cardiac projections. FINDINGS: The post stress images show the left ventricular chamber to be moderately dilated. There is moderately severe diffusely decreased activity in the inferior wall and the adjacent mid and basal inferoseptal wolfe. The anteroapical wall abnormality extends into the apex. The activity in the other wolfe appears normal. The rest images are not significantly changed from the post stress images. Left ventricular chamber is moderately dilated on the rest images and appear similar in size to the post stress images. The stress images were obtained using a gated SPECT technique, which permits visualization of wall motion and calculation of the left ventricular ejection fraction. Diffuse, but minimal, left ventricular hypokinesis is present. No focal left ventricular wall motion abnormalities are present. The calculated left ventricular ejection fraction is 45% on the stress study. Compared to the previous study dated 03/21/2012, left ventricular chamber appears more dilated on the current study in the perfusion abnormality in the inferior wall appears more severe than mild abnormality presumed the previous study. The inferoseptal wall abnormalities appear new. IMPRESSION: Moderately severe fixed perfusion abnormality is present involving the inferior wall and the adjacent inferoseptal wall, as described above. No regions of reversible ischemia are visualized. The left ventricular chamber is moderately dilated and there is minimal diffuse left ventricular hypokinesis and a minimally depressed left ventricular ejection fraction. Pertinent Lab Results: As above. Disposition Summary Disposition Principal Diagnosis: ROXIE on CKD Additional Diagnosis: CHF with preserved EF ANTONELLA with CPAP - discharged with home oxygen Atrial Fibrillation with warfarin Gout Discharge Disposition: home or self care Discharge Instructions General Discharge Information Code Status: Full Code Patient's Diet: Heart healthy diet Patient's Activity: Activity as tolerated Follow-Up Instructions/Appts: Please follow up with your PCP () in a week Please follow up with your [employer] in a week Please follow up with in a month Medications at Discharge Discharge Medications: Stop taking the following medications: Allopurinol (Allopurinol) 300 MG TABLET ORAL DAILY Qty = 135 Allopurinol (Zyloprim) 300 MG TABLET ORAL AT BEDTIME Qty = 15 Furosemide (Lasix) 80 MG TABLET ORAL DAILY Potassium Chloride (Potassium Chloride) 20 MEQ TAB.ER.PRT ORAL EVERY 48 HOURS ( Every 2 days) Warfarin Sodium (Coumadin) 4 MG TABLET ORAL [facility] Warfarin Sodium (Coumadin) 6 MG TABLET ORAL [facility] Ropinirole Hydrochloride (Requip) 0.25 MG TABLET ORAL TWICE DAILY Qty = 180 Potassium Chloride (Potassium Chloride) 20 MEQ TAB.ER.PRT ORAL EVERY 48 HOURS ( Every 2 days) Furosemide (Lasix) 40 MG TABLET ORAL Every night Continue taking these medications: Pravastatin Sodium (Pravachol) 40 MG TABLET 1 Tablet ORAL DAILY Comments: Last Taken: 10/20/16 Time: 9:00 AM Escitalopram Oxalate (Escitalopram Oxalate) 10 MG TABLET 1 Tablet ORAL DAILY Qty = 30 Comments: Last Taken: 10/20/16 Time: 9:00 AM Cyanocobalamin (Vitamin B-12) 1,000 MCG TABLET 1 Tablet ORAL DAILY Comments: Last Taken: 10/20/16 Time: 9:00 AM Start taking the following new medications: Allopurinol (Allopurinol) 100 MG TABLET 100 Milligram ORAL EVERY 12 HOURS Qty = 30 No Refills Comments: Last Taken: 10/20/16 Time: 9:00 AM Warfarin Sodium (Coumadin) 4 MG TABLET 1 Tablet ORAL DAILY Qty = 30 No Refills Comments: Last Taken: 10/19/16 Time: 4:00 PM Copies To: JASSON BIACNHI,JACKY Mckeon; DAWN BIANCHI,IBRAHIMA MEMBRENO MD PhD,JACKY Gomez Attending MD Review Statement Documenting Attending: GREYSON MORAES M.D Other Findings: I have reviewed the discharge summary.
== END 2016-10-20 17:40 | disposition home health service (06) | DRG 682 ==
LOC: ERH 11:42 → 2NA 15:07 → ERHI 15:07 → ENRESERV 10-13 10:30 → CANRESERV 10-13 10:30 → ENRESERV 10-13 17:38 → 2NA 10-13 19:20 → ENPENDDIS 10-20 11:16 → 2NA 10-20 17:40
PROVIDERS: Internal Medicine; Internal Medicine Hematology & Oncology; Physician Assistant; Preventive Medicine Public Health & General Preventive Medicine; ADMIT Internal Medicine
DX: N17.9 Acute kidney failure, unspecified (principal); J96.01 Acute respiratory failure with hypoxia; I13.0 Hypertensive heart and chronic kidney disease with heart failure and stage 1 through stage 4 chronic kidney disease, or unspecified chronic kidney disease; I27.2 Other secondary pulmonary hypertension; Z68.42 Body mass index [BMI] 45.0-49.9, adult; I44.1 Atrioventricular block, second degree; I50.32 Chronic diastolic (congestive) heart failure; I48.2 Chronic atrial fibrillation; Z79.01 Long term (current) use of anticoagulants; N18.3 Chronic kidney disease, stage 3 (moderate); E66.01 Morbid (severe) obesity due to excess calories; Z95.0 Presence of cardiac pacemaker; G47.33 Obstructive sleep apnea (adult) (pediatric); M10.9 Gout, unspecified; I25.10 Atherosclerotic heart disease of native coronary artery without angina pectoris; L40.9 Psoriasis, unspecified; D64.9 Anemia, unspecified
CPT/HCPCS: 2NASP; 84133; 84300; ERO; 36415; 76775; 78452; 81001; 82436; 82570; 93005; 93010; 93016; 93017; 93306; 97110-GO; 97116-GO; 97161-GP; 97530-GO; A9502; J0131; J1245; J1940; J2270